=== PATIENT | female | born 1930 | race Caucasian/White ===

== ENCOUNTER 2016-11-18 22:18 | Emergency (ER) | payer OTHER ==
[~2016-11-18] VITALS: Ht 158.8 cm; Wt 48.0 kg
[2016-11-18 22:09] VITALS: TEMP 36.4; Ht 158.8 cm; Wt 48.0 kg
[2016-11-18 22:18] VITALS: O2SAT 93
[~2016-11-18 22:18] MED LIST: AMX250 OR; ASCO100061 PO; BACL10TA PO; CHOL20007 PO; CRAN500C2 PO; CYAN10005 PO; DFL100 PO; Enteral Nutrition Formula PO; HYDR-5688 PO; MRLP17 PO; NRV5 PO; POTA1TAB PO; TIMO0.2528 OP; TPRSR50 PO
[2016-11-18 23:28] LABS: HEMATOCRIT 34.8 % (37-47); MEAN CELL VOLUME 93.3 fL (80-100); MEAN CORPUSCULAR HEMOGLOBIN 31.6 pg (25-34); MEAN CORPUSCULAR HGB CONC 33.9 g/dl (32-36); MEAN PLATELET VOLUME 9.8 fL (7.4-10.4); PLATELET COUNT 487 K/uL (130-400); RED BLOOD COUNT 3.73 M/uL (4.2-5.4); WHITE BLOOD COUNT 10.95 K/uL (4.8-10.8)
[2016-11-18 23:45] LABS: PARTIAL THROMBOPLASTIN RATIO 1.1; PROTHROMBIN TIME (PATIENT) 10.4 SECONDS (9.0-12.0)
[2016-11-18 23:46] LABS: BUN/CREATININE RATIO 27.4 (10-20); CALCIUM 8.8 mg/dl (8.5-10.1); CREATININE 0.76 mg/dl (0.60-1.20); POTASSIUM 3.5 mmol/L (3.5-5.1)
[2016-11-18 23:51] LABS: ALB/GLOB RATIO 0.8 (0.9-2); CKMB/CK RATIO 1.4 (0-3.0)
[2016-11-18] MEDS ORDERED: ACETAMINOPHEN 500 MG TAB PO STA (23:55)
[2016-11-18] MEDS ORDERED: ALBUT/IPRATROP 3MG/0.5MG NEB 3 ML VIAL INH STA (23:55)
[2016-11-19 00:03] LABS: BASO % 0.5 %; BASO ABS # 0.06 K/uL (0-0.2); COMPLETE YES; IG% 0.2 %; LYMPH % 6.8 %; LYMPH ABS # 0.75 K/uL (1.2-3.4); MONO % 8.9 %; NEUT % 80.6 %
[2016-11-19] MEDS ORDERED: AMLO5TAB2 PO (00:56)
--- NOTE | 2016-11-19 00:56 | EMERGENCY ROOM VISIT NOTE ---
History Report prepared by Jessenia: Rusty Sotomayor Under the Supervision of: Dr. Sebas Stanton D.O. First contact with patient: 22:54 Chief Complaint: SHORTNESS OF BREATH Stated Complaint: SOB Nursing Triage Summary: sudden onset SOB this evening. in place R sided Pleural Cath 2 weeks ago from here. has been draining well. per [facility] staff. it is drained daily. pt has dressing in place upon arrival. 76% O2 sat for EMS. arrives on non rebreather. pt has chronic tremors, hx COPD, CHF, HTN, Lung CA had Duoneb en route by EMS History of Present Illness The patient is a 85 year old female who presents to the Emergency Room by EMS with complaints of improving shortness of breath beginning 5.5 hours ago. She states that her symptoms began suddenly while eating dinner. She states that supplemental oxygen has improved her symptoms, though she does not typically wear supplemental oxygen at home. The patient currently has a right sided pleural catheter in her chest wall which she has uses to drain fluid once daily. She has a history of lung cancer without any known metastases. The patient's family notes that the patient drained a significantly larger amount of fluid than usual today. The patient denies any known fevers. She notes that she has been sweating a lot lately. Source of History: patient Onset: 5.5 hours ago Quality: other (shortness of breath) Timing: other (improving) Modifying Factors (Relieving): oxygen (supplemental) Associated Symptoms: No fevers Review of Systems See HPI for pertinent positives & negatives. A total of 10 systems reviewed and were otherwise negative. Past Medical & Surgical Medical Problems: (1) GI bleed (2) Lung cancer (3) Pleural effusion Family History No pertinent family history stated. Social History Smoking Status: Former Smoker Housing Status: shelter Occupation Status: retired Current/Historical Medications Scheduled Amlodipine Besylate (Amlodipine Besylate), 10 MG PO QAM Amlodipine Besylate (Norvasc), 10 MG PO QAM Amoxicillin (Amoxicillin), 250 MG OR DAILY Amoxicillin (Amoxil), 250 MG PO DAILY Ascorbic Acid (Ascorbic Acid), 1,000 MG PO DAILY Cholecalciferol (Vitamin D3), 2,000 UNITS PO DAILY Cranberry (Vaccinium Macrocarp (Cranberry), 500 MG PO DAILY Cyanocobalamin (Vitamin B-12), 2,000 MCG PO DAILY Fluconazole (Fluconazole), 200 MG PO DAILY Hydralazine Hcl (Apresoline), 2 TAB PO TID Irbesartan (Avapro), 1 TAB PO DAILY Metoprolol Succinate (Metoprolol Succinate ER), 50 MG PO QAM Potassium Gluconate (Potassium Gluconate), 595 MG PO DAILY Timolol Maleate 0.25% Oph (Timoptic 0.25% Oph), 1 DROP OP BID [Enteral Nutrition Formula], 1 CAN PO BID17 Scheduled PRN Baclofen (Lioresal), 10 MG PO TID PRN for Muscle Spasms Hydrocodone/Acetaminophen 5MG/325MG ([place] 5MG/325MG), 0.5 TAB PO TID PRN for Pain Polyethylene (Miralax), 17 GM PO DAILY PRN for Constipation Miscellaneous Medications Fish Oil ([place]-3), 1 CAP PO Allergies Coded Allergies: Levofloxacin (Verified Allergy, Unknown, HIVES, 12/07/15) Losartan (Verified Allergy, Unknown, HIVES, 12/07/15) Olmesartan (Verified Allergy, Unknown, HIVES, 12/07/15) Pregabalin (Verified Allergy, Unknown, HIVES, 12/07/15) Sulfa Antibiotics (Verified Allergy, Unknown, HIVES, 12/07/15) Tramadol (Verified Allergy, Unknown, HIVES, 12/07/15) Physical Exam Vital Signs Date Time Temp Pulse Resp B/P Pulse Ox O2 Delivery O2 Flow Rate FiO2 11/19/16 00:30 93 Room Air 11/18/16 23:51 79 20 163/63 91 Nasal Cannula 1.0 11/18/16 22:29 82 11/18/16 22:18 93 Nasal Cannula 5.0 11/18/16 22:18 93 Nasal Cannula 5.0 11/18/16 22:09 36.4 90 26 179/65 88 Nasal Cannula 5.0 11/18/16 22:09 86 Room Air Physical Exam CONSTITUTIONAL/VITAL SIGNS: Reviewed / noted above. GENERAL: Non-toxic in appearance. INTEGUMENTARY: Warm, dry, and [place]. HEAD: Normocephalic. EYES: without scleral icterus or trauma. ENT/OROPHARYNX: clear and moist. LYMPHADENOPATHY/NECK: Is supple without lymphadenopathy or meningismus. RESPIRATORY: No respiratory distress. Diminished in the right lung field about care home up the lung. CARDIOVASCULAR: Regular rate and rhythm. GI/ABDOMEN: Soft and nontender. No organomegaly or pulsatile mass. No rebound or guarding. Normal bowel sounds. EXTREMITIES: Warm and well perfused. BACK: No CVA tenderness. NEUROLOGICAL: Intact without focal deficits. PSYCHIATRIC: normal affect. MUSCULOSKELETAL: Normally developed with good muscle tone. Medical Decision & Procedures ER Provider Diagnostic Interpretation: One View Chest X-ray interpreted by me: bilateral pleural effusions. Haziness in the lower lung ramirez bilaterally similar to x-ray dated 10/30/16. Laboratory Results 11/18/16 22:47 Red Blood Count 3.73, Mean Corpuscular Volume 93.3, Mean Corpuscular Hemoglobin 31.6, Mean Corpuscular Hemoglobin Concent 33.9, Mean Platelet Volume 9.8, Neutrophils (%) (Auto) 80.6, Lymphocytes (%) (Auto) 6.8, Monocytes (%) (Auto) 8.9, Eosinophils (%) (Auto) 3.0, Basophils (%) (Auto) 0.5, Neutrophils # (Auto) 8.82, Lymphocytes # (Auto) 0.75, Monocytes # (Auto) 0.97, Eosinophils # (Auto) 0.33, Basophils # (Auto) 0.06 11/18/16 22:47 Test 11/18/16 22:47 11/18/16 23:05 White Blood Count 10.95 K/uL (4.8-10.8) Red Blood Count 3.73 M/uL (4.2-5.4) Hemoglobin 11.8 g/dL (12.0-16.0) Hematocrit 34.8 % (37-47) Mean Corpuscular Volume 93.3 fL (80-100) Mean Corpuscular Hemoglobin 31.6 pg (25-34) Mean Corpuscular Hemoglobin Concent 33.9 g/dl (32-36) Platelet Count 487 K/uL (130-400) Mean Platelet Volume 9.8 fL (7.4-10.4) Neutrophils (%) (Auto) 80.6 % Lymphocytes (%) (Auto) 6.8 % Monocytes (%) (Auto) 8.9 % Eosinophils (%) (Auto) 3.0 % Basophils (%) (Auto) 0.5 % Neutrophils # (Auto) 8.82 K/uL (1.4-6.5) Lymphocytes # (Auto) 0.75 K/uL (1.2-3.4) Monocytes # (Auto) 0.97 K/uL (0.11-0.59) Eosinophils # (Auto) 0.33 K/uL (0-0.5) Basophils # (Auto) 0.06 K/uL (0-0.2) RDW Standard Deviation 52.1 fL (36.4-46.3) RDW Coefficient of Variation 15.3 % (11.5-14.5) Immature Granulocyte % (Auto) 0.2 % Immature Granulocyte # (Auto) 0.02 K/uL (0.00-0.02) Red Blood Cell Morphology Unremarkable Prothrombin Time 10.4 SECONDS (9.0-12.0) Prothromb Time International Ratio 1.0 (0.9-1.1) Activated Partial Thromboplast Time 28.8 SECONDS (21.0-31.0) Partial Thromboplastin Ratio 1.1 Anion Gap 12.0 mmol/L (3-11) Est Creatinine Clear Calc Drug Dose 41.8 ml/min Estimated GFR () 83.5 Estimated GFR (Non- 72.0 BUN/Creatinine Ratio 27.4 (10-20) Calcium Level 8.8 mg/dl (8.5-10.1) Total Bilirubin 0.2 mg/dl (0.2-1) Aspartate Amino Transf (AST/SGOT) 20 U/L (15-37) Alanine Aminotransferase (ALT/SGPT) 14 U/L (12-78) Alkaline Phosphatase 60 U/L (45-117) Total Creatine Kinase 152 U/L (26-192) Creatine Kinase MB 2.2 ng/ml (0.5-3.6) Creatine Kinase MB Ratio 1.4 (0-3.0) Total Protein 5.9 gm/dl (6.4-8.2) Albumin 2.7 gm/dl (3.4-5.0) Globulin 3.2 gm/dl (2.5-4.0) Albumin/Globulin Ratio 0.8 (0.9-2) Bedside Lactic Acid Venous 1.48 mmol/L (0.90-1.70) Laboratory results as stated above per my review. Medications Administered Medications (Trade) Dose Ordered Sig/Maeve Route Start Time Stop Time Status Last Admin Dose Admin Albuterol/ Ipratropium (Duoneb) 3 ml NOW STAT INH 11/18/16 23:55 11/18/16 23:56 DC 11/19/16 00:09 3 ML Acetaminophen (Tylenol Tab) 500 mg NOW STAT PO 11/18/16 23:55 11/18/16 23:56 DC 11/19/16 00:09 500 MG ECG Indication: SOB/dyspnea Rate (beats per minute): 85 Rhythm: sinus rhythm Findings: PVC, no acute ischemic change ED Course 2304: Previous medical records were reviewed. The patient was evaluated in room B11B. A complete history and physical examination was performed. 2355: Ordered Tylenol Tab 500 mg PO, DuoNeb 3 mL INH. 0100: On reevaluation, the patient is resting comfortably. I discussed the results and findings with the patient. She verbalized agreement of the treatment plan. She was discharged home. Medical Decision the differential was considered includes acute myocardial infarction, acute coronary syndrome, myocarditis, pericarditis, pericardial effusions /tamponad, esophageal perforation, pulmonary embolism, pneumonia, pneumothorax, cardiomyopathy, congestive heart, anemia , COPD/asthma exacerbation. The patient is an 85-year-old female who presents to the ED with a chief complaint of shortness of breath and low pulse ox. The patient has a history of pleural effusion and fluid accumulations. She had a parent catheter placed to drain the fluid. The patient 500 mL of fluid drained from the right lung earlier today at the shelter. Additional fluid was not drained this evening. She was found to be hypoxic. She was sent here for evaluation. The patient's lung sounds reveal diminished breath sounds on the right. She is in no distress. CBC shows a white blood cell count of 10.9 and hemoglobin 11.8. Her chemistry panel was unremarkable. Chest x-ray reveals bilateral pleural effusions and looks similar to previous x-ray. The pleural catheter was accessed and 500 mL of fluid was drained of the lung. The patient's saturations after a DuoNeb treatment and this drainage was 93% on room air. Her symptoms improved. She is felt to be stable for discharge and outpatient follow-up. Impression Primary Impression: Pleural effusion Additional Impression: Dyspnea Scribe Attestation The scribe's documentation has been prepared under my direction and personally reviewed by me in its entirety. I confirm that the note above accurately reflects all work, treatment, procedures, and medical decision making performed by me. Departure Information Dispostion Home / Self-Care Referrals Vivek Mayer M.D. (PCP) Patient Instructions A Signature Page, My [facility] Additional Instructions Follow-up with your doctor for further care and evaluation in 1-2 days. Return to the emergency department for worsening or new symptoms or any concerns. You have been examined and treated today on an emergency basis only. This is not a substitute for, or an effort to provide, complete comprehensive medical care. It is impossible to recognize and treat all injuries or illnesses in a single emergency department visit. It is therefore important that you follow up closely with your doctor. Call as soon as possible for an appointment. Problem Qualifiers
[2016-11-19] MEDS ORDERED: AMOX250C3 PO (00:57)
[2016-11-19] MEDS ORDERED: ACET-1311 PO (01:08)
[2016-11-19] MEDS ORDERED: ACET650S10 PR (01:10)
[2016-11-19] MEDS ORDERED: POLY335019 PO (01:11)
[2016-11-19] MEDS ORDERED: BACL10TA PO (01:12)
[2016-11-19] MEDS ORDERED: HYDR-5688 PO (01:14)
[2016-11-19] MEDS ORDERED: MOML PO (01:15)
[2016-11-19 05:41] VITALS: BP 150/70; PULSE 74; O2SAT 96
--- NOTE | 2016-11-19 07:27 | DIAGNOSTIC IMAGING REPORT ---
SINGLE VIEW CHEST CLINICAL HISTORY: Dyspnea. FINDINGS: An AP, portable, upright chest radiograph is compared to study dated 11/04/2016. Correlation is made with PET/CT dated 09/01/2016. The examination is degraded by portable technique and patient rotation. A pleural catheter is again noted at the right lung base. The heart is enlarged and there is atherosclerotic calcification of the thoracic aorta. There is pulmonary vascular congestion with mild interstitial edema. Emphysema and chronic interstitial thickening are similar to previous. There are layering pleural effusions with bibasilar consolidation. No pneumothorax is seen. The skeletal structures are osteopenic. Degenerative change and S-shaped thoracolumbar scoliosis are noted in the spine. There are compression deformities with evidence of previous vertebroplasty in the lumbar spine. IMPRESSION: 1. Cardiomegaly with evidence of congestive failure and interstitial edema. 2. There are layering pleural effusions with bibasilar consolidation. This likely represents atelectasis. Correlate clinically for evidence of a superimposed infectious or inflammatory pneumonitis. 3. Emphysema. 4. A pleural catheter is again noted at the right lung base. Electronically signed by: Anders Orozco M.D. 11/19/2016 7:25 AM Dictated Date/Time: 11/19/2016 7:23 AM
[2017-02-20] MEDS ORDERED: METO50TA7 PO (01:04)
[2017-02-20] MEDS ORDERED: MULT-506 PO (01:06)
[2017-02-20] MEDS ORDERED: ACET-1256 PO (09:38)
[2017-02-20] MEDS ORDERED: TRN400 PO (10:08)
[2017-02-20] MEDS ORDERED: ATRINS NEB (10:08)
[2017-02-20] MEDS ORDERED: UMEC1AER INH (10:08)
[2017-02-20] MEDS ORDERED: MULT-411 PO (10:08)
[2017-02-20] MEDS ORDERED: FAMO20TA11 PO (10:08)
[2017-02-20] MEDS ORDERED: CYAN10005 PO (10:08)
[2017-02-20] MEDS ORDERED: DOCU100T PO (10:08)
[2017-02-20] MEDS ORDERED: AMLO-114 PO (10:08)
[2017-02-20] MEDS ORDERED: DIPH1TAB PO (19:14)
[2017-03-23] MEDS ORDERED: LSX20 PO (12:15)
[2017-03-23] MEDS ORDERED: METH4PAK PO (12:15)
[2017-03-23] MEDS ORDERED: APR25 PO (12:15)
[2017-03-23] MEDS ORDERED: OXYC1TAB3 PO (12:15)
[2017-04-14] MEDS ORDERED: FRS/40 PO (10:48)
[2017-04-14] MEDS ORDERED: POTA10CA28 PO (10:52)
[2017-04-14] MEDS ORDERED: SENN-61 PO (10:54)
[2017-04-14] MEDS ORDERED: OXYC20TA50 PO (10:57)
[2017-04-14] MEDS ORDERED: ACET325T95 PO (10:58)
== END 2016-11-19 05:42 | disposition home or self-care (01) ==
LOC: EDBD 22:18 → C.EDB 22:19
DX: J90 Pleural effusion, not elsewhere classified (principal); R06.00 Dyspnea, unspecified; Z97.8 Presence of other specified devices; C34.90 Malignant neoplasm of unspecified part of unspecified bronchus or lung; I50.9 Heart failure, unspecified; J44.9 Chronic obstructive pulmonary disease, unspecified; I10 Essential (primary) hypertension; Z87.891 Personal history of nicotine dependence

== ENCOUNTER → 2016-11-30 | Outpatient (CLI) | payer OTHER ==
[~2016-11-30] MED LIST changes: +ACET-1256 PO; +ACET-1311 PO; +ACET325T95 PO; +ACET650S10 PR; +AMLO-114 PO; +AMLO5TAB2 PO; +AMOX250C3 PO; -AMX250 OR; +APR25 PO; +ASCO10003 PO; +ASCO1CAP3 PO; +ASPI325T39 PO; +ASPI81TA28 PO; +ATRINS NEB; +CHOL20009 PO; +CIPR-255 PO; +CITA20TA9 PO; +CRAN PO; -DFL100 PO; +DIAZ-165 PO; +DIPH1TAB PO; +DLCS RE; +DOCU100T PO; +FAMO20TA11 PO; +FRS/40 PO; +FURO-85 PO; +HYDR-4715 PO; +HYDR1LOT6 TOP; +IRBE-39 PO; +LSX20 PO; +MELA1TAB22 PO; +METH4PAK PO; +METO50TA7 PO; +MOML PO; -MRLP17 PO; +MULT-411 PO; +MULT-506 PO; -NRV5 PO; +OMEG10007 PO; +ONDA4TAB46 PO; +OXGN; +OXYC1CAP5 PO; +OXYC1TAB3 PO; +OXYC20TA50 PO; +POLY335019 PO; +POTA10CA28 PO; +SENN-61 PO; +SERT25TA PO; +SODI1ENE; +SPIR25TA PO; +TIMO0.05 OP; +TORS20TA2 PO; -TPRSR50 PO; +TRN400 PO; +UMEC1AER INH; +VALA500T60 PO; +melatonin PO; +vitamin d PO
--- NOTE | 2016-11-30 11:23 | DIAGNOSTIC IMAGING REPORT ---
CHEST 2 VIEWS ROUTINE CLINICAL HISTORY: Pleural effusion COMPARISON STUDY: 11/18/2016 FINDINGS: The heart remains enlarged. There is a right-sided pleural drain present. No pneumothorax is visualized. There is an increasing left pleural effusion. There is a persistent small right pleural effusion. There is improving pulmonary vascular congestion. There is persistent left basilar atelectasis/consolidation.[ IMPRESSION: 1. Cardiomegaly and improving pulmonary vascular congestion 2. Enlarging left pleural effusion with associated left basilar atelectasis/consolidation 3. No change the position right-sided chest tube. Small right pleural effusion. No evidence of pneumothorax. Electronically signed by: Chris Carlos M.D. 11/30/2016 11:21 AM Dictated Date/Time: 11/30/2016 11:20 AM
== END | disposition home or self-care (01) ==
LOC: C.RAD1850 10:26
PROVIDERS: ATTEND Surgery
DX: J90 Pleural effusion, not elsewhere classified (principal)

== ENCOUNTER → 2017-01-07 | Outpatient (CLI) | payer OTHER ==
--- NOTE | 2017-01-07 09:50 | DIAGNOSTIC IMAGING REPORT ---
CHEST 2 VIEWS ROUTINE CLINICAL HISTORY: J90 Pleural [id number] dyspnea COMPARISON STUDY: 11/30/2016 FINDINGS: Right basilar catheter unchanged in position. Mild increase in volume of bilateral pleural effusions. Developing components of congestive failure. IMPRESSION: Progressive components of congestive failure. Mild increase in volume of bilateral pleural effusions. Electronically signed by: Leonidas Chaparro M.D. 01/07/2017 9:49 AM Dictated Date/Time: 01/07/2017 9:47 AM
== END | disposition home or self-care (01) ==
LOC: C.RAD1850 09:25
PROVIDERS: ATTEND Internal Medicine
DX: J90 Pleural effusion, not elsewhere classified (principal)

== ENCOUNTER 2017-01-08 09:13 | Day surgery (SDC) | payer OTHER ==
[~2017-01-08] VITALS: Ht 157.5 cm; Wt 47.0 kg
[~2017-01-08 09:13] MED LIST changes: -ACET-1256 PO; -ACET325T95 PO; -AMLO-114 PO; -APR25 PO; -ASCO10003 PO; -ASCO1CAP3 PO; -ASPI325T39 PO; -ASPI81TA28 PO; -ATRINS NEB; -CHOL20009 PO; -CIPR-255 PO; -CITA20TA9 PO; -CRAN PO; -DIAZ-165 PO; -DIPH1TAB PO; -DLCS RE; -DOCU100T PO; -FAMO20TA11 PO; -FRS/40 PO; -FURO-85 PO; -HYDR-4715 PO; -HYDR1LOT6 TOP; -IRBE-39 PO; -LSX20 PO; -MELA1TAB22 PO; -METH4PAK PO; -METO50TA7 PO; -MULT-411 PO; -MULT-506 PO; -OMEG10007 PO; -ONDA4TAB46 PO; -OXGN; -OXYC1CAP5 PO; -OXYC1TAB3 PO; -OXYC20TA50 PO; -POTA10CA28 PO; -SENN-61 PO; -SERT25TA PO; -SODI1ENE; -SPIR25TA PO; -TIMO0.05 OP; -TORS20TA2 PO; -TRN400 PO; -UMEC1AER INH; -VALA500T60 PO; -melatonin PO; -vitamin d PO
[2017-01-08 09:34] VITALS: BP 162/53; PULSE 70; TEMP 36.7; O2SAT 93; Ht 157.5 cm; Wt 47.0 kg
[2017-01-08] MEDS ORDERED: ACET-1256 PO (09:36)
[2017-01-08] MEDS ORDERED: CRAN PO (10:08)
[2017-01-08] MEDS ORDERED: ASPI325T39 PO (10:08)
[2017-01-08] MEDS ORDERED: VALA500T60 PO (10:08)
[2017-01-08] MEDS ORDERED: melatonin PO (10:08)
[2017-01-08] MEDS ORDERED: vitamin d PO (10:08)
[2017-01-08] MEDS ORDERED: SODI1ENE (10:08)
[2017-01-08] MEDS ORDERED: DLCS RE (10:08)
[2017-01-08] MEDS ORDERED: OXGN (10:08)
[2017-01-08] MEDS ORDERED: SERT25TA PO (10:08)
[2017-01-08] MEDS ORDERED: FURO-85 PO (10:08)
[2017-01-08] MEDS ORDERED: HYDR-4715 PO (10:08)
[2017-01-08] MEDS ORDERED: ACET-1311 PO (10:08)
[2017-01-08] MEDS ORDERED: ASCO1CAP3 PO (10:08)
[2017-01-08] MEDS ORDERED: SPIR25TA PO (10:08)
[2017-01-08] MEDS ORDERED: LIDOCAINE HCL 1% 20 ML VIAL ONE (10:55)
--- NOTE | 2017-01-08 11:32 | SURGERY PROGRESS NOTE ---
DATE: 01/08/2017 SUBJECTIVE: Ms. Cedeño was seen in the career development associate unit. She is quite short of breath. We did discuss placing the PleurX versus a thoracentesis again this morning. She has decreased breath sounds on both sides. We just drained her left PleurX catheter for 350 mL yesterday, which is less than 24 hours ago. I drained it again and I got 225 mL of a clear yellow fluid. I am going to insert a PleurX catheter on the right side for an enlarging pleural effusion. I did do an ultrasound and she has got a large amount of fluid. Her saturation on room air is also 89%.
--- NOTE | 2017-01-08 11:44 | Discharge Instructions ---
Discharge Instructions Visit Reason for Visit: Left Pleural Effusion Discharge Goals Goal(s): Improve function (should help with breathing.) Activity Recommendations Activity Limitations: resume your previous activity Anesthesia . Post Anesthesia Instructions: If you have had General Anesthesia or IV Sedation: * Do not drive today. * Resume driving when surgeon permits. * Do not make important decisions or sign legal documents today. * Call surgeon for: 1. Temperature elevations greater than 101 degrees F. 2. Uncontrollable pain. 3. Excessive bleeding. 4. Persistent nausea and vomiting. 5. Medication intolerance (nausea, vomiting or rash). * For nausea and vomiting use only clear liquids such as: tea, soda, bouillon until nausea subsides, then gradually increase diet as tolerated. * If you have any concerns or questions, call your surgeon's office. If physician is unavailable and it is an emergency, call 911 or go to the nearest emergency room. . Diet Recommendations Recommended Home Diet: no limitations Procedures Procedures Performed: Right pleurx drainage and left pleurx insertion. Right - 225 cc's, Left pleurx - 1,200 cc's Pending Studies Studies pending at discharge: no Medical Emergencies . Who to Call and When: Medical Emergencies: If at any time you feel your situation is an emergency, please call 911 immediately. . Non-Emergent Contact . . "Provider Documentation" section prepared by Dandre Blair.
--- NOTE | 2017-01-08 11:47 | OPERATIVE REPORT ---
DATE OF OPERATION: 01/08/2017 DATE OF PROCEDURE: 01/08/2017. PROCEDURE: Insertion of a left PleurX catheter. SURGEON: Dr. Blair. ANESTHESIA: Local. SPECIFICS OF PROCEDURE: This is a very nice 86-year-old female who has actually multiple problems including inoperable coronary artery disease as well as an early stage lung cancer. Given her age and coronary artery disease the patient declined SBRT therapy for her T1 nonsmall cell lung carcinoma. On 10/28/2016 I placed a right PleurX catheter and we have been draining her since that time. Unfortunately, in the interim, she fell and broke her hip and has been hospitalized at [facility] where they tapped her left side about 3 weeks ago for 1100 mL. Unfortunately, this reaccumulated. I saw her in the office yesterday and she and her daughter are both quite concerned about her shortness of breath. After looking at her x-ray I felt that we had drained her well on the right side, but I was concerned about the left. For this reason, we elected to insert a PleurX catheter. PROCEDURE: On 01/08/2017 after appropriate timeout had been called. The patient's left side was prepped and draped in the usual sterile fashion with the patient in a modified right lateral decubitus position. Under ultrasound guidance, I had marked the spot with ink. I then prepped her out, I then anesthetized the area under the inked spot anterior to the posterior axillary line. Free flowing fluid was obtained and a guidewire was inserted through the needle and needle removed. About 12 cm anterior to this, another skin wheal was raised 25 gauge needle, 1% Xylocaine. I made a 1 cm incision at both. I then used a long needle and anesthetized from the anterior to posterior incisions along the subcutaneous tissues. A tunneler was then attached to the PleurX catheter and dragged from the anterior to posterior incision and the tunneler removed. Introducer sheath was then slid over the guidewire with an inner cannula posterior, inner cannula and guidewire removed and the PleurX catheter was inserted through the peel away sheath which was removed. Two separate 3-0 silk sutures used to close the posterior incision and a 3-0 silk suture was used to anchor the catheter to the patient's skin anteriorly. About 1200 mL of a rust colored fluid was drained. She tolerated it well and chest x-ray is pending at this time. Incidentally, the pH of the fluid which was drawn off was 7.50. Appropriate labs were sent. I attest to the content of the Intraoperative Record and any orders documented therein. Any exceptio ns are noted below.
[2017-01-08 11:50] VITALS: BP 144/59; PULSE 75; TEMP 36.4; O2SAT 91
--- NOTE | 2017-01-08 12:00 | DIAGNOSTIC IMAGING REPORT ---
CHEST ONE VIEW PORTABLE CLINICAL HISTORY: PLEURAL EFFUSION STATUS POST PLEURAL DRAINAGE CATHETER INSERTION COMPARISON STUDY: January 2017 FINDINGS: The heart is mildly enlarged. There are bilateral pleural drainage catheters area there is been marked interval decrease in the size of the left pleural effusion. There is slight decrease in the size of the right pleural effusion. There is an 18 mm left apical pneumothorax. There are bilateral interstitial opacities, consistent with congestive failure and interstitial edema. This is asymmetric on the right.[There is a stable right proximal humeral deformity. IMPRESSION: 1. Marked interval decrease in the size of the left pleural effusion status post insertion of a left pleural drainage catheter 2. 18 mm left apical pneumothorax 3. Interstitial edema pattern Electronically signed by: Chris Carlos M.D. 01/08/2017 11:59 AM Dictated Date/Time: 01/08/2017 11:51 AM
[2017-01-08 12:20] LABS: PLEURAL FLUID TOTAL PROTEIN 2.7 g/dl
[2017-01-08 12:48] LABS: PLEURAL FLUID APPEARANCE HAZY; PLEURAL FLUID COLOR YELLOW; PLEURAL FLUID MONONUC RELAT 83.6 %; PLEURAL FLUID POLYNUC 16.4 %; PLEURAL FLUID SOURCE LEFT LUNG; PLEURAL FLUID WBC (A) 554 /uL
[2017-02-20] MEDS ORDERED: METO50TA7 PO (01:04)
[2017-02-20] MEDS ORDERED: MULT-506 PO (01:06)
[2017-02-20] MEDS ORDERED: ACET-1256 PO (09:38)
[2017-02-20] MEDS ORDERED: TRN400 PO (10:08)
[2017-02-20] MEDS ORDERED: CYAN10005 PO (10:08)
[2017-02-20] MEDS ORDERED: FAMO20TA11 PO (10:08)
[2017-02-20] MEDS ORDERED: MULT-411 PO (10:08)
[2017-02-20] MEDS ORDERED: DOCU100T PO (10:08)
[2017-02-20] MEDS ORDERED: AMLO-114 PO (10:08)
[2017-02-20] MEDS ORDERED: UMEC1AER INH (10:08)
[2017-02-20] MEDS ORDERED: ATRINS NEB (10:08)
[2017-02-20] MEDS ORDERED: DIPH1TAB PO (19:14)
[2017-03-23] MEDS ORDERED: LSX20 PO (12:15)
[2017-03-23] MEDS ORDERED: APR25 PO (12:15)
[2017-03-23] MEDS ORDERED: OXYC1TAB3 PO (12:15)
[2017-03-23] MEDS ORDERED: METH4PAK PO (12:15)
[2017-04-14] MEDS ORDERED: FRS/40 PO (10:48)
[2017-04-14] MEDS ORDERED: POTA10CA28 PO (10:52)
[2017-04-14] MEDS ORDERED: SENN-61 PO (10:54)
[2017-04-14] MEDS ORDERED: OXYC20TA50 PO (10:57)
[2017-04-14] MEDS ORDERED: ACET325T95 PO (10:58)
== END 2017-01-08 11:59 | disposition home or self-care (01) ==
LOC: C.ACU 09:13
PROVIDERS: ATTEND Surgery
DX: J91.8 Pleural effusion in other conditions classified elsewhere (principal); C34.90 Malignant neoplasm of unspecified part of unspecified bronchus or lung; I25.10 Atherosclerotic heart disease of native coronary artery without angina pectoris

== ENCOUNTER → 2017-02-02 | Outpatient (CLI) | payer OTHER ==
[~2017-02-02] MED LIST changes: +ACET-1256 PO; +ACET325T95 PO; -ACET650S10 PR; +AMLO-114 PO; -AMLO5TAB2 PO; -AMOX250C3 PO; +APR25 PO; +ASCO10003 PO; -ASCO100061 PO; +ASCO1CAP3 PO; +ASPI325T39 PO; +ASPI81TA28 PO; +ATRINS NEB; -BACL10TA PO; -CHOL20007 PO; +CHOL20009 PO; +CIPR-255 PO; +CITA20TA9 PO; +CRAN PO; +DIAZ-165 PO; +DIPH1TAB PO; +DLCS RE; +DOCU100T PO; -Enteral Nutrition Formula PO; +FAMO20TA11 PO; +FRS/40 PO; +FURO-85 PO; +HYDR-4715 PO; +HYDR1LOT6 TOP; +IRBE-39 PO; +LSX20 PO; +MELA1TAB22 PO; +METH4PAK PO; +METO50TA7 PO; +MULT-411 PO; +MULT-506 PO; +OMEG10007 PO; +ONDA4TAB46 PO; +OXGN; +OXYC1CAP5 PO; +OXYC1TAB3 PO; +OXYC20TA50 PO; -POLY335019 PO; +POTA10CA28 PO; -POTA1TAB PO; +SENN-61 PO; +SERT25TA PO; +SODI1ENE; +SPIR25TA PO; +TIMO0.05 OP; +TORS20TA2 PO; +TRN400 PO; +UMEC1AER INH; +VALA500T60 PO; +melatonin PO; +vitamin d PO
--- NOTE | 2017-02-02 10:04 | DIAGNOSTIC IMAGING REPORT ---
CHEST 2 VIEWS ROUTINE CLINICAL HISTORY: Pleural effusion COMPARISON STUDY: 01/08/2017 FINDINGS: There are persistent bilateral pleural effusions. Bilateral pleural drainage catheters are again visualized. There is underlying emphysema. There are improving right upper lung zone airspace opacities. There is a new 15 mm nodular opacity within the left upper lung zone. No pneumothorax is visualized.[ On the lateral view there is an elliptical opacity projected of the spine, likely representing intrafissural fluid. IMPRESSION: 1. Persistent bilateral pleural drainage catheters 2. Persistent small bilateral pleural effusions 3. Improving right upper lobe airspace opacities 4. No pneumothorax 5. 15 mm nodular left upper lung zone opacity Electronically signed by: Chris Carlos M.D. 02/02/2017 10:03 AM Dictated Date/Time: 02/02/2017 10:00 AM
== END | disposition home or self-care (01) ==
LOC: C.RAD1850 09:27
PROVIDERS: ATTEND Surgery
DX: J90 Pleural effusion, not elsewhere classified (principal)

== ENCOUNTER 2017-02-20 18:10 | Inpatient (IN) | payer OTHER ==
[~2017-02-20] VITALS: Ht 172.7 cm; Wt 41.0 kg
[~2017-02-20 18:10] MED LIST changes: -ACET325T95 PO; -APR25 PO; -ASCO10003 PO; -ASPI81TA28 PO; -CHOL20009 PO; -CIPR-255 PO; -CITA20TA9 PO; -CRAN500C2 PO; -DIAZ-165 PO; -DIPH1TAB PO; -FRS/40 PO; -HYDR-4715 PO; -HYDR1LOT6 TOP; -IRBE-39 PO; -LSX20 PO; -MELA1TAB22 PO; -METH4PAK PO; -OMEG10007 PO; -ONDA4TAB46 PO; -OXYC1CAP5 PO; -OXYC1TAB3 PO; -OXYC20TA50 PO; -POTA10CA28 PO; -SENN-61 PO; -TIMO0.05 OP; -TORS20TA2 PO
--- NOTE | 2017-02-20 18:22 | EMERGENCY ROOM VISIT NOTE ---
History Report prepared by Jessenia: Marnie Lutz Under the Supervision of: Dr. Sebas Curran M.D. First contact with patient: 18:13 Chief Complaint: RESPIRATORY PROBLEMS Stated Complaint: SOB History of Present Illness The patient is an 86 year old female who presents to the Emergency Room with complaints of worsening respiratory problems. She was brought to the ED via EMS from [facility], where she resides. The patient reports around 1700 this evening, her shortness of breath worsened, so she called an ambulance. The patient has a history of lung cancer and pleural effusions and has bilateral chest tubes in place, that she states the nurses at her facility "drain 250 mL of fluid off every day". EMS reports a total of 900 mL was drained from the tubes today. The patient normally wears 1 Liter of Oxygen and notes it usually provides relief. Her Oxygen saturation was 89% on room air in the field. She also complains of chest pain with inspiration and diffuse abdominal pain. Source of History: patient, EMS Onset: 1700 today Position: chest Quality: other (shortness of breath) Timing: worsening Modifying Factors (Relieving): oxygen Associated Symptoms: + abdominal pain, + chest pain Review of Systems See HPI for pertinent positives & negatives. A total of 10 systems reviewed and were otherwise negative. Past Medical & Surgical Medical Problems: (1) GI bleed (2) Lung cancer (3) Pleural effusion (4) Pleural effusion Social History Smoking Status: Former Smoker Alcohol Use: none Drug Use: none Marital Status: Housing Status: alf Occupation Status: retired Current/Historical Medications Scheduled Acetaminophen (Tylenol), 500 MG PO Q6 Amlodipine (Norvasc), 10 MG PO DAILY Ascorbic Acid (Vitamin C), 1,000 MG PO DAILY Aspirin (Aspirin Ec), 81 MG PO QAM Cholecalciferol (Vitamin D), 2,000 UNITS PO QAM Citalopram Hydrobromide (Celexa), 20 MG PO HS Cranberry (Vaccinium Macrocarp (Cranberry), 1 CAP PO BID Cyanocobalamin (Vitamin B-12), 2,000 MCG PO DAILY Docusate Sodium (Dok), 100 MG PO BID Famotidine (Pepcid), 20 MG PO BID Fish Oil ([place]-3), 1,000 MG PO DAILY Hydralazine Hcl (Apresoline), 20 MG PO TID Ipratropium [place] (Ipratropium [place]), 1 VIAL NEB QID Irbesartan (Avapro), 300 MG PO DAILY Melatonin-Pyridoxine (Melatonin), 3 MG PO HS Metoprolol Succ (Toprol Xl) (Toprol-Xl), 50 MG PO DAILY Multiple Vitamin (Daily Hortencia), 1 TAB PO DAILY Oxycodone Hcl (Oxycodone Hcl), 1 CAP PO QID Pentoxifylline (Pentoxifylline ER), 400 MG PO BID Spironolactone (Aldactone), 25 MG PO QAM Timolol Maleate (Ophth) (Timoptic 0.25% Oph), 1 DROP OP AMPM Torsemide (Demadex), 20 MG PO DAILY Umeclidinium-Vilanterol (Anoro Ellipta 62.5-25 Mcg/INH), 1 PUFF INH DAILY Scheduled PRN Bisacodyl (Bisac-Evac), 10 MG RE DAILY PRN for Constipation Diazepam (Valium), 5 MG PO QID PRN for Anxiety Diphenhydramine Hcl (Benadryl Allergy), 25 MG PO Q6 PRN for Itching Hydrocortisone (Topical) (Hydrocortisone), 1 APPLN TOP BID PRN for Itching Magnesium Hydroxide (Milk Of Magnesia), 30 ML PO DAILY PRN for Constipation Oxycodone Ir (Roxicodone Ir), 1-2 TAB PO Q4H PRN for Severe Pain Allergies Coded Allergies: Levofloxacin (Verified Allergy, Unknown, HIVES, 01/08/17) Losartan (Verified Allergy, Unknown, HIVES, 01/08/17) Olmesartan (Verified Allergy, Unknown, HIVES, 01/08/17) Pregabalin (Verified Allergy, Unknown, HIVES, 01/08/17) Sulfa Antibiotics (Verified Allergy, Unknown, HIVES, 12/07/15) Tramadol (Verified Allergy, Unknown, HIVES, 12/07/15) Physical Exam Vital Signs Date Time Temp Pulse Resp B/P Pulse Ox O2 Delivery O2 Flow Rate FiO2 02/20/17 21:40 83 24 99 02/20/17 21:30 120/98 02/20/17 21:10 90 32 98 02/20/17 21:05 85 20 97 02/20/17 21:00 149/60 02/20/17 20:35 91 25 96 02/20/17 20:31 146/64 02/20/17 20:00 123/52 97 Nasal Cannula 2.0 02/20/17 19:40 88 27 91 02/20/17 19:35 88 22 123/52 94 Nasal Cannula 2.0 02/20/17 19:34 88 Room Air 02/20/17 19:30 175/71 02/20/17 19:10 75 27 100 Nebulizer 02/20/17 19:00 173/65 02/20/17 18:46 68 02/20/17 18:40 68 24 100 Nebulizer 02/20/17 18:30 182/73 02/20/17 18:23 89 Room Air 02/20/17 18:23 98 Nasal Cannula 2.0 02/20/17 18:23 36.8 67 26 173/58 100 Nasal Cannula 2.0 02/20/17 18:23 89 Room Air Physical Exam GENERAL: Patient is cachectic-appearing. HEAD: Normocephalic atraumatic EYES: Ocular movements intact pupils equal and react to light OROPHARYNX mucous membranes are moist no exudates present no erythema or edema present NECK: Supple no nuchal rigidity CHEST: Good equal expansion, [address] LUNGS: Clear and equal to auscultation CARDIAC: Normal S1 and S2 ABDOMEN: Soft nontender no guarding BACK: No CVA tenderness EXTREMITIES: No pain upon palpation normal muscle strength in all groups no clubbing cyanosis or edema NEURO: Patient is following commands is answering questions appropriately. Alert and oriented x3 Cranial Nerves 2-12 grossly intact Medical Decision & Procedures ER Provider Diagnostic Interpretation: This X-Ray was reviewed and interpreted by myself and the radiologist. CHEST ONE VIEW PORTABLE IMPRESSION: 1. Interstitial thickening and patchy bilateral opacities. Mild pulmonary edema is favored although an infectious process could appear similar. 2. Interval decrease in bilateral pleural effusions since prior exam. Bilateral pleural catheters remain in place. No pneumothorax identified. 3. Redemonstration of the 2 cm irregular left upper lobe nodule. Electronically signed by: Jean Mcdonald M.D. 02/20/2017 6:[address] scans were reviewed and interpreted by the radiologist and reviewed by myself. CT OF THE ABDOMEN AND PELVIS WITH CONTRAST IMPRESSION: 1. Exam significantly compromised by paucity of intra-abdominal fat and lack of oral contrast. 2. Moderate right hydronephrosis of uncertain etiology. No ureteral calculus identified. 3. Extensive colonic diverticulosis without evidence for acute diverticulitis. 4. No bowel obstruction. 5. Moderate gallbladder distention without pericholecystic infiltration. This is likely unchanged since prior PET/CT. Electronically signed by: Jean Mcdonald M.D. 02/20/2017 8:[address] ANGIOGRAPHY OF THE CHEST, PULMONARY EMBOLUS PROTOCOL IMPRESSION: 1. No pulmonary emboli identified. 2. Small bilateral pleural effusions with bilateral pleural catheters in place. The effusions have decreased in size since CT of November 20, 2016. 3. Consolidation within the posterior segment of the right upper lobe with scattered additional airspace opacities throughout the lungs which favor a multifocal pneumonia. 4. No change in the 2.1 cm spiculated left upper lobe nodule suggestive of primary bronchogenic carcinoma. 5. Moderate to severe emphysema. 6. Moderate cardiomegaly and extensive coronary artery calcification. Electronically signed by: Jean Mcdonald M.D. 02/20/2017 8:34 PM Laboratory Results 02/20/17 18:50 Red Blood Count 3.51, Mean Corpuscular Volume 92.0, Mean Corpuscular Hemoglobin 30.2, Mean Corpuscular Hemoglobin Concent 32.8, Mean Platelet Volume 9.1, Neutrophils (%) (Auto) 77.1, Lymphocytes (%) (Auto) 9.9, Monocytes (%) (Auto) 10.3, Eosinophils (%) (Auto) 1.7, Basophils (%) (Auto) 0.6, Neutrophils # (Auto ) 7.64, Lymphocytes # (Auto) 0.98, Monocytes # (Auto) 1.02, Eosinophils # (Auto ) 0.17, Basophils # (Auto) 0.06 02/20/17 18:50 Test 02/20/17 18:50 02/20/17 21:56 White Blood Count 9.91 K/uL (4.8-10.8) Red Blood Count 3.51 M/uL (4.2-5.4) Hemoglobin 10.6 g/dL (12.0-16.0) Hematocrit 32.3 % (37-47) Mean Corpuscular Volume 92.0 fL (80-100) Mean Corpuscular Hemoglobin 30.2 pg (25-34) Mean Corpuscular Hemoglobin Concent 32.8 g/dl (32-36) Platelet Count 490 K/uL (130-400) Mean Platelet Volume 9.1 fL (7.4-10.4) Neutrophils (%) (Auto) 77.1 % Lymphocytes (%) (Auto) 9.9 % Monocytes (%) (Auto) 10.3 % Eosinophils (%) (Auto) 1.7 % Basophils (%) (Auto) 0.6 % Neutrophils # (Auto) 7.64 K/uL (1.4-6.5) Lymphocytes # (Auto) 0.98 K/uL (1.2-3.4) Monocytes # (Auto) 1.02 K/uL (0.11-0.59) Eosinophils # (Auto) 0.17 K/uL (0-0.5) Basophils # (Auto) 0.06 K/uL (0-0.2) RDW Standard Deviation 61.4 fL (36.4-46.3) RDW Coefficient of Variation 18.1 % (11.5-14.5) Immature Granulocyte % (Auto) 0.4 % Immature Granulocyte # (Auto) 0.04 K/uL (0.00-0.02) Anion Gap 8.0 mmol/L (3-11) Est Creatinine Clear Calc Drug Dose 43.6 ml/min Estimated GFR () 91.6 Estimated GFR (Non- 79.0 BUN/Creatinine Ratio 30.0 (10-20) Calcium Level 8.2 mg/dl (8.5-10.1) Total Bilirubin 0.2 mg/dl (0.2-1) Aspartate Amino Transf (AST/SGOT) 17 U/L (15-37) Alanine Aminotransferase (ALT/SGPT) 12 U/L (12-78) Alkaline Phosphatase 77 U/L (45-117) Total Creatine Kinase 45 U/L (26-192) Creatine Kinase MB 1.2 ng/ml (0.5-3.6) Creatine Kinase MB Ratio 2.7 (0-3.0) Troponin I < 0.015 ng/ml (0-0.045) Pro-B-Type Natriuretic Peptide 69033 pg/ml (0-1800) Total Protein 6.0 gm/dl (6.4-8.2) Albumin 2.5 gm/dl (3.4-5.0) Globulin 3.5 gm/dl (2.5-4.0) Albumin/Globulin Ratio 0.7 (0.9-2) Urine Color YELLOW Urine Appearance TURBID (CLEAR) Urine pH 6.0 (4.5-7.5) Urine Specific [place] 1.027 (1.000-1.030) Urine Protein NEG (NEG) Urine Glucose (UA) NEG (NEG) Urine Ketones NEG (NEG) Urine Occult Blood 1+ (NEG) Urine Nitrite NEG (NEG) Urine Bilirubin NEG (NEG) Urine Urobilinogen NEG (NEG) Urine Leukocyte Esterase LARGE (NEG) Urine WBC (Auto) >30 /hpf (0-5) Urine RBC (Auto) 5-10 /hpf (0-4) Urine Hyaline Casts (Auto) 1-5 /lpf (0-5) Urine Epithelial Cells (Auto) 20-30 /lpf (0-5) Urine Bacteria (Auto) 4+ (NEG) Labs reviewed by ED physician. Medications Administered Medications (Trade) Dose Ordered Sig/Maeve Route Start Time Stop Time Status Last Admin Dose Admin Albuterol/ Ipratropium (Duoneb) 12 ml ONE ONCE INH 02/20/17 18:30 02/20/17 18:31 DC 02/20/17 18:37 12 ML Torsemide (Demadex Tab) 20 mg NOW STAT PO 02/20/17 19:38 02/20/17 19:40 DC 02/20/17 19:57 20 MG Morphine Sulfate (MoRPHine SULFATE INJ) 4 mg NOW STAT IV 02/20/17 19:46 02/20/17 19:48 DC 02/20/17 19:58 4 MG Ondansetron HCl (Zofran Inj) 4 mg NOW STAT IV 02/20/17 19:46 02/20/17 19:48 DC 02/20/17 19:58 4 MG Piperacillin Sod/ Tazobactam Sod 4.5 gm 4.5 gm NOW STAT IV 02/20/17 20:59 02/20/17 21:03 DC 02/20/17 21:32 4.5 GM Azithromycin/ Dextrose (Zithromax IV/D5 250ml) 255 ml @ 125 mls/hr ONE STAT IV 02/20/17 20:59 02/20/17 23:01 DC 4/15/17 23:07 125 MLS/HR ECG Indication: SOB/dyspnea Rate (beats per minute): 70 Rhythm: normal sinus (normal sinus rhythm) Findings: no acute ischemic change, no ectopy ED Course 1816: Past medical records reviewed. The patient was evaluated in room B6. A complete history and physical examination was performed. 1829: DuoNeb 12 ml INH. 1937: Demadex Tab 20 mg PO. 1939: I reevaluated the patient. She is resting comfortably. I discussed my recommendation that she remain in the hospital for further evaluation and management and she verbalized complete understanding and agreement. 1942: I discussed the patients case with Dr. Mejia [facility] Hospitalist. The patient will be further evaluated. 1945: Zofran 4 mg IV, Morphine Sulfate 4 mg IV. 2046: I spoke with the patients family members. I informed them of my recommendation that the patient remain in the hospital for further evaluation and management and they verbalized complete understanding and agreement. Medical Decision Prior records/ancillary studies reviewed. Triage Nursing notes reviewed. Additional history obtained from the family. The patient's history was concerning for respiratory difficulties. Differential diagnosis: Etiologies such as infections, reactive airway disease, pneumonia, pneumothorax , COPD, CHF, cardiac ischemia, pulmonary embolism, musculoskeletal, gastrointestinal, as well as others were entertained. This is an 86-year-old female who presents emergency department complaining of shortness of breath. The patient has [address] and she had increased drainage today from them. Her chest x-rays concerning for pulmonary edema versus pneumonia. For this reason she was sent for a CAT scan of the chest which is concerning for pneumonia. The patient was pancultured up and given her diuretic. She was started on antibiotics here in the emergency department. I did discuss the case with hospitalist service who agreed to admit the patient. Patient was in agreement with the treatment plan. Consults Time Called: 1939 Consulting Physician: Dr. Mejia [facility] Hospitalist Returned Call: 1942 I discussed the patients case with Dr. Mejia [facility] Hospitalist. The patient will be further evaluated. Impression Primary Impression: Hypoxia Additional Impression: Pulmonary edema Scribe Attestation The scribe's documentation has been prepared under my direction and personally reviewed by me in its entirety. I confirm that the note above accurately reflects all work, treatment, procedures, and medical decision making performed by me. Departure Information Dispostion Being Evaluated By Hospitalist Referrals Vivek Mayer M.D. (PCP) Patient Instructions [facility] Problem Qualifiers Additional Impression: Pulmonary edema Chronicity: acute Qualified Codes: J81.0 - Acute pulmonary edema
[2017-02-20] MEDS ORDERED: ALBUT/IPRATROP 3MG/0.5MG NEB 3 ML VIAL INH ONE (18:30)
--- NOTE | 2017-02-20 18:49 | DIAGNOSTIC IMAGING REPORT ---
CHEST ONE VIEW PORTABLE CLINICAL HISTORY: Shortness of breath. COMPARISON STUDY: Chest radiograph February 02, 2017. FINDINGS: A 2 cm left upper lobe nodular density is again noted. Bilateral basilar pleural catheters remain in place. Pleural effusions have decreased in size since exam of January 25, 2017. There is mild interstitial thickening and patchy bilateral airspace opacities. A skin fold projects of the right hemithorax. No pneumothorax is visualized. Cardiomediastinal silhouette is stable. IMPRESSION: 1. Interstitial thickening and patchy bilateral opacities. Mild pulmonary edema is favored although an infectious process could appear similar. 2. Interval decrease in bilateral pleural effusions since prior exam. Bilateral pleural catheters remain in place. No pneumothorax identified. 3. Redemonstration of the 2 cm irregular left upper lobe nodule. Electronically signed by: Jean Mcdonald M.D. 02/20/2017 6:48 PM Dictated Date/Time: 02/20/2017 6:43 PM
[2017-02-20 19:00] LABS: BASO % 0.6 %; BASO ABS # 0.06 K/uL (0-0.2); COMPLETE YES; EOS % 1.7 %; HEMATOCRIT 32.3 % (37-47); IG% 0.4 %; LYMPH % 9.9 %; LYMPH ABS # 0.98 K/uL (1.2-3.4); MEAN CORPUSCULAR HEMOGLOBIN 30.2 pg (25-34); MEAN CORPUSCULAR HGB CONC 32.8 g/dl (32-36); MEAN PLATELET VOLUME 9.1 fL (7.4-10.4); MONO % 10.3 %; NEUT % 77.1 %; PLATELET COUNT 490 K/uL (130-400); RED BLOOD COUNT 3.51 M/uL (4.2-5.4); WHITE BLOOD COUNT 9.91 K/uL (4.8-10.8)
[2017-02-20] MEDS ORDERED: SPIR25TA PO (19:06)
[2017-02-20] MEDS ORDERED: CHOL20009 PO (19:06)
[2017-02-20] MEDS ORDERED: CRAN500C2 PO (19:06)
[2017-02-20] MEDS ORDERED: ASCO10003 PO (19:06)
[2017-02-20] MEDS ORDERED: DIAZ-165 PO (19:06)
[2017-02-20] MEDS ORDERED: ASPI81TA28 PO (19:06)
[2017-02-20] MEDS ORDERED: TORS20TA2 PO (19:06)
[2017-02-20] MEDS ORDERED: TIMO0.05 OP (19:06)
[2017-02-20] MEDS ORDERED: OXYC1CAP5 PO (19:06)
[2017-02-20] MEDS ORDERED: CITA20TA9 PO (19:06)
[2017-02-20] MEDS ORDERED: DIPH1TAB87 PO (19:14)
[2017-02-20] MEDS ORDERED: OXYC1TAB3 PO (19:14)
[2017-02-20] MEDS ORDERED: MELA1TAB22 PO (19:14)
[2017-02-20] MEDS ORDERED: HYDR1LOT6 TOP (19:14)
[2017-02-20 19:19] LABS: ALT/SGPT 12 U/L (12-78); AST/SGOT 17 U/L (15-37); BLOOD UREA NITROGEN 21 mg/dl (7-18); CALCIUM 8.2 mg/dl (8.5-10.1); CARBON DIOXIDE 27 mmol/L (21-32); CHLORIDE 105 mmol/L (98-107); GLUCOSE 84 mg/dl (70-99); POTASSIUM 3.5 mmol/L (3.5-5.1); SODIUM 140 mmol/L (136-145)
[2017-02-20 19:32] LABS: ALB/GLOB RATIO 0.7 (0.9-2); ALKALINE PHOSPHATASE 77 U/L (45-117); CKMB/CK RATIO 2.7 (0-3.0)
[2017-02-20] MEDS ORDERED: TORSEMIDE 20 MG TAB PO STA (19:38)
[2017-02-20] MEDS ORDERED: MoRPHine SULFATE 4 MG/ML 1 ML CARP\\VIAL IV STA (19:46)
[2017-02-20] MEDS ORDERED: ONDANSETRON INJ 2 MG/ML 2 ML VIAL IV STA (19:46)
[2017-02-20] MEDS ORDERED: IRBE-39 PO (20:07)
[2017-02-20] MEDS ORDERED: HYDR-4715 PO (20:12)
[2017-02-20] MEDS ORDERED: OMEG10007 PO (20:20)
[2017-02-20] MEDS ORDERED: OPTIRAY 320 IV PRN (20:30)
--- NOTE | 2017-02-20 20:36 | DIAGNOSTIC IMAGING REPORT ---
CT ANGIOGRAPHY OF THE CHEST, PULMONARY EMBOLUS PROTOCOL CLINICAL HISTORY: Shortness of breath. Chest pain. Non-small cell lung cancer. COMPARISON STUDY: Chest CT November 20, 2016 and chest radiograph performed earlier today. TECHNIQUE: Following IV administration of 118 mL of Optiray-320, helical axial images of the chest were obtained utilizing the pulmonary embolus protocol. Maximal intensity projections and sagittal and coronal reformats were viewed on an independent 3D workstation. IV contrast was administered without complication. CT DOSE: 422.25 mGy.cm FINDINGS: No pulmonary emboli are identified. There is no evidence of thoracic aortic dissection. The heart is moderately enlarged. This extensive coronary artery calcification. There is no pericardial effusion. Bilateral pleural catheters are in place. Small bilateral pleural effusions have decreased in size since exam of November 20, 2016. There is no pneumothorax. There is severe emphysema. A 2.1 cm spiculated left upper lobe nodule is similar to exam of November 20, 2016. There is consolidation within the posterior segment of the right upper lobe. There are scattered additional airspace opacities throughout the lungs which are new since prior CT. There is an old sternal fracture. There is an old L1 compression fracture with mild retropulsion. There are old bilateral rib fractures. An old T4 compression fracture is present. IMPRESSION: 1. No pulmonary emboli identified. 2. Small bilateral pleural effusions with bilateral pleural catheters in place. The effusions have decreased in size since CT of November 20, 2016. 3. Consolidation within the posterior segment of the right upper lobe with scattered additional airspace opacities throughout the lungs which favor a multifocal pneumonia. 4. No change in the 2.1 cm spiculated left upper lobe nodule suggestive of primary bronchogenic carcinoma. 5. Moderate to severe emphysema. 6. Moderate cardiomegaly and extensive coronary artery calcification. Electronically signed by: Jean Mcdonald M.D. 02/20/2017 8:34 PM Dictated Date/Time: 02/20/2017 8:24 PM
--- NOTE | 2017-02-20 20:46 | DIAGNOSTIC IMAGING REPORT ---
CT OF THE ABDOMEN AND PELVIS WITH CONTRAST CLINICAL HISTORY: Abdominal pain. COMPARISON STUDY: PET/CT September 01, 2016. TECHNIQUE: Following IV administration of 118 mL of Optiray-320, axial images of the abdomen and pelvis were obtained from the lung bases to the proximal femurs. Images were reviewed in the axial, sagittal, and coronal planes. IV contrast was administered without complication. FINDINGS: The chest will be reported separately. This exam is significantly compromised by lack of oral contrast and paucity of intra-abdominal fat. The gallbladder is moderately distended. There is no pericholecystic infiltration. Numerous subcentimeter hepatic lesions likely reflect cysts. There is marked left renal atrophy. There are innumerable bilateral renal cysts. There is moderate right hydronephrosis. No ureteral calculus is identified. Images of the pelvis are degraded by streak artifact from a left femoral internal fixation. There is a healing intertrochanteric fracture of the left femur. There are numerous compression fractures within the lumbar spine which are likely old. A 1 level augmentation is noted. There is extensive atherosclerotic plaque of the abdominal aorta. Common iliac stents are in place. There is no biliary or pancreatic ductal dilatation. The spleen and adrenal glands are unremarkable. There is left colon diverticulosis without evidence for acute diverticulitis. There is no ascites. There is no abscess. No lymphadenopathy is present. IMPRESSION: 1. Exam significantly compromised by paucity of intra-abdominal fat and lack of oral contrast. 2. Moderate right hydronephrosis of uncertain etiology. No ureteral calculus identified. 3. Extensive colonic diverticulosis without evidence for acute diverticulitis. 4. No bowel obstruction. 5. Moderate gallbladder distention without pericholecystic infiltration. This is likely unchanged since prior PET/CT. Electronically signed by: Jean Mcdonald M.D. 02/20/2017 8:44 PM Dictated Date/Time: 02/20/2017 8:34 PM
[2017-02-20] MEDS ORDERED: AZITHROMYCIN IV 500 MG in DEXTROSE 5% 250ML 250 ML IV STA (20:59)
[2017-02-20] MEDS ORDERED: PIPERACILLIN/TAZOBACTAM 4.5 GM/100ML D5W IV STA (20:59)
[2017-02-20] MEDS ORDERED: VANCOMYCIN INJ 1,000 MG in SODIUM CHLORIDE 0.9% 250ML 250 ML IV STA (20:59)
--- NOTE | 2017-02-20 21:52 | History and Physical ---
History & Physical Date & Time of Service: Feb 20, 2017 at 21:51 Chief Complaint: SOB Primary Care Physician: Vivek Mayer M.D. Past Medical/Surgical History Medical Problems: (1) GI bleed Status: Resolved (2) Lung cancer Status: Chronic (3) Pleural effusion Status: Chronic Social History Smoking Status: Former Smoker Drug Use: none Marital Status: Housing status: lives alone Occupational Status: retired Immunizations History of Influenza Vaccine: Unknown Allergies Coded Allergies: Levofloxacin (Verified Allergy, Unknown, HIVES, 01/08/17) Losartan (Verified Allergy, Unknown, HIVES, 01/08/17) Olmesartan (Verified Allergy, Unknown, HIVES, 01/08/17) Pregabalin (Verified Allergy, Unknown, HIVES, 01/08/17) Sulfa Antibiotics (Verified Allergy, Unknown, HIVES, 12/07/15) Tramadol (Verified Allergy, Unknown, HIVES, 12/07/15) Home Medications Scheduled Acetaminophen (Tylenol), 500 MG PO Q6 Amlodipine (Norvasc), 10 MG PO DAILY Ascorbic Acid (Vitamin C), 1,000 MG PO DAILY Aspirin (Aspirin Ec), 81 MG PO QAM Cholecalciferol (Vitamin D), 2,000 UNITS PO QAM Citalopram Hydrobromide (Celexa), 20 MG PO HS Cranberry (Vaccinium Macrocarp (Cranberry), 1 CAP PO BID Cyanocobalamin (Vitamin B-12), 2,000 MCG PO DAILY Docusate Sodium (Dok), 100 MG PO BID Famotidine (Pepcid), 20 MG PO BID Fish Oil ([place]-3), 1,000 MG PO DAILY Hydralazine Hcl (Apresoline), 20 MG PO TID Ipratropium [place] (Ipratropium [place]), 1 VIAL NEB QID Irbesartan (Avapro), 300 MG PO DAILY Melatonin-Pyridoxine (Melatonin), 3 MG PO HS Metoprolol Succ (Toprol Xl) (Toprol-Xl), 50 MG PO DAILY Multiple Vitamin (Daily [place]encia), 1 TAB PO DAILY Oxycodone Hcl (Oxycodone Hcl), 1 CAP PO QID Pentoxifylline (Pentoxifylline ER), 400 MG PO BID Spironolactone (Aldactone), 25 MG PO QAM Timolol Maleate (Ophth) (Timoptic 0.25% Oph), 1 DROP OP AMPM Torsemide (Demadex), 20 MG PO DAILY Umeclidinium-Vilanterol (Anoro Ellipta 62.5-25 Mcg/INH), 1 PUFF INH DAILY Scheduled PRN Bisacodyl (Bisac-Evac), 10 MG RE DAILY PRN for Constipation Diazepam (Valium), 5 MG PO QID PRN for Anxiety Diphenhydramine Hcl (Benadryl Allergy), 25 MG PO Q6 PRN for Itching Hydrocortisone (Topical) (Hydrocortisone), 1 APPLN TOP BID PRN for Itching Magnesium Hydroxide (Milk Of Magnesia), 30 ML PO DAILY PRN for Constipation Oxycodone Ir (Roxicodone Ir), 1-2 TAB PO Q4H PRN for Severe Pain Physical Exam Vital Signs Date Time Temp Pulse Resp B/P Pulse Ox O2 Delivery O2 Flow Rate FiO2 02/20/17 21:05 85 20 97 02/20/17 21:00 149/60 02/20/17 20:35 91 25 96 02/20/17 20:31 146/64 02/20/17 20:00 123/52 97 Nasal Cannula 2.0 02/20/17 19:40 88 27 91 02/20/17 19:35 88 22 123/52 94 Nasal Cannula 2.0 02/20/17 19:34 88 Room Air 02/20/17 19:30 175/71 02/20/17 19:10 75 27 100 Nebulizer 02/20/17 19:00 173/65 02/20/17 18:46 68 02/20/17 18:40 68 24 100 Nebulizer 02/20/17 18:30 182/73 02/20/17 18:23 89 Room Air 02/20/17 18:23 98 Nasal Cannula 2.0 02/20/17 18:23 36.8 67 26 173/58 100 Nasal Cannula 2.0 02/20/17 18:23 89 Room Air Diagnostics Laboratory Results Results Past 24 Hours Test 02/20/17 18:50 Range/Units White Blood Count 9.91 4.8-10.8 K/uL Red Blood Count 3.51 4.2-5.4 M/uL Hemoglobin 10.6 12.0-16.0 g/dL Hematocrit 32.3 37-47 % Mean Corpuscular Volume 92.0 80-100 fL Mean Corpuscular Hemoglobin 30.2 25-34 pg Mean Corpuscular Hemoglobin Concent 32.8 32-36 g/dl Platelet Count 490 130-400 K/uL Mean Platelet Volume 9.1 7.4-10.4 fL Neutrophils (%) (Auto) 77.1 % Lymphocytes (%) (Auto) 9.9 % Monocytes (%) (Auto) 10.3 % Eosinophils (%) (Auto) 1.7 % Basophils (%) (Auto) 0.6 % Neutrophils # (Auto) 7.64 1.4-6.5 K/uL Lymphocytes # (Auto) 0.98 1.2-3.4 K/uL Monocytes # (Auto) 1.02 0.11-0.59 K/uL Eosinophils # (Auto) 0.17 0-0.5 K/uL Basophils # (Auto) 0.06 0-0.2 K/uL RDW Standard Deviation 61.4 36.4-46.3 fL RDW Coefficient of Variation 18.1 11.5-14.5 % Immature Granulocyte % (Auto) 0.4 % Immature Granulocyte # (Auto) 0.04 0.00-0.02 K/uL Sodium Level 140 136-145 mmol/L Potassium Level 3.5 3.5-5.1 mmol/L Chloride Level 105 98-107 mmol/L Carbon Dioxide Level 27 21-32 mmol/L Anion Gap 8.0 3-11 mmol/L Blood Urea Nitrogen 21 7-18 mg/dl Creatinine 0.70 0.60-1.20 mg/dl Est Creatinine Clear Calc Drug Dose 43.6 ml/min Estimated GFR () 91.6 Estimated GFR (Non- 79.0 BUN/Creatinine Ratio 30.0 10-20 Random Glucose 84 70-99 mg/dl Calcium Level 8.2 8.5-10.1 mg/dl Total Bilirubin 0.2 0.2-1 mg/dl Aspartate Amino Transf (AST/SGOT) 17 15-37 U/L Alanine Aminotransferase (ALT/SGPT) 12 12-78 U/L Alkaline Phosphatase 77 45-117 U/L Total Creatine Kinase 45 26-192 U/L Creatine Kinase MB 1.2 0.5-3.6 ng/ml Creatine Kinase MB Ratio 2.7 0-3.0 Troponin I < 0.015 0-0.045 ng/ml Pro-B-Type Natriuretic Peptide 53115 0-1800 pg/ml Total Protein 6.0 6.4-8.2 gm/dl Albumin 2.5 3.4-5.0 gm/dl Globulin 3.5 2.5-4.0 gm/dl Albumin/Globulin Ratio 0.7 0.9-2 Microbiology Results 02/20/17 Blood Culture, Received Pending 02/20/17 Blood Culture, Received Pending Impression Assessment and Plan CT chest 1. No pulmonary emboli identified. 2. Small bilateral pleural effusions with bilateral pleural catheters in place. The effusions have decreased in size since CT of November 20, 2016. 3. Consolidation within the posterior segment of the right upper lobe with scattered additional airspace opacities throughout the lungs which favor a multifocal pneumonia. 4. No change in the 2.1 cm spiculated left upper lobe nodule suggestive of primary bronchogenic carcinoma. 5. Moderate to severe emphysema. 6. Moderate cardiomegaly and extensive coronary artery calcification.
[2017-02-20] MEDS ORDERED: LEVALBUTEROL 1.25MG/0.5ML NEB INH PRN (22:00)
[2017-02-20] MEDS ORDERED: MoRPHine SULFATE 2 MG/ML CARP IV PRN (22:00)
[2017-02-20] MEDS ORDERED: BISACODYL 10 MG SUPP PR PRN (22:00)
[2017-02-20] MEDS ORDERED: MAGNESIUM HYDROXIDE SUSP 30 ML UDC PO PRN (22:00)
[2017-02-20 22:10] LABS: URINE APPEARANCE TURBID (CLEAR); URINE BILIRUBIN NEG (NEG); URINE COLOR YELLOW; URINE EPITHELIAL CELL AUTO 20-30 /lpf (0-5); URINE NITRITE NEG (NEG); URINE SPECIFIC GRAVITY 1.027 (1.000-1.030); UROBILINOGEN NEG (NEG)
[2017-02-20 22:11] LABS: MANUAL MICROSCOPIC REQUIRED? NO; REVIEW REQ? NO
[2017-02-20] MEDS ORDERED: VANCOMYCIN INJ 1,250 MG in SODIUM CHLORIDE 0.9% 250ML 250 ML IV STA (22:27)
[2017-02-20] MEDS ORDERED: VANCOMYCIN CONSULT ACTIVE PRN (22:30)
[2017-02-20] MEDS ORDERED: PIPERACILL/TAZOBAC CONSULT ACTIVE PRN (22:45)
--- NOTE | 2017-02-20 22:45 | History and Physical ---
History & Physical Date & Time of Service: Feb 20, 2017 at 22:34 Chief Complaint: SOB Primary Care Physician: Vivek Mayer M.D. History of Present Illness Source: patient 86 y/o F w/Hx non-small cell lung CA, recurrent pleural effusions w/B/L Pleurex cath placement 10/23, CHF, COPD. C/O of progressive SOB over past 1-2 days in addition to b/l CP exacerbated with inspiration. She did not have a reported fever and does not describe a productive cough. She resides in a NH and it was reported that more fluid than usual was drained from her catheters over the past 2 days - totalling 450cc from each lung. She has a history of recurrent UTIs - recently with pansensitive Klebsiella - and is being treated with Cefuroxime. A CTA was obtained in the ER which revealed B/L opacities consistent with acute PNM. Past Medical/Surgical History Medical Problems: (1) GI bleed Status: Resolved (2) Lung cancer Status: Chronic - L upper lobe mass - identified as NSCLCA - has not sought treatment (3) Pleural effusion Status: Chronic 4) CHF - no echo on record 5) Anxity/depression 6) Chronic UTIs 7) Gout 8) COPD - 02-dependent Family History reviewed - noncontributory Social History Quit smoking 30 years prior Smoking Status: Former Smoker Drug Use: none Marital Status: Housing status: lives alone Occupational Status: retired Immunizations History of Influenza Vaccine: Unknown Allergies Coded Allergies: Levofloxacin (Verified Allergy, Unknown, HIVES, 01/08/17) Losartan (Verified Allergy, Unknown, HIVES, 01/08/17) Olmesartan (Verified Allergy, Unknown, HIVES, 01/08/17) Pregabalin (Verified Allergy, Unknown, HIVES, 01/08/17) Sulfa Antibiotics (Verified Allergy, Unknown, HIVES, 12/07/15) Tramadol (Verified Allergy, Unknown, HIVES, 12/07/15) Home Medications Scheduled Acetaminophen (Tylenol), 500 MG PO Q6 Amlodipine (Norvasc), 10 MG PO DAILY Ascorbic Acid (Vitamin C), 1,000 MG PO DAILY Aspirin (Aspirin Ec), 81 MG PO QAM Cholecalciferol (Vitamin D), 2,000 UNITS PO QAM Citalopram Hydrobromide (Celexa), 20 MG PO HS Cranberry (Vaccinium Macrocarp (Cranberry), 1 CAP PO BID Cyanocobalamin (Vitamin B-12), 2,000 MCG PO DAILY Docusate Sodium (Dok), 100 MG PO BID Famotidine (Pepcid), 20 MG PO BID Fish Oil ([place]-3), 1,000 MG PO DAILY Hydralazine Hcl (Apresoline), 20 MG PO TID Ipratropium [place] (Ipratropium [place]), 1 VIAL NEB QID Irbesartan (Avapro), 300 MG PO DAILY Melatonin-Pyridoxine (Melatonin), 3 MG PO HS Metoprolol Succ (Toprol Xl) (Toprol-Xl), 50 MG PO DAILY Multiple Vitamin (Daily Hortencia), 1 TAB PO DAILY Oxycodone Hcl (Oxycodone Hcl), 1 CAP PO QID Pentoxifylline (Pentoxifylline ER), 400 MG PO BID Spironolactone (Aldactone), 25 MG PO QAM Timolol Maleate (Ophth) (Timoptic 0.25% Oph), 1 DROP OP AMPM Torsemide (Demadex), 20 MG PO DAILY Umeclidinium-Vilanterol (Anoro Ellipta 62.5-25 Mcg/INH), 1 PUFF INH DAILY Scheduled PRN Bisacodyl (Bisac-Evac), 10 MG RE DAILY PRN for Constipation Diazepam (Valium), 5 MG PO QID PRN for Anxiety Diphenhydramine Hcl (Benadryl Allergy), 25 MG PO Q6 PRN for Itching Hydrocortisone (Topical) (Hydrocortisone), 1 APPLN TOP BID PRN for Itching Magnesium Hydroxide (Milk Of Magnesia), 30 ML PO DAILY PRN for Constipation Oxycodone Ir (Roxicodone Ir), 1-2 TAB PO Q4H PRN for Severe Pain Review of Systems Constitutional: No chills, No fever, No sweats Eyes: No eye pain, No worsening of vision ENT: No hearing loss, No nasal symptoms, No unusual epistaxis Respiratory: + dyspnea at rest, + dyspnea on exertion, + shortness of breath, No cough, No sputum Cardiovascular: + chest pain, + edema, No PND, No claudication, No orthopnea Abdomen: No nausea, No pain, No vomiting Musculoskeletal: No joint pain Genitourinary - Female: + urinary frequency, No dysuria, No urinary incontinence, No urinary urgency Neurologic: + weakness, No memory loss, No paralysis Psychiatric: + anhedonism, + anxiety, + depression symptoms Endocrine: + fatigue, No excessive thirst Hematologic / Lymphatic: No abnormal bleeding/bruising Integumentary: No itch, No rash Allergic / Immunologic: No environmental allergies Physical Exam Vital Signs Date Time Temp Pulse Resp B/P Pulse Ox O2 Delivery O2 Flow Rate FiO2 02/20/17 22:25 36.8 83 24 120/98 99 02/20/17 21:40 83 24 99 02/20/17 21:30 120/98 02/20/17 21:10 90 32 98 02/20/17 21:05 85 20 97 02/20/17 21:00 149/60 02/20/17 20:35 91 25 96 02/20/17 20:31 146/64 02/20/17 20:00 123/52 97 Nasal Cannula 2.0 02/20/17 19:40 88 27 91 02/20/17 19:35 88 22 123/52 94 Nasal Cannula 2.0 02/20/17 19:34 88 Room Air 02/20/17 19:30 175/71 02/20/17 19:10 75 27 100 Nebulizer 02/20/17 19:00 173/65 02/20/17 18:46 68 02/20/17 18:40 68 24 100 Nebulizer 02/20/17 18:30 182/73 02/20/17 18:23 89 Room Air 02/20/17 18:23 98 Nasal Cannula 2.0 02/20/17 18:23 36.8 67 26 173/58 100 Nasal Cannula 2.0 02/20/17 18:23 89 Room Air General Appearance: WD/WN, no apparent distress Head: normocephalic, atraumatic Eyes: normal inspection, EOMI ENT: normal ENT inspection, pharynx normal Neck: supple, no JVD Respiratory/Chest: + decreased breath sounds, + pertinent finding (No air entry at bases - no audible wheezing) Cardiovascular: regular rate, rhythm, no gallop, no JVD, no murmur, + pertinent finding (Cath sites do not reveal any induration) Abdomen/GI: normal bowel sounds, non tender, soft Back: normal inspection, no CVA tenderness Extremities/Musculoskelatal: normal inspection, no calf tenderness, normal capillary refill, + pedal edema 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: 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 II-XII nml as tested, no motor/sensory deficits, alert, normal mood/affect, normal reflexes, oriented x 3 Skin: normal color, warm/dry, no rash Diagnostics Laboratory Results Results Past 24 Hours Test 02/20/17 18:50 02/20/17 21:56 Range/Units White Blood Count 9.91 4.8-10.8 K/uL Red Blood Count 3.51 4.2-5.4 M/uL Hemoglobin 10.6 12.0-16.0 g/dL Hematocrit 32.3 37-47 % Mean Corpuscular Volume 92.0 80-100 fL Mean Corpuscular Hemoglobin 30.2 25-34 pg Mean Corpuscular Hemoglobin Concent 32.8 32-36 g/dl Platelet Count 490 130-400 K/uL Mean Platelet Volume 9.1 7.4-10.4 fL Neutrophils (%) (Auto) 77.1 % Lymphocytes (%) (Auto) 9.9 % Monocytes (%) (Auto) 10.3 % Eosinophils (%) (Auto) 1.7 % Basophils (%) (Auto) 0.6 % Neutrophils # (Auto) 7.64 1.4-6.5 K/uL Lymphocytes # (Auto) 0.98 1.2-3.4 K/uL Monocytes # (Auto) 1.02 0.11-0.59 K/uL Eosinophils # (Auto) 0.17 0-0.5 K/uL Basophils # (Auto) 0.06 0-0.2 K/uL RDW Standard Deviation 61.4 36.4-46.3 fL RDW Coefficient of Variation 18.1 11.5-14.5 % Immature Granulocyte % (Auto) 0.4 % Immature Granulocyte # (Auto) 0.04 0.00-0.02 K/uL Sodium Level 140 136-145 mmol/L Potassium Level 3.5 3.5-5.1 mmol/L Chloride Level 105 98-107 mmol/L Carbon Dioxide Level 27 21-32 mmol/L Anion Gap 8.0 3-11 mmol/L Blood Urea Nitrogen 21 7-18 mg/dl Creatinine 0.70 0.60-1.20 mg/dl Est Creatinine Clear Calc Drug Dose 43.6 ml/min Estimated GFR () 91.6 Estimated GFR (Non- 79.0 BUN/Creatinine Ratio 30.0 10-20 Random Glucose 84 70-99 mg/dl Calcium Level 8.2 8.5-10.1 mg/dl Total Bilirubin 0.2 0.2-1 mg/dl Aspartate Amino Transf (AST/SGOT) 17 15-37 U/L Alanine Aminotransferase (ALT/SGPT) 12 12-78 U/L Alkaline Phosphatase 77 45-117 U/L Total Creatine Kinase 45 26-192 U/L Creatine Kinase MB 1.2 0.5-3.6 ng/ml Creatine Kinase MB Ratio 2.7 0-3.0 Troponin I < 0.015 0-0.045 ng/ml Pro-B-Type Natriuretic Peptide 79057 0-1800 pg/ml Total Protein 6.0 6.4-8.2 gm/dl Albumin 2.5 3.4-5.0 gm/dl Globulin 3.5 2.5-4.0 gm/dl Albumin/Globulin Ratio 0.7 0.9-2 Urine Color YELLOW Urine Appearance TURBID CLEAR Urine pH 6.0 4.5-7.5 Urine Specific [place] 1.027 1.000-1.030 Urine Protein NEG NEG Urine Glucose (UA) NEG NEG Urine Ketones NEG NEG Urine Occult Blood 1+ NEG Urine Nitrite NEG NEG Urine Bilirubin NEG NEG Urine Urobilinogen NEG NEG Urine Leukocyte Esterase LARGE NEG Urine WBC (Auto) >30 0-5 /hpf Urine RBC (Auto) 5-10 0-4 /hpf Urine Hyaline Casts (Auto) 1-5 0-5 /lpf Urine Epithelial Cells (Auto) 20-30 0-5 /lpf Urine Bacteria (Auto) 4+ NEG Microbiology Results 02/20/17 Blood Culture, Received Pending 02/20/17 Blood Culture, Received Pending Diagnostic Radiology IMPRESSION: 1. No pulmonary emboli identified. 2. Small bilateral pleural effusions with bilateral pleural catheters in place. The effusions have decreased in size since CT of November 20, 2016. 3. Consolidation within the posterior segment of the right upper lobe with scattered additional airspace opacities throughout the lungs which favor a multifocal pneumonia. 4. No change in the 2.1 cm spiculated left upper lobe nodule suggestive of primary bronchogenic carcinoma. 5. Moderate to severe emphysema. 6. Moderate cardiomegaly and extensive coronary artery calcification. Impression Assessment and Plan 86 y/o F w/Hx non-small cell lung CA, recurrent pleural effusions w/B/L Pleurex cath placement 10/23. C/O of progressive SOB over past 1-2 days in addition to b/l CP exacerbated with inspiration. She did not have a reported fever and does not describe a productive cough. She resides in a NH and it was reported that more fluid than usual was drained from her catheters over the past 2 days - totalling 450cc from each lung. She has a history of recurrent UTIs - recently with pansensitive Klebsiella - and is being treated with Cefuroxime. A CTA was obtained in the ER which revealed B/L opacities consistent with acute PNM. 1) SOB/hypoxia - she has several contributing factors including COPD, chronic effusions, ling CA and reported CHF. It appears however that she may have developed b/l PNM in a longterm with recent Cefuroxime treatment. We will consider this as HCAP pending culture results and will culture the pleural fluid as well. She has been placed on Vanc, Zosyn, Zithro, an 02 protocol and scheduled neb treatments. Narcotics are provided for her pleuritic CP. Alternative diagnosis should be entertained if there is no short-term response to treatment as her presentation is fairly atypical. 2) LUNG CA with recurrent effusions - CHF may be contributing - has not pursued treatment - Pleurex caths will be drained daily in hospital - We will continue her diuretics and consider an increase if she does not respond to treatment for pneumonia - she did not have venous distention or clear signs of overload at the time of admission. 3) COPD - 02 protocol - no evidence of bronchospasm but would have low threshold for steroid therapy as this may palliate her regardless. 4) Chronic UTI - recent micro + for Klebsiella Oxycota - largely pansensitive and would be covered by provided antibiotics. DNR - Heparin prophylaxis Total time for this admit including review of extensive records, labs, imaging - discussion with pt and ER attending - 45 min Level of Care Telemetry Resuscitation Status DO NOT RESUSCITATE VTE Prophylaxis VTE Risk Assessment Done? Y/N: Yes Risk Level: High Given or contraindicated: Unfractionated heparin SQ
[2017-02-20] MEDS ORDERED: MoRPHine SULFATE 4 MG/ML 1 ML CARP\\VIAL IV PRN (23:15)
[2017-02-20] MEDS ORDERED: POTASSIUM CHLORIDE PWD 20 MEQ PACK PO ONE (23:45)
[2017-02-20 23:49] VITALS: BP 180/69; PULSE 74; TEMP 36.9; O2SAT 99; Ht 172.7 cm; Wt 41.0 kg
[2017-02-21] VITALS (8 sets, daily range): BP systolic 113–169; BP diastolic 55–71; PULSE 65–80; TEMP 36.5–36.8; O2SAT 95–100
[2017-02-21] MEDS: DIAZEPAM 5MG TAB PO PRN ×2 (00:16→21:45)
[2017-02-21] MEDS: PIPERACILL/TAZOBAC IV 3.375 GM in DEXTROSE 5% 100ML 100 ML IV SCH ×3 (03:53→18:14)
[2017-02-21] MEDS: OXYCODONE HCL IR 5 MG TAB (IMMEDIATE RELEASE) PO PRN ×4 (04:04→21:45)
--- NOTE | 2017-02-21 05:32 | Pharmacy Progress Note ---
Pharmacy Antibiotic Consult Date of Service: Feb 21, 2017. Pharmacy Dosing Scope Pharmacy is consulted to initiate Vancomycin and Zosyn IV dosing therapy, order appropriate labs and adjust drug dose/frequency. Subjective The patient is a 86 year old female admitted on Feb 20, 2017 at 22:00 with a fever, no productive cough and B/L pleural effusions. She has been diagnosed with L sided lung mass (non small cell lung CA) not being treated. She has B/L Pleurex catheters in place to drain her chronic pleural effusions. It was reported from her SNF that the drainage has increased today. In addition she is being treated for duke sensitive UTI (Klebsiella) with Cefuroxime. Today she presents with most likely PNX (HCAP) that Dr. Mejia is treating with broad spectrum antibiotics. I did order a MRSA nasal swab for the morning. Objective Height (Feet): 5 Height (Inches): 8.00 Weight (Kilograms): 44.000 Lab Results (24hrs): Laboratory Tests Test 02/20/17 18:50 02/21/17 04:44 BUN/Creatinine Ratio 30.0 Blood Urea Nitrogen 21 mg/dl Creatinine 0.70 mg/dl White Blood Count 9.91 K/uL Red Blood Count 3.51 M/uL Hemoglobin 10.6 g/dL Hematocrit 32.3 % Mean Corpuscular Volume 92.0 fL Mean Corpuscular Hemoglobin 30.2 pg Mean Corpuscular Hemoglobin Concent 32.8 g/dl Platelet Count 490 K/uL Mean Platelet Volume 9.1 fL Neutrophils (%) (Auto) 77.1 % Lymphocytes (%) (Auto) 9.9 % Monocytes (%) (Auto) 10.3 % Eosinophils (%) (Auto) 1.7 % Basophils (%) (Auto) 0.6 % Neutrophils # (Auto) 7.64 K/uL Lymphocytes # (Auto) 0.98 K/uL Monocytes # (Auto) 1.02 K/uL Eosinophils # (Auto) 0.17 K/uL Basophils # (Auto) 0.06 K/uL Micro Results: Item Value Date Time Blood Culture Received 02/20/172125 Blood Pending Blood Culture Received 02/20/172121 Blood Pending Recent Pertinent Medications Item Value Date Time Azithromycin 500 255 ml @ 125 mls/hr 02/21/17 2200 mg/Dextrose Q24H/IV Piperacillin Sod/ 115 ml @ 28.75 mls/hr 02/21/17 0200 Tazobactam Sod Q8H/IV 02/21/17 0353 3.375 gm/Dextrose Assessment & Plan Loading dose: Vancomycin 1250 mg (~26mg/kg) IV X 1 dose then: Vancomycin 750mg (~17mg/kg) every 18 hours. I estimated her half life around 17 hours. I will check a trough level prior to 0600 dose on 02/23/17. Goal trough level estimate: between 15-20 mcg/mL. Pharmacy will continue to follow and will adjust dose/frequency as necessary. Thank you
[2017-02-21 06:36] LABS: HEMATOCRIT 30.8 % (37-47); MEAN CELL VOLUME 92.8 fL (80-100); MEAN CORPUSCULAR HEMOGLOBIN 30.1 pg (25-34); MEAN CORPUSCULAR HGB CONC 32.5 g/dl (32-36); MEAN PLATELET VOLUME 8.9 fL (7.4-10.4); PLATELET COUNT 465 K/uL (130-400); RED BLOOD COUNT 3.32 M/uL (4.2-5.4); WHITE BLOOD COUNT 9.96 K/uL (4.8-10.8)
[2017-02-21 06:43] LABS: PROTHROMBIN TIME (PATIENT) 10.7 SECONDS (9.0-12.0)
[2017-02-21] MEDS: IPRATROPIUM BROMIDE NEB SOLN 0.02% 2.5 ML VIAL INH SCH ×4 (06:56→19:24)
[2017-02-21] MEDS: HEPARIN SOD 5000 UNIT/0.5 ML CARP SQ SCH ×3 (07:10→21:35)
[2017-02-21 07:11] LABS: BUN/CREATININE RATIO 25.6 (10-20); CALCIUM 8.8 mg/dl (8.5-10.1); CREATININE 0.86 mg/dl (0.60-1.20); MAGNESIUM 1.9 mg/dl (1.8-2.4); POTASSIUM 4.2 mmol/L (3.5-5.1)
[2017-02-21] MEDS: ANORO ELLIPTA~ORDER AWAITING ACTION SCH ×2 (08:00→16:00)
[2017-02-21] MEDS: FAMOTIDINE 20 MG TAB PO SCH ×2 (08:10→21:36)
[2017-02-21] MEDS: PENTOXIFYLLINE 400MG EXT REL TAB PO SCH ×2 (08:11→21:34)
[2017-02-21] MEDS: SPIRONOLACTONE 25 MG TAB PO SCH (08:11)
[2017-02-21] MEDS: TORSEMIDE 20 MG TAB PO SCH (08:11)
[2017-02-21] MEDS: CHOLECALCIFEROL 1000 INTER.UNIT TAB PO SCH (08:12)
[2017-02-21] MEDS: DOCUSATE SODIUM 100 MG CAP PO SCH ×2 (08:12→21:34)
[2017-02-21] MEDS: IRBESARTAN 150 MG TAB PO SCH (08:12)
[2017-02-21] MEDS: ASPIRIN 81 MG ECTAB PO SCH (08:12)
[2017-02-21] MEDS: AMLODIPINE BESYLATE 5 MG TAB PO SCH (08:13)
[2017-02-21] MEDS: OMEGA-3 (PURIFIED FISH OIL) 1 GM CAP PO SCH (08:13)
[2017-02-21] MEDS: METOPROLOL SUCC 50MG EXT REL TAB PO SCH (08:13)
[2017-02-21] MEDS: CYANOCOBALAMIN 500 MCG TAB (VIT B-12) PO SCH (08:14)
[2017-02-21] MEDS: HydrALAZINE 10 MG TAB PO SCH ×3 (08:14→21:34)
--- NOTE | 2017-02-21 10:52 | Progress Note ---
Subjective Date of Service: Feb 21, 2017. Subjective Pt evaluation today including: conversation w/ patient, physical exam, chart review, review of studies, conversation w/ continuous improvement consultant, review of inpatient medication list Doing good, difficulty breathing is better, no more abdominal pain, eating good has no voiding problem or problem of constipation Problem List Medical Problems: (1) Dyspnea Status: Acute (2) Hypoxia Status: Acute (3) Pulmonary edema Status: Acute Review of Systems Constitutional: + fatigue, No chills, No fever, No problem reported, No sweats , No weakness, No weight loss Eyes: No diplopia, No discharge, No eye pain, No redness, No worsening of vision ENT: No dental problems, No hearing loss, No nasal symptoms, No sore throat, No tinnitus, No trouble swallowing, No unusual epistaxis Respiratory: + shortness of breath, No cough, No dyspnea at rest, No dyspnea on exertion, No hemoptysis, No sputum, No wheezing Cardiac: No PND, No chest pain, No claudication, No edema, No orthopnea, No palpitations Abdomen: No constipation, No diarrhea, No nausea, No pain, No vomiting Musculoskeletal: No calf pain, No joint pain, No muscle pain, No swelling Female : No abnormal vaginal bleeding, No dysuria, No hematuria, No incontinence, No urinary frequency, No vaginal discharge Neurologic: No balance problems, No memory loss, No numbness/tingling, No paralysis, No vertigo, No weakness Psychiatric: No anhedonism, No anxiety, No depression symptoms, No insomnia, No substance abuse Heme: No abnormal bleeding/bruising, No clotting problems, No night sweats, No swollen lymph nodes Endo: No excessive thirst, No excessive urination, No fatigue Skin: No bleeding, No color change, No itch, No new/changing skin lesions, No rash Objective Vital Signs Date Time Temp Pulse Resp B/P Pulse Ox O2 Delivery O2 Flow Rate FiO2 02/21/17 08:00 Nasal Cannula 2.0 02/21/17 07:35 36.8 75 18 152/71 95 02/21/17 06:57 77 16 96 Nasal Cannula 2.0 02/21/17 04:00 Nasal Cannula 2.0 02/21/17 03:45 36.6 70 22 169/67 100 Room Air 02/20/17 23:59 Nasal Cannula 2.0 02/20/17 23:49 36.9 74 24 180/69 99 Nasal Cannula 2.0 02/20/17 22:25 36.8 83 24 120/98 99 02/20/17 21:40 83 24 99 02/20/17 21:30 120/98 02/20/17 21:10 90 32 98 02/20/17 21:05 85 20 97 02/20/17 21:00 149/60 02/20/17 20:35 91 25 96 02/20/17 20:31 146/64 02/20/17 20:00 123/52 97 Nasal Cannula 2.0 02/20/17 19:40 88 27 91 02/20/17 19:35 88 22 123/52 94 Nasal Cannula 2.0 02/20/17 19:34 88 Room Air 02/20/17 19:30 175/71 02/20/17 19:10 75 27 100 Nebulizer 02/20/17 19:00 173/65 02/20/17 18:46 68 02/20/17 18:40 68 24 100 Nebulizer 02/20/17 18:30 182/73 02/20/17 18:23 89 Room Air 02/20/17 18:23 98 Nasal Cannula 2.0 02/20/17 18:23 36.8 67 26 173/58 100 Nasal Cannula 2.0 02/20/17 18:23 89 Room Air Physical Exam General Appearance: WD/WN, no apparent distress, + thin, + pertinent finding ( frail and chronically ill-looking) Eyes: normal inspection, PERRL, EOMI, sclerae normal ENT: normal ENT inspection, hearing grossly normal, pharynx normal Neck: supple, no adenopathy, thyroid normal, no JVD, no carotid bruits, trachea midline Respiratory/Chest: chest non-tender, normal breath sounds, no respiratory distress, no accessory muscle use, + decreased breath sounds Cardiovascular: regular rate, rhythm, no edema, no gallop, no JVD, no murmur Abdomen: normal bowel sounds, non tender, soft, no organomegaly, no pulsatile mass Extremities: normal range of motion, non-tender, normal inspection, no pedal edema, no calf tenderness, normal capillary refill, pelvis stable 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iatric: master [place] II-XII nml as tested, no motor/sensory deficits, alert, normal mood/affect, oriented x 3 Skin: normal color, warm/dry, no rash Lymphatic: no adenopathy Laboratory Results Last 24 Hours Test 02/20/17 18:50 02/20/17 21:56 02/21/17 06:13 White Blood Count 9.91 K/uL 9.96 K/uL Red Blood Count 3.51 M/uL 3.32 M/uL Hemoglobin 10.6 g/dL 10.0 g/dL Hematocrit 32.3 % 30.8 % Mean Corpuscular Volume 92.0 fL 92.8 fL Mean Corpuscular Hemoglobin 30.2 pg 30.1 pg Mean Corpuscular Hemoglobin Concent 32.8 g/dl 32.5 g/dl Platelet Count 490 K/uL 465 K/uL Mean Platelet Volume 9.1 fL 8.9 fL Neutrophils (%) (Auto) 77.1 % Lymphocytes (%) (Auto) 9.9 % Monocytes (%) (Auto) 10.3 % Eosinophils (%) (Auto) 1.7 % Basophils (%) (Auto) 0.6 % Neutrophils # (Auto) 7.64 K/uL Lymphocytes # (Auto) 0.98 K/uL Monocytes # (Auto) 1.02 K/uL Eosinophils # (Auto) 0.17 K/uL Basophils # (Auto) 0.06 K/uL RDW Standard Deviation 61.4 fL 62.0 fL RDW Coefficient of Variation 18.1 % 18.0 % Immature Granulocyte % (Auto) 0.4 % Immature Granulocyte # (Auto) 0.04 K/uL Sodium Level 140 mmol/L 138 mmol/L Potassium Level 3.5 mmol/L 4.2 mmol/L Chloride Level 105 mmol/L 100 mmol/L Carbon Dioxide Level 27 mmol/L 31 mmol/L Anion Gap 8.0 mmol/L 7.0 mmol/L Blood Urea Nitrogen 21 mg/dl 22 mg/dl Creatinine 0.70 mg/dl 0.86 mg/dl Est Creatinine Clear Calc Drug Dose 43.6 ml/min 33.2 ml/min Estimated GFR () 91.6 71.4 Estimated GFR (Non- 79.0 61.6 BUN/Creatinine Ratio 30.0 25.6 Random Glucose 84 mg/dl 100 mg/dl Calcium Level 8.2 mg/dl 8.8 mg/dl Total Bilirubin 0.2 mg/dl Aspartate Amino Transf (AST/SGOT) 17 U/L Alanine Aminotransferase (ALT/SGPT) 12 U/L Alkaline Phosphatase 77 U/L Total Creatine Kinase 45 U/L Creatine Kinase MB 1.2 ng/ml Creatine Kinase MB Ratio 2.7 Troponin I < 0.015 ng/ml Pro-B-Type Natriuretic Peptide 13505 pg/ml Total Protein 6.0 gm/dl Albumin 2.5 gm/dl Globulin 3.5 gm/dl Albumin/Globulin Ratio 0.7 Urine Color YELLOW Urine Appearance TURBID Urine pH 6.0 Urine Specific [place] 1.027 Urine Protein NEG Urine Glucose (UA) NEG Urine Ketones NEG Urine Occult Blood 1+ Urine Nitrite NEG Urine Bilirubin NEG Urine Urobilinogen NEG Urine Leukocyte Esterase LARGE Urine WBC (Auto) >30 /hpf Urine RBC (Auto) 5-10 /hpf Urine Hyaline Casts (Auto) 1-5 /lpf Urine Epithelial Cells (Auto) 20-30 /lpf Urine Bacteria (Auto) 4+ Prothrombin Time 10.7 SECONDS Prothromb Time International Ratio 1.0 Magnesium Level 1.9 mg/dl Assessment and Plan 86 y/o F admitted on 02/20/2017 because of progressive SOB over past 1-2 days in addition to b/l chest pain exacerbated with inspiration. w/Hx non-small cell lung CA, recurrent pleural effusions w/B/L Pleurex cath placement 10/2016 Per report, did not have a reported fever and does not describe a productive cough. resides in a NH and it was reported that more fluid than usual was drained from her catheters over the past 2 days - totalling 450cc from each lung. a history of recurrent UTIs - recently with pansensitive Klebsiella - and is being treated with Cefuroxime. A CTA was obtained in the ER upon admission which revealed B/L opacities consistent with acute PNM. Worsening difficult breathing/hypoxia: several contributing factors including COPD, chronic pleural effusions, lung CA and reported CHF. HCAP pending culture results and will culture the pleural fluid as well. Continue Vanc, Zosyn, Zithro, and O2 protocol and scheduled neb treatments. Narcotics are provided for her pleuritic CP. LUNG CA with recurrent effusions, improve her admission palliative care saw the patient, patient did not want to have chemotherapies but okay to consider radiation therapy Pleurex caths will be drained daily in hospital Chest surgeon consultation Chronic CHF without decompensation , did not have venous distention or clear signs of overload at the time of admission. COPD , stable , 02 protocol - no evidence of bronchospasm but would have low threshold for steroid therapy as this may palliate her regardless. Chronic UTI - recent micro + for Klebsiella Oxycota - largely pansensitive and would be covered by provided antibiotics. DNR - Heparin prophylaxis Discussed with patient and nurse, sure have pleural Dex drainage every day in the hospital Continued [facility] stay due to: multiple IV medications needed Discharge planning: home
[2017-02-21] MEDS ORDERED: VANCOMYCIN INJ 750 MG in SODIUM CHLORIDE 0.9% 250ML 250 ML IV SCH (18:00)
[2017-02-21] MEDS ORDERED: VANCOMYCIN INJ 800 MG in SODIUM CHLORIDE 0.9% 250ML 250 ML IV SCH (20:00)
[2017-02-21] MEDS: CITALOPRAM 20 MG TAB PO SCH (21:34)
[2017-02-21] MEDS: TIMOLOL MALEATE 0.25% OP SOLN 5 ML BTL OP SCH (21:36)
[2017-02-21] MEDS ORDERED: AZITHROMYCIN IV 500 MG in DEXTROSE 5% 250ML 250 ML IV SCH (22:00)
[2017-02-22] VITALS (8 sets, daily range): BP systolic 123–161; BP diastolic 59–66; PULSE 70–84; TEMP 36.3–36.7; O2SAT 95–100
[2017-02-22] MEDS: PIPERACILL/TAZOBAC IV 3.375 GM in DEXTROSE 5% 100ML 100 ML IV SCH ×3 (02:35→19:00)
[2017-02-22] MEDS ORDERED: SODIUM CHLORIDE 0.65% NA SOLN 45 ML (OCEAN) ONE (04:36)
[2017-02-22] MEDS ORDERED: SODIUM CHLORIDE 0.65% NA SOLN 45 ML (OCEAN) PRN (05:00)
[2017-02-22] MEDS: HEPARIN SOD 5000 UNIT/0.5 ML CARP SQ SCH ×3 (06:11→21:22)
[2017-02-22] MEDS: IPRATROPIUM BROMIDE NEB SOLN 0.02% 2.5 ML VIAL INH SCH ×4 (07:06→19:30)
[2017-02-22 07:40] LABS: BUN/CREATININE RATIO 21.1 (10-20); CALCIUM 8.3 mg/dl (8.5-10.1); CREATININE 1.3 mg/dl (0.60-1.20); MAGNESIUM 1.9 mg/dl (1.8-2.4); POTASSIUM 4.1 mmol/L (3.5-5.1)
[2017-02-22] MEDS: ANORO ELLIPTA~ORDER AWAITING ACTION SCH ×3 (08:00→16:00)
--- NOTE | 2017-02-22 08:49 | Clinical Documentation Query ---
CLINICAL DOCUMENTATION QUERY 86 year old female who presents to the Emergency Room with complaints of SOB. H&P and daily progress notes are stating HCAP as possible culprit along with underlying cancer. Unfortunately HCAP per CMS alphabetical indexing is still considered simple pneumonia unless suspected organism is named. Query #1/4 In your clinical opinion is this patient being managed for: ( ) Presumed Staphylococcal or Gram negative pneumonia in setting of HCAP treated with IV Vanco and Zosyn. ( ) Other explanation of clinical findings (Please Explain) ( x ) Unable to determine (Please Define) Question of PNA, not yet determined ( ) Need to Discuss ( ) Not Agree The medical record reflects the following clinical findings, treatment, and risk factors. Clinical Indicators: HCAP, hypoxia 89%, Treatment: IV Vanco, IV Zosyn, Risk Factors: HCAP, chronic O2 therapy, COPD, Cancer Query #2/4 In your clinical opinion is this patient being managed for: ( ) Chronic respiratory failure in setting of Lung CA, CHF, and COPD requiring O2 ATC. ( ) Other explanation of clinical findings (Please Explain) ( ) Unable to determine (Please Define) ( ) Need to Discuss ( x ) Not Agree Acute respiratory failure The medical record reflects the following clinical findings, treatment, and risk factors. Clinical Indicators: Chronic O2 use Treatment: Continued O2 therapy Risk Factors: Age, COPD, Lung CA, & malignant pleural effusions. Please clarify and document your clinical opinion in the progress notes and discharge summary. Terms such as "probable", "suspected", "likely", "questionable", "possible", or "still to be ruled out" are acceptable. Query #3/4 In your clinical opinion is this patient being managed for: ( x ) VANNESSA in setting of acute illness ( ) Other explanation of clinical findings (Please Explain) ( ) Unable to determine (Please Define) ( ) Need to Discuss ( ) Not Agree The medical record reflects the following clinical findings, treatment, and risk factors. Clinical Indicators: Creatinine bumped up from 0.70 to 1.30. Treatment: daily PRP monitoring, IV antibiotics, Risk Factors: Diuretic therapy, acute illness Query #4/4 In your clinical opinion is this patient being managed for: ( ) Chronic diastolic (preserved EF) heart failure ( ) Chronic systolic (reduced EF) heart failure ( ) Other explanation of clinical findings (Please Explain) ( ) Unable to determine (Please Define) ( ) Need to Discuss (x ) Not Agree No ECHO on record, pleural effusions are related to lung ca The medical record reflects the following clinical findings, treatment, and risk factors. Clinical Indicators: H&P and daily Progress notes state chronic CHF. The medical record documentation is now expected to include definitive and explicit description of the patient's heart failure; vague terms such as "heart failure," ventricular dysfunction," and "CHF" may not fully capture the physician's intended level of severity. Treatment: Torsemide, Spironolactone, telemetry, daily weights, I/O's Risk Factors: Age, HTN, Please clarify and document your clinical opinion in the progress notes and discharge summary. Terms such as "probable", "suspected", "likely", "questionable", "possible", or "still to be ruled out" are acceptable. IF IN AGREEMENT, YOU MUST DOCUMENT ABOVE DIAGNOSTIC STATEMENT IN DAILY PROGRESS NOTES AND DISCHARGE SUMMARY. This document is not part of the patient's record. Thank You, Hayden Vasques, RN [phone]
[2017-02-22] MEDS: OXYCODONE HCL IR 5 MG TAB (IMMEDIATE RELEASE) PO PRN ×3 (09:31→21:32)
[2017-02-22] MEDS: ASPIRIN 81 MG ECTAB PO SCH (09:32)
[2017-02-22] MEDS: METOPROLOL SUCC 50MG EXT REL TAB PO SCH (09:32)
[2017-02-22] MEDS: CYANOCOBALAMIN 500 MCG TAB (VIT B-12) PO SCH (09:32)
[2017-02-22] MEDS: CHOLECALCIFEROL 1000 INTER.UNIT TAB PO SCH (09:32)
[2017-02-22] MEDS: OMEGA-3 (PURIFIED FISH OIL) 1 GM CAP PO SCH (09:32)
[2017-02-22] MEDS: PENTOXIFYLLINE 400MG EXT REL TAB PO SCH ×2 (09:32→21:21)
[2017-02-22] MEDS: AMLODIPINE BESYLATE 5 MG TAB PO SCH (09:33)
[2017-02-22] MEDS: FAMOTIDINE 20 MG TAB PO SCH ×2 (09:33→21:21)
[2017-02-22] MEDS: DOCUSATE SODIUM 100 MG CAP PO SCH ×2 (09:33→21:20)
[2017-02-22] MEDS: IRBESARTAN 150 MG TAB PO SCH (09:33)
[2017-02-22] MEDS: TORSEMIDE 20 MG TAB PO SCH (09:34)
[2017-02-22] MEDS: SPIRONOLACTONE 25 MG TAB PO SCH (09:34)
[2017-02-22] MEDS: HydrALAZINE 10 MG TAB PO SCH ×3 (09:34→21:20)
[2017-02-22 10:42] LABS: PLEURAL FLUID APPEARANCE HAZY; PLEURAL FLUID COLOR YELLOW; PLEURAL FLUID MONONUC RELAT 75.7 %; PLEURAL FLUID POLYNUC 24.3 %; PLEURAL FLUID SOURCE LEFT LUNG; PLEURAL FLUID WBC (A) 1460 /uL
[2017-02-22 10:52] LABS: PLEURAL FLUID TOTAL PROTEIN 1.9 g/dl
[2017-02-22 11:29] LABS: BUN/CREATININE RATIO 22.9 (10-20); CALCIUM 8.4 mg/dl (8.5-10.1); CREATININE 1.2 mg/dl (0.60-1.20); POTASSIUM 4.3 mmol/L (3.5-5.1)
--- NOTE | 2017-02-22 12:43 | Progress Note ---
Subjective Date of Service: Feb 22, 2017. Subjective Pt evaluation today including: conversation w/ patient Pt is feeling improved overall. Still SOB, but better than [employer]OULTRY. She is up to a chair right now and states that it was a struggle from a respiratory standpoint moving there. She is situated now and no SOB. No further chest pain. Tolerating PO without issue. Pt denies fever, abd pain, n/v/c/d, LE pain or swelling. ROS as noted above, otherwise neg. Problem List Medical Problems: (1) Dyspnea Status: Acute (2) Hypoxia Status: Acute (3) Pulmonary edema Status: Acute Objective Vital Signs Date Time Temp Pulse Resp B/P Pulse Ox O2 Delivery O2 Flow Rate FiO2 02/22/17 12:05 36.3 75 19 161/66 99 Nasal Cannula 2.0 02/22/17 11:09 79 16 98 Nasal Cannula 2.0 02/22/17 08:00 Nasal Cannula 2.0 02/22/17 07:25 36.5 75 19 160/61 97 Nasal Cannula 2.0 02/22/17 07:06 74 16 96 Nasal Cannula 2.0 02/22/17 04:00 Nasal Cannula 2.0 02/22/17 01:03 Nasal Cannula 2.0 02/21/17 20:00 Nasal Cannula 2.0 02/21/17 18:59 36.6 73 18 113/62 99 2.0 02/21/17 16:00 Nasal Cannula 2.0 02/21/17 15:59 36.5 65 16 114/68 100 Nasal Cannula 2.0 02/21/17 15:15 68 16 98 Nasal Cannula 2.0 Physical Exam General Appearance: no apparent distress, + thin Respiratory/Chest: no respiratory distress, + decreased breath sounds, + pertinent finding (no wheezing) Cardiovascular: regular rate, rhythm, no edema Abdomen: non tender, soft Extremities: non-tender, no pedal edema 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iatric: alert, normal mood/affect Skin: normal color, warm/dry Laboratory Results Last 24 Hours Test 02/22/17 00:00 02/22/17 06:25 02/22/17 08:49 02/22/17 10:45 Pleural Fluid Source LEFT LUNG Pleural Fluid Color YELLOW Pleural Fluid Appearance HAZY Pleural Fluid WBC 1460 /uL Pleural Fluid RBC < 3000 /uL Pleural Fluid Polynuclear WBCs % 24.3 % Pleural Fluid Mononuclear WBCs % 75.7 % Pleural Fluid Total Protein 1.9 g/dl Pleural Fluid LDH 79 IU Pleural Fluid Glucose 111 mg/dl Pleural Fluid Amylase 47 U/L Sodium Level 138 mmol/L 138 mmol/L Potassium Level 4.1 mmol/L 4.3 mmol/L Chloride Level 102 mmol/L 101 mmol/L Carbon Dioxide Level 29 mmol/L 30 mmol/L Anion Gap 7.0 mmol/L 7.0 mmol/L Blood Urea Nitrogen 27 mg/dl 27 mg/dl Creatinine 1.30 mg/dl 1.20 mg/dl Est Creatinine Clear Calc Drug Dose 22.0 ml/min 23.8 ml/min Estimated GFR () 43.3 47.7 Estimated GFR (Non- 37.4 41.2 BUN/Creatinine Ratio 21.1 22.9 Random Glucose 95 mg/dl 100 mg/dl Calcium Level 8.3 mg/dl 8.4 mg/dl Magnesium Level 1.9 mg/dl Pleural Fluid pH 7.52 Assessment and Plan 86 y/o F admitted on 02/20/2017 for progressive SOB in addition to b/l chest pain exacerbated with inspiration. Hx non-small cell lung CA, recurrent pleural effusions, B/L Pleurex cath placement 10/2016 Per report, did not have a reported fever and does not describe a productive cough. resides in a NH and it was reported that more fluid than usual was drained from her catheters over the past 2 days [employer] - totalling 450cc from each lung. a history of recurrent UTIs - recently with pansensitive Klebsiella - and is being treated with Cefuroxime. A CTA was obtained in the ER upon admission which revealed B/L opacities with possible PNA Worsening difficult breathing/hypoxia: several contributing factors including COPD, chronic pleural effusions, lung CA and reported CHF. HCAP pending culture results and will culture the pleural fluid as well. Started on Vanc, Zosyn, Zithro on admission, and O2 protocol and scheduled neb treatments. d/c vanco today given renal function and sx less suspicious for PNA LUNG CA with recurrent effusions, palliative care saw the patient on prior admission. Patient did not want to have chemotherapies but okay to consider radiation therapy if this would be helpful to her. Per report, was not planning for hospice at that time given stable condition Pleurex caths will be drained daily in hospital Chest surgeon consultation ARF: In the setting of acute illness diuretics are at home dosing, possibly related to vanco status vs dehydration d/c vanco and monitor Chronic CHF: Uncertain dx as there is no ECHO on file and effusions are likely related to cancer status COPD , stable , 02 protocol - no evidence of bronchospasm but would have low threshold for steroid therapy as this may palliate her regardless. Chronic UTI - recent micro + for Klebsiella Oxycota - largely pansensitive and would be covered by provided antibiotics. DNR - Heparin prophylaxis Discussed with patient and nurse, daily pleurx Per pt, no home O2 in place, will need set up prior to d/c if warranted. Continued [facility] stay due to: multiple IV medications needed Discharge planning: home
--- NOTE | 2017-02-22 13:56 | SURGICAL CONSULTATION ---
DATE OF CONSULTATION: 02/22/2017 REASON FOR CONSULTATION: Bilateral PleurX catheters. HISTORY OF PRESENT ILLNESS: Melissa Cedeño is a very nice 86-year-old female who I first met with a left upper lobe lesion which was a nonsmall cell lung carcinoma. She also had bilateral pleural effusions. I placed a right PleurX catheter and this is a benign effusion. She did well with that; however, she then developed an effusion on the left and I ended up putting a catheter in for that also. Currently, she has bilateral PleurX catheters. She was going to be treated with stereotactic body radioablative therapy for this left upper lobe lesion which appeared to be relatively confined; however, she was worked up from a cardiac standpoint found to have diffuse disease and was not a candidate for any intervention. For this reason, she elected to proceed with observation alone for this cancer. The patient then fell and broke her left hip. She had that fixed and she has been in a rehab facility since that time. She became much more short of breath and had more pain. I was asked to evaluate her today after she was admitted on February 20 with shortness of breath. She is normally followed by Dr. Vivek Mayer. The patient denied productive cough or fevers. PAST MEDICAL HISTORY: 1. Nonsmall cell lung carcinoma. 2. History of GI bleeding. 3. Bilateral pleural effusions. 4. History of cigarette smoking in the past. 5. Hypertension. SOCIAL HISTORY: The patient smoked in the past. She is currently at an extended care facility. 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 She lived alone before this. Her family is attentive. She does not smoke or drink at this time. She was independent in her activities of daily living. REVIEW OF SYSTEMS: It should be noted that the patient was doing well with therapy and was getting up and moving and walking however, she became suddenly short of breath. She was admitted and CTA was performed of her chest that showed no evidence of pulmonary embolism. I do not really see evidence of pneumonia. She has some compressive atelectasis of the left lung, but this left lower lobe atelectasis is due to her pleural effusion. The symptoms that she describes came on rather quickly. She denies any GI or symptoms. She does have emphysema. She also has cardiomegaly and a decreased LV function with inoperable coronary artery disease. PHYSICAL EXAMINATION: GENERAL: This is a frail, awake, alert, elderly female who wears glasses. HEENT: Her extraocular movements are intact. Pupils are equal, round and reactive. Sclerae are anicteric. NECK: Supple. I detect no neck vein distention. She has no carotid bruits. LUNGS: She has decreased breath sounds, more on the left than the right, but actually moving air well without wheezing. HEART: She has a regular rate and rhythm of her heart. ABDOMEN: Flat, soft, nontender. I feel no evidence of abdominal aortic aneurysm. EXTREMITIES: He has no peripheral edema at all and she has no joint effusions. NEUROLOGIC: She is awake, alert and oriented. ASSESSMENT AND PLAN: Indwelling PleurX catheters. Both these sites are clean. I drained both of these consent and sent the pleural fluid off for a pH and this was 7.5 or more in each which would argue against this being an empyema. We will continue to drain her. I did drain her just for 10-15 mL on the right and about 110 on the left. At this point, I think I would treat indifferently. I may pull out her right PleurX if the drainage does not go up in the next few days.
[2017-02-22] MEDS: TIMOLOL MALEATE 0.25% OP SOLN 5 ML BTL OP SCH (21:19)
[2017-02-22] MEDS: CITALOPRAM 20 MG TAB PO SCH (21:20)
[2017-02-23] VITALS (14 sets, daily range): BP systolic 134–166; BP diastolic 50–68; PULSE 64–76; TEMP 36.5–37.1; O2SAT 94–100
[2017-02-23] MEDS: PIPERACILL/TAZOBAC IV 3.375 GM in DEXTROSE 5% 100ML 100 ML IV SCH ×2 (02:46→09:33)
[2017-02-23] MEDS ORDERED: VANCOMYCIN TROUGH SCH ×2 (05:30→19:30)
[2017-02-23] MEDS: HEPARIN SOD 5000 UNIT/0.5 ML CARP SQ SCH ×3 (05:51→21:11)
[2017-02-23] MEDS: IPRATROPIUM BROMIDE NEB SOLN 0.02% 2.5 ML VIAL INH SCH ×4 (07:05→19:28)
[2017-02-23] MEDS: ANORO ELLIPTA~ORDER AWAITING ACTION SCH ×3 (08:00→15:30)
[2017-02-23] MEDS: SPIRONOLACTONE 25 MG TAB PO SCH (08:20)
[2017-02-23] MEDS: HydrALAZINE 10 MG TAB PO SCH ×3 (08:21→19:44)
[2017-02-23] MEDS: IRBESARTAN 150 MG TAB PO SCH (08:21)
[2017-02-23] MEDS: TORSEMIDE 20 MG TAB PO SCH (08:22)
[2017-02-23] MEDS: DOCUSATE SODIUM 100 MG CAP PO SCH ×2 (08:22→19:43)
[2017-02-23] MEDS: ASPIRIN 81 MG ECTAB PO SCH (08:23)
[2017-02-23] MEDS: AMLODIPINE BESYLATE 5 MG TAB PO SCH (08:23)
[2017-02-23] MEDS: FAMOTIDINE 20 MG TAB PO SCH ×2 (08:24→19:45)
[2017-02-23] MEDS: OMEGA-3 (PURIFIED FISH OIL) 1 GM CAP PO SCH (08:24)
[2017-02-23] MEDS: METOPROLOL SUCC 50MG EXT REL TAB PO SCH (08:24)
[2017-02-23] MEDS: PENTOXIFYLLINE 400MG EXT REL TAB PO SCH ×2 (08:25→19:44)
[2017-02-23] MEDS: CHOLECALCIFEROL 1000 INTER.UNIT TAB PO SCH (08:25)
[2017-02-23] MEDS: CYANOCOBALAMIN 500 MCG TAB (VIT B-12) PO SCH (08:25)
[2017-02-23] MEDS: OXYCODONE HCL IR 5 MG TAB (IMMEDIATE RELEASE) PO PRN ×2 (09:33→19:49)
[2017-02-23] MEDS ORDERED: SENNA 8.6 MG TAB PO ONE (11:21)
--- NOTE | 2017-02-23 11:25 | Progress Note ---
Subjective Date of Service: Feb 23, 2017. Subjective Pt evaluation today including: conversation w/ patient, conversation w/ family Pt still with chest wall pain related to pleur-X sites. SOB is still present, but improved again today. She was OOB to chair earlier and still had some difficulties getting there, but better than yesterday. Tolerated PO without issue. Is concerned that she has not had a bowel movement since Wednesday. She does not have abd pain or feel constipated, but has had "blockages" in the past and would like to avoid this. Has taken MOM and senna prior. Pt denies fever, n/v, LE pain or swelling. ROS as noted above, otherwise neg. Daughter is present and expressed concerns about d/c of pleur-x due to having a difficult time placing it initially. Problem List Medical Problems: (1) Dyspnea Status: Acute (2) Hypoxia Status: Acute (3) Pulmonary edema Status: Acute Objective Vital Signs Date Time Temp Pulse Resp B/P Pulse Ox O2 Delivery O2 Flow Rate FiO2 02/23/17 07:48 36.8 67 18 157/64 97 2.0 02/23/17 07:06 73 16 98 Nasal Cannula 2.0 02/23/17 04:00 Nasal Cannula 2.0 02/23/17 03:42 36.8 67 18 160/67 100 Nasal Cannula 2.0 02/23/17 00:00 36.8 67 18 140/56 100 Nasal Cannula 2.0 02/23/17 00:00 Nasal Cannula 2.0 02/22/17 20:00 Nasal Cannula 2.0 02/22/17 19:51 36.6 70 16 123/59 100 Nasal Cannula 2.0 02/22/17 19:30 74 16 99 Nasal Cannula 2.0 02/22/17 16:41 36.7 73 18 136/64 95 Nasal Cannula 2.0 02/22/17 16:20 84 16 98 Nasal Cannula 2.0 02/22/17 16:00 Nasal Cannula 2.0 02/22/17 12:05 36.3 75 19 161/66 99 Nasal Cannula 2.0 02/22/17 12:00 Nasal Cannula 2.0 Physical Exam Comments: General Appearance: no apparent distress, + thin Respiratory/Chest: no respiratory distress, + decreased breath sounds-- improving, + pertinent finding (no wheezing) Cardiovascular: regular rate, rhythm, no edema Abdomen: non tender, soft Extremities: non-tender, no pedal edema 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iatric: alert, normal mood/affect Skin: normal color, warm/dry Assessment and Plan 86 y/o F admitted on 02/20/2017 for progressive SOB in addition to b/l chest pain exacerbated with inspiration. Hx non-small cell lung CA, recurrent pleural effusions, B/L Pleurex cath placement 10/2016 Per report, did not have a reported fever and does not describe a productive cough. resides in a NH and it was reported that more fluid than usual was drained from her catheters over the past 2 days [employer] - totalling 450cc from each lung. a history of recurrent UTIs - recently with pansensitive Klebsiella - and is being treated with Cefuroxime. A CTA was obtained in the ER upon admission which revealed B/L opacities with possible PNA Worsening difficult breathing/hypoxia: several contributing factors including COPD, chronic pleural effusions, lung CA and reported CHF. HCAP pending culture results and will culture the pleural fluid as well. Started on Vanc, Zosyn, Zithro on admission, and O2 protocol and scheduled neb treatments. No issues s/p d/c vanco 02/22 given renal function and sx less suspicious for PNA D/C zosyn 02/23 and monitor LUNG CA with recurrent effusions, palliative care saw the patient on prior admission. Patient did not want to have chemotherapies but okay to consider radiation therapy if this would be helpful to her. Per report, was not planning for hospice at that time given stable condition Pleurex caths will be drained as per CT surg. Chest surgeon consultation ARF: In the setting of acute illness diuretics are at home dosing, possibly related to vanco status vs dehydration Now WNL off of vanco, monitor Chronic CHF: Uncertain dx as there is no ECHO on file and effusions are likely related to cancer status COPD , stable , 02 protocol - no evidence of bronchospasm but would have low threshold for steroid therapy as this may palliate her regardless. Chronic UTI - recent micro + for Klebsiella Oxycota - largely pansensitive and would be covered by provided antibiotics. DNR - Heparin prophylaxis Daughter present, discussed care. She is concerned about having pleur-x d/c'd due to difficulty having it placed initially. Per pt, no home O2 in place, will need set up prior to d/c if warranted. Continued [facility] stay due to: multiple IV medications needed Discharge planning: home
[2017-02-23] MEDS ORDERED: MAGNESIUM HYDROXIDE SUSP 30 ML UDC PO ONE (11:30)
--- NOTE | 2017-02-23 15:13 | SURGERY PROGRESS NOTE ---
DATE: 02/23/2017 Ms. Cedeño was seen today. She looks better to me. Her fluid does not appear to be malignant. We drained her yesterday and today and got very little fluid out on the right PleurX catheter. She had some fluid on the right, but really not very much and we are draining very little from her tube. I essentially got no fluid today, just after we drained just enough for a pH. We are going to take a chest x-ray and if the fluid has not increased we are going to pull her right PleurX catheter. Her left is still draining. I drained about 120 mL today. She is better with that. She sounds better on point auscultation. It does not appear we are dealing with a malignancy, we will see.
[2017-02-23] MEDS: CITALOPRAM 20 MG TAB PO SCH (19:42)
[2017-02-23] MEDS: TIMOLOL MALEATE 0.25% OP SOLN 5 ML BTL OP SCH (19:45)
[2017-02-24] VITALS (8 sets, daily range): BP systolic 127–165; BP diastolic 55–75; PULSE 60–76; TEMP 36.5–36.9; O2SAT 95–100
[2017-02-24] MEDS: HEPARIN SOD 5000 UNIT/0.5 ML CARP SQ SCH ×3 (05:59→21:59)
[2017-02-24] MEDS: IPRATROPIUM BROMIDE NEB SOLN 0.02% 2.5 ML VIAL INH SCH ×4 (07:10→19:04)
[2017-02-24 07:23] LABS: HEMATOCRIT 28.8 % (37-47); MEAN CELL VOLUME 94.4 fL (80-100); MEAN CORPUSCULAR HEMOGLOBIN 29.8 pg (25-34); MEAN CORPUSCULAR HGB CONC 31.6 g/dl (32-36); MEAN PLATELET VOLUME 8.9 fL (7.4-10.4); PLATELET COUNT 405 K/uL (130-400); RED BLOOD COUNT 3.05 M/uL (4.2-5.4); WHITE BLOOD COUNT 8.71 K/uL (4.8-10.8)
[2017-02-24] MEDS: ANORO ELLIPTA~ORDER AWAITING ACTION SCH ×2 (07:36→08:00)
[2017-02-24 07:56] LABS: BUN/CREATININE RATIO 26.8 (10-20); CALCIUM 8.6 mg/dl (8.5-10.1); POTASSIUM 3.8 mmol/L (3.5-5.1)
[2017-02-24] MEDS: SPIRONOLACTONE 25 MG TAB PO SCH (08:14)
[2017-02-24] MEDS: HydrALAZINE 10 MG TAB PO SCH ×3 (08:15→20:38)
[2017-02-24] MEDS: DOCUSATE SODIUM 100 MG CAP PO SCH ×2 (08:16→20:39)
[2017-02-24] MEDS: IRBESARTAN 150 MG TAB PO SCH (08:16)
[2017-02-24] MEDS: TORSEMIDE 20 MG TAB PO SCH (08:17)
[2017-02-24] MEDS: ASPIRIN 81 MG ECTAB PO SCH (08:17)
[2017-02-24] MEDS: OMEGA-3 (PURIFIED FISH OIL) 1 GM CAP PO SCH (08:18)
[2017-02-24] MEDS: AMLODIPINE BESYLATE 5 MG TAB PO SCH (08:18)
[2017-02-24] MEDS: PENTOXIFYLLINE 400MG EXT REL TAB PO SCH ×2 (08:18→20:39)
[2017-02-24] MEDS: METOPROLOL SUCC 50MG EXT REL TAB PO SCH (08:18)
[2017-02-24] MEDS: SENNA 8.6 MG TAB PO SCH (08:19)
[2017-02-24] MEDS: CYANOCOBALAMIN 500 MCG TAB (VIT B-12) PO SCH (08:19)
[2017-02-24] MEDS: CHOLECALCIFEROL 1000 INTER.UNIT TAB PO SCH (08:19)
[2017-02-24] MEDS: MAGNESIUM HYDROXIDE SUSP 30 ML UDC PO SCH (08:20)
[2017-02-24] MEDS: OXYCODONE HCL IR 5 MG TAB (IMMEDIATE RELEASE) PO PRN ×3 (08:34→20:37)
[2017-02-24] MEDS: FAMOTIDINE 20 MG TAB PO SCH ×2 (09:18→20:39)
--- NOTE | 2017-02-24 10:42 | Progress Note ---
Subjective Date of Service: Feb 24, 2017. Subjective Pt evaluation today including: conversation w/ patient Pt is still SOB, but does continue to feel improved. She was OOB this AM, but still struggled with the transfer with assistance from a breathing standpoint. Ongoing chest pain that is related to her b/l pleur-x tubes. Tolerating PO without an issue. Pt denies fever, abd pain, n/v/c/d, LE pain or swelling. ROS as noted above, otherwise neg. Nursing noted an abnormal rhythm strip this AM and ordered a stat EKG. It was noted that her leads weren't fixed properly and resulting EKG has been reported as WNL. Problem List Medical Problems: (1) Dyspnea Status: Acute (2) Hypoxia Status: Acute (3) Pulmonary edema Status: Acute Objective Vital Signs Date Time Temp Pulse Resp B/P Pulse Ox O2 Delivery O2 Flow Rate FiO2 02/24/17 08:59 36.7 76 16 158/69 95 02/24/17 07:30 69 16 96 Nasal Cannula 2.0 02/24/17 04:00 Nasal Cannula 2.0 Humidified Oxygen 02/24/17 03:36 36.8 73 18 165/64 95 Nasal Cannula 2.0 02/24/17 00:01 Nasal Cannula 2.0 Humidified Oxygen 02/23/17 23:41 37.1 68 17 166/68 100 Nasal Cannula 2.0 02/23/17 20:00 Nasal Cannula 2.0 Humidified Oxygen 02/23/17 19:32 76 16 98 Nasal Cannula 2.0 02/23/17 19:12 36.5 66 18 155/63 99 Nasal Cannula 2.0 02/23/17 16:00 94 Nasal Cannula 02/23/17 15:46 64 16 98 Nasal Cannula 2.0 02/23/17 15:37 36.6 65 18 134/50 99 2.0 02/23/17 12:00 94 Nasal Cannula 02/23/17 11:40 36.5 68 18 155/61 99 2.0 02/23/17 11:16 67 16 98 Nasal Cannula 2.0 Physical Exam Comments: General Appearance: no apparent distress, + thin Respiratory/Chest: no respiratory distress, + decreased breath sounds-- improving, + pertinent finding (no wheezing) Cardiovascular: regular rate, rhythm, no edema Abdomen: non tender, soft Extremities: non-tender, no pedal edema 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iatric: alert, normal mood/affect Skin: normal color, warm/dry Laboratory Results Last 24 Hours Test 02/24/17 07:01 White Blood Count 8.71 K/uL Red Blood Count 3.05 M/uL Hemoglobin 9.1 g/dL Hematocrit 28.8 % Mean Corpuscular Volume 94.4 fL Mean Corpuscular Hemoglobin 29.8 pg Mean Corpuscular Hemoglobin Concent 31.6 g/dl RDW Standard Deviation 61.3 fL RDW Coefficient of Variation 17.8 % Platelet Count 405 K/uL Mean Platelet Volume 8.9 fL Sodium Level 139 mmol/L Potassium Level 3.8 mmol/L Chloride Level 103 mmol/L Carbon Dioxide Level 30 mmol/L Anion Gap 6.0 mmol/L Blood Urea Nitrogen 27 mg/dl Creatinine 1.00 mg/dl Est Creatinine Clear Calc Drug Dose 28.4 ml/min Estimated GFR () 59.5 Estimated GFR (Non- 51.3 BUN/Creatinine Ratio 26.8 Random Glucose 96 mg/dl Calcium Level 8.6 mg/dl Assessment and Plan 86 y/o F admitted on 02/20/2017 for progressive SOB in addition to b/l chest pain exacerbated with inspiration. Hx non-small cell lung CA, recurrent pleural effusions, B/L Pleurex cath placement 10/2016 Per report, did not have a reported fever and does not describe a productive cough. resides in a NH and it was reported that more fluid than usual was drained from her catheters over the past 2 days [employer] - totalling 450cc from each lung. a history of recurrent UTIs - recently with pansensitive Klebsiella - and is being treated with Cefuroxime. A CTA was obtained in the ER upon admission which revealed B/L opacities with possible PNA Worsening difficult breathing/hypoxia: several contributing factors including COPD, chronic pleural effusions, lung CA and reported CHF. HCAP pending culture results Started on Vanc, Zosyn, Zithro on admission, and O2 protocol and scheduled neb treatments. No issues s/p d/c vanco 02/22 given renal function and sx less suspicious for PNA D/C zosyn 02/23 and has done well with >24 hours off abx LUNG CA with recurrent effusions, palliative care saw the patient on prior admission. Patient did not want to have chemotherapies but okay to consider radiation therapy if this would be helpful to her. Per report, was not planning for hospice at that time given stable condition Pleurex caths will be drained as per CT surg. Chest surgeon consultation Pleural fluid neg for both R and L lungs ARF: In the setting of acute illness diuretics are at home dosing, possibly related to vanco status vs dehydration Remains WNL off of vanco, monitor Chronic CHF: Uncertain dx as there is no ECHO on file and effusions are likely related to cancer status COPD , stable , 02 protocol - no evidence of bronchospasm but would have low threshold for steroid therapy as this may palliate her regardless. Chronic UTI - recent micro + for Klebsiella Oxycota - largely pansensitive and would be covered by provided antibiotics. DNR - Heparin prophylaxis Per pt, no home O2 in place, will need set up prior to d/c if warranted. If no plans for pleur-x d/c, will transfer to floor Continued [facility] stay due to: multiple IV medications needed Discharge planning: home
--- NOTE | 2017-02-24 11:10 | DIAGNOSTIC IMAGING REPORT ---
CHEST 2 VIEWS ROUTINE CLINICAL HISTORY: pleural effusion COMPARISON STUDY: 02/20/2017 FINDINGS: Bibasilar chest tubes are again visualized. There are small bilateral pleural effusions. There is evidence for underlying chronic lung disease. There is a persistent 2 cm left upper lung zone nodule. Somewhat nodular airspace opacities persist within the right upper lung zone.. No pneumothorax is visualized. On the lateral view, there is a small amount of fluid within the major fissure posteriorly.[ IMPRESSION: 1. Persistent bilateral pleural effusions and bilateral pleural catheters 2. Persistent bilateral airspace opacities. 3. Persistent 2 cm left upper lung zone nodule Electronically signed by: Chris Carlos M.D. 02/24/2017 11:07 AM Dictated Date/Time: 02/24/2017 11:05 AM
[2017-02-24] MEDS ORDERED: ALTEPLASE, RECOMBINANT 1 MG/ML 2 ML VIAL IPL ONE (13:15)
[2017-02-24] MEDS ORDERED: DORNASE ALFA (2500U) 2.5MG/2.5ML IPL ONE ×2 (13:45)
--- NOTE | 2017-02-24 13:56 | Progress Note ---
Progress Note Date of Service Feb 24, 2017. Progress Note 10 mg of TPA placed in both pleurex catheters.
[2017-02-24] MEDS: DORNASE ALFA 2.5MG 5 ML in SYRINGE 25 ML IPL SCH ×2 (14:30→14:35)
--- NOTE | 2017-02-24 14:46 | SURGERY PROGRESS NOTE ---
DATE: 02/24/2017 SUBJECTIVE: Ms. Cedeño was seen today. She still has some undrained fluid in her pleural cavities. Even though we drained 150 mL from the right today and about 200 from the left. She still has fluid on the CT scan from a few days ago. We are going to put TPA and dornase in for a day or 2 to see if we can get this to drain. I discussed this with her daughter, Graciela, who is quite concerned about removing the chest tube as the tubes have made her feel some much better from a pulmonary standpoint. MTDLion
[2017-02-24] MEDS: TIMOLOL MALEATE 0.25% OP SOLN 5 ML BTL OP SCH (20:37)
[2017-02-24] MEDS: CITALOPRAM 20 MG TAB PO SCH (20:38)
[2017-02-25] VITALS (11 sets, daily range): BP systolic 151–161; BP diastolic 54–79; PULSE 64–80; TEMP 36.5–37; O2SAT 90–100
[2017-02-25] MEDS: HEPARIN SOD 5000 UNIT/0.5 ML CARP SQ SCH ×3 (05:50→21:08)
[2017-02-25] MEDS ORDERED: ALTEPLASE, RECOMBINANT 1 MG/ML 2 ML VIAL IPL ONE ×2 (06:30→09:45)
[2017-02-25] MEDS: IPRATROPIUM BROMIDE NEB SOLN 0.02% 2.5 ML VIAL INH SCH ×4 (07:04→19:44)
[2017-02-25] MEDS: ANORO ELLIPTA~ORDER AWAITING ACTION SCH ×4 (08:00→23:24)
--- NOTE | 2017-02-25 08:05 | DIAGNOSTIC IMAGING REPORT ---
SINGLE VIEW CHEST CLINICAL HISTORY: Pleural effusions. FINDINGS: An AP, portable, upright chest radiograph is compared to study dated 02/24/2017 and correlated with chest CT dated 02/20/2017. The examination is degraded by portable technique and patient rotation. Pleural catheters are again seen at both lung bases. The heart is enlarged and there is atherosclerotic calcification of the thoracic aorta. The pulmonary vasculature is noncongested. Emphysema and chronic interstitial thickening are similar to previous. Small pleural effusions. These are unchanged from yesterday. Bibasilar consolidation is again noted an typical for atelectasis. Bilateral upper lobe airspace opacities persist. No pneumothorax is seen. The skeletal structures are osteopenic. Degenerative change and S-shaped thoracolumbar scoliosis are noted in the spine. There are compression deformities with evidence of previous vertebroplasty in the lumbar spine. IMPRESSION: 1. Cardiomegaly and severe emphysema. 2. Pleural catheters are again seen at both lung bases. Small pleural effusions persist and are unchanged from yesterday. 3. Upper lobe airspace opacities are again noted. These are better characterized on 02/20/2017 examination. The left upper lobe opacity is consistent with neoplasm. Electronically signed by: Anders Orozco M.D. 02/25/2017 8:03 AM Dictated Date/Time: 02/25/2017 8:00 AM
--- NOTE | 2017-02-25 08:37 | OPERATIVE REPORT ---
DATE OF OPERATION: 02/25/2017 DATE OF PROCEDURE: 02/25/2017. PROCEDURE: Subsequent instillation of tissue plasminogen activator bilateral PleurX catheters. SURGEON: Dr. Blair. SPECIFICS OF THE PROCEDURE: The patient was actually seated up eating breakfast. She was in a chair. I reconstituted 10 mg of tissue plasminogen activator in 60 mL of normal saline and under sterile conditions injected into both PleurX catheters. We will drain her in an hour or so. She tolerated it quite well. I attest to the content of the Intraoperative Record and any orders documented therein. Any exceptio ns are noted below.
[2017-02-25] MEDS: AMLODIPINE BESYLATE 5 MG TAB PO SCH (08:38)
[2017-02-25] MEDS: CHOLECALCIFEROL 1000 INTER.UNIT TAB PO SCH (08:38)
[2017-02-25] MEDS: CYANOCOBALAMIN 500 MCG TAB (VIT B-12) PO SCH (08:38)
[2017-02-25] MEDS: ASPIRIN 81 MG ECTAB PO SCH (08:38)
[2017-02-25] MEDS: HydrALAZINE 10 MG TAB PO SCH ×3 (08:38→20:45)
[2017-02-25] MEDS: PENTOXIFYLLINE 400MG EXT REL TAB PO SCH ×2 (08:39→21:07)
[2017-02-25] MEDS: FAMOTIDINE 20 MG TAB PO SCH ×2 (08:39→20:46)
[2017-02-25] MEDS: DOCUSATE SODIUM 100 MG CAP PO SCH ×2 (08:39→20:46)
[2017-02-25] MEDS: SPIRONOLACTONE 25 MG TAB PO SCH (08:39)
[2017-02-25] MEDS: IRBESARTAN 150 MG TAB PO SCH (08:39)
[2017-02-25] MEDS: TORSEMIDE 20 MG TAB PO SCH (08:39)
[2017-02-25] MEDS: OMEGA-3 (PURIFIED FISH OIL) 1 GM CAP PO SCH (08:39)
[2017-02-25] MEDS: METOPROLOL SUCC 50MG EXT REL TAB PO SCH (08:40)
[2017-02-25] MEDS: SENNA 8.6 MG TAB PO SCH (08:40)
--- NOTE | 2017-02-25 08:40 | SURGERY PROGRESS NOTE ---
DATE: 02/25/2017 Ms. Cedeño was seen today on 02/25/2017. We have been instilling tissue plasminogen activator as well as Dornase into her chest tubes. The drainage has increased. It appears to me that this has improved her lungs. She has been draining from both sides, although really not very much. I am quite happy with her x-ray today which really shows no pleural fluid and she was drained for about 50 mL on the right side and 70 mL on the left side this morning. This is not infected. Overall, I think she looks good with this. I am hopeful that we can keep her well drained and be able to get these tubes out in the future. I would keep them in for the time being.
[2017-02-25] MEDS: MAGNESIUM HYDROXIDE SUSP 30 ML UDC PO SCH (09:00)
[2017-02-25] MEDS ORDERED: NURSING VERBAL MED ORDER ONE (09:15)
[2017-02-25] MEDS: DORNASE ALFA 2.5MG 5 ML in SYRINGE 25 ML IPL SCH ×2 (09:30→09:35)
[2017-02-25] MEDS ORDERED: DORNASE ALFA 2.5MG 5 ML in SYRINGE 25 ML IPL ONE (09:45)
--- NOTE | 2017-02-25 10:59 | Progress Note ---
Subjective Date of Service: Feb 25, 2017. Subjective Pt evaluation today including: conversation w/ patient Pt states she feels much better today. Still SOB with moving to chair, etc but no longer SOB at rest. Ongoing chest pain related to pleur-x. Ongoing improvement in PO intake and appetite. Nursing reports that pt is resistant to moving around the room, to the bathroom , etc. She has tolerated weaning O2 to 1L this AM. Pt denies fever, abd pain, n/v/c/d, LE pain or swelling. ROS as noted above, otherwise neg. Problem List Medical Problems: (1) Dyspnea Status: Acute (2) Hypoxia Status: Acute (3) Pulmonary edema Status: Acute Objective Vital Signs Date Time Temp Pulse Resp B/P Pulse Ox O2 Delivery O2 Flow Rate FiO2 02/25/17 08:00 Nasal Cannula 2.0 02/25/17 07:45 36.9 66 18 158/79 95 Nasal Cannula 2.0 02/25/17 07:04 66 16 99 Nasal Cannula 2.0 02/25/17 04:00 Nasal Cannula 2.0 02/25/17 03:42 36.8 64 17 161/64 100 Nasal Cannula 2.0 02/25/17 00:00 Nasal Cannula 2.0 02/24/17 23:45 36.8 63 17 127/60 98 Nasal Cannula 2.0 02/24/17 20:30 Nasal Cannula 2.0 02/24/17 19:09 36.5 60 16 142/59 100 Nasal Cannula 02/24/17 19:04 66 16 99 Nasal Cannula 2.0 02/24/17 16:00 Nasal Cannula 2.0 02/24/17 15:06 36.8 63 20 134/55 100 Nasal Cannula 2.0 02/24/17 12:00 Nasal Cannula 2.0 02/24/17 11:39 36.9 66 18 160/75 97 Physical Exam Comments: General Appearance: no apparent distress, + thin Respiratory/Chest: no respiratory distress, + decreased breath sounds-- improving, + pertinent finding (no wheezing) Cardiovascular: regular rate, rhythm, no edema Abdomen: non tender, soft Extremities: non-tender, no pedal edema 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iatric: alert, normal mood/affect Skin: normal color, warm/dry Assessment and Plan 86 y/o F admitted on 02/20/2017 for progressive SOB in addition to b/l chest pain exacerbated with inspiration. Hx non-small cell lung CA, recurrent pleural effusions, B/L Pleurex cath placement 10/2016 Per report, did not have a reported fever and does not describe a productive cough. resides in a NH and it was reported that more fluid than usual was drained from her catheters over the past 2 days LE[facility] [employer]URNER - totalling 450cc from each lung. a history of recurrent UTIs - recently with pansensitive Klebsiella - and is being treated with Cefuroxime. A CTA was obtained in the ER upon admission which revealed B/L opacities with possible PNA Worsening difficult breathing/hypoxia: several contributing factors including COPD, chronic pleural effusions, lung CA and reported CHF. HCAP pending culture results Started on Vanc, Zosyn, Zithro on admission, and O2 protocol and scheduled neb treatments. No issues s/p d/c vanco 02/22 given renal function and sx less suspicious for PNA D/C zosyn 02/23 and has done well with >24 hours off abx LUNG CA with recurrent effusions, palliative care saw the patient on prior admission. Patient did not want to have chemotherapies but okay to consider radiation therapy if this would be helpful to her. Per report, was not planning for hospice at that time given stable condition Pleurex caths will be drained as per CT surg. Chest surgeon consultation Pleural fluid neg for both R and L lungs Ongoing O2 wean ARF: In the setting of acute illness diuretics are at home dosing, possibly related to vanco status vs dehydration Remains WNL off of vanco, monitor Chronic CHF: Uncertain dx as there is no ECHO on file and effusions are likely related to cancer status COPD , stable , 02 protocol - no evidence of bronchospasm but would have low threshold for steroid therapy as this may palliate her regardless. Chronic UTI - recent micro + for Klebsiella Oxycota - largely pansensitive and would be covered by provided antibiotics. DNR - Heparin prophylaxis Per pt, no home O2 in place, will need set up prior to d/c if warranted. Continued [facility] stay due to: multiple IV medications needed Discharge planning: home
[2017-02-25] MEDS: OXYCODONE HCL IR 5 MG TAB (IMMEDIATE RELEASE) PO PRN ×2 (12:34→18:05)
[2017-02-25] MEDS ORDERED: DORNASE ALFA 2.5MG 5 ML in SYRINGE 25 ML IPL SCH ×2 (14:00→14:01)
[2017-02-25] MEDS ORDERED: ALTEPLASE, RECOMBINANT 1 MG/ML 2 ML VIAL IPL SCH (14:00)
--- NOTE | 2017-02-25 17:08 | Progress Note ---
Progress Note Date of Service Feb 25, 2017. Progress Note Both Pleurex drained for about 20-30 cc fluid. [address] in both catheters adn drained about 1 hour later for about 20 cc fluid. 5 mg dornase placed in both catheters. RN to drain in 2 hours.
--- NOTE | 2017-02-25 19:40 | OPERATIVE REPORT ---
DATE OF OPERATION: 02/25/2017 PROCEDURE: Instillation of Pulmozyme bilateral PleurX catheter. SURGEON: Dandre Blair MD SPECIFICS OF PROCEDURE: A 5 mg of Pulmozyme was reconstituted in 30 mL of normal saline by the pharmacy. Both chest tubes had had instillation of tissue plasminogen activator earlier in the morning and then drained. I then instilled 5 mg of Pulmozyme and 30 mL of normal saline sterilely using an IV and sterilely prepping the end of each PleurX catheter. She tolerated this well. I capped both of these. We will drain her again in the next 1-2 hours. I attest to the content of the Intraoperative Record and any orders documented therein. Any exceptio ns are noted below.
[2017-02-25] MEDS: TIMOLOL MALEATE 0.25% OP SOLN 5 ML BTL OP SCH (20:43)
[2017-02-25] MEDS: CITALOPRAM 20 MG TAB PO SCH (20:45)
[2017-02-26] VITALS (14 sets, daily range): BP systolic 155–188; BP diastolic 57–69; PULSE 62–80; TEMP 36.7–37.2; O2SAT 90–92
[2017-02-26] MEDS: OXYCODONE HCL IR 5 MG TAB (IMMEDIATE RELEASE) PO PRN ×4 (02:09→21:29)
[2017-02-26] MEDS: HEPARIN SOD 5000 UNIT/0.5 ML CARP SQ SCH ×3 (05:52→21:24)
[2017-02-26] MEDS ORDERED: ALTEPLASE IPL ONE ×4 (06:30→06:31)
[2017-02-26] MEDS ORDERED: RECOMBINANT IPL ONE ×4 (06:30→06:31)
[2017-02-26] MEDS ORDERED: ALTEPLASE, RECOMBINANT 1 MG/ML 2 ML VIAL IPL ONE (06:30)
[2017-02-26] MEDS ORDERED: DORNASE ALFA (2500U) 2.5MG/2.5ML IPL ONE ×2 (06:30→15:00)
[2017-02-26] MEDS ORDERED: DORNASE ALFA 2.5MG 5 ML in SYRINGE 25 ML IPL ONE ×2 (06:30→06:31)
[2017-02-26] MEDS ORDERED: SODIUM CHLORIDE 0.9% IPL ONE ×4 (06:30→06:31)
--- NOTE | 2017-02-26 07:02 | DIAGNOSTIC IMAGING REPORT ---
CHEST ONE VIEW PORTABLE CLINICAL HISTORY: Pleural effusions COMPARISON STUDY: 02/25/2017 FINDINGS: The cardiac and mediastinal contours remain stable. There are bilateral pleural drains unchanged in position. Bilateral upper lung zone opacities remain stable. There is mild interstitial thickening. No pneumothorax is visualized. Underlying chronic lung disease is suspected.[ IMPRESSION: 1. Persistent bilateral pleural drains. 2. No evidence of pneumothorax 3. Stable trace pleural fluid 4. Stable upper lung zone opacities Electronically signed by: Chris Carlos M.D. 02/26/2017 7:00 AM Dictated Date/Time: 02/26/2017 6:59 AM
[2017-02-26] MEDS: IPRATROPIUM BROMIDE NEB SOLN 0.02% 2.5 ML VIAL INH SCH (07:10)
[2017-02-26] MEDS: ANORO ELLIPTA~ORDER AWAITING ACTION SCH ×2 (08:00→16:00)
--- NOTE | 2017-02-26 08:17 | Surgery Progress Note ---
Subjective Date of Service: Feb 26, 2017. Pt. notes her breathing is good this am Objective Vitals Date Time Temp Pulse Resp B/P Pulse Ox O2 Delivery O2 Flow Rate FiO2 02/26/17 07:46 37.2 80 20 181/68 91 Room Air 02/26/17 07:10 72 16 91 Room Air 02/26/17 04:00 Room Air 02/26/17 03:20 37.0 72 17 169/65 92 Room Air 02/26/17 00:00 Room Air 02/25/17 23:46 37.0 80 17 151/70 92 Room Air 02/25/17 20:00 93 Room Air 02/25/17 19:45 75 16 90 Room Air 02/25/17 19:11 36.9 65 16 155/54 90 Room Air 02/25/17 16:00 92 Room Air 02/25/17 15:50 36.5 68 18 161/66 100 02/25/17 15:45 69 16 93 Room Air 02/25/17 10:50 67 16 100 Nasal Cannula 1.0 Physical Exam General: No distress CV: + RRR Pulmonary: + pertinent finding (decreased at bases), No accessory muscle use, No respiratory distress Extremities: No calf tenderness Radiology CXR today shows trace pleural fluid at bases Drains / Tubes pleurex (bilateral drained for 50 cc this am ) Assessment & Plan 86 year old female with bilateral pleural effusions -will continue MIST II protocol today--10 mg TPA and 5 mg donase placed in both pleurex this am at approx 7am and 8 am respectively; both pleurex dained for about 50 cc 1 hour after TPA placed -will repeat CT scan in am to reassess effusions -10 mg TPA and 5 mg donase placed in both pleurex this afternoon at approx 3 pm and 4 pm respectively; catheters had about 30 cc each after 1 hour after TP A placed. RN to drain in about 2 hours
[2017-02-26] MEDS: MAGNESIUM HYDROXIDE SUSP 30 ML UDC PO SCH ×2 (09:00→11:40)
[2017-02-26] MEDS: PENTOXIFYLLINE 400MG EXT REL TAB PO SCH ×2 (11:37→21:19)
[2017-02-26] MEDS: HydrALAZINE 10 MG TAB PO SCH ×3 (11:38→21:17)
[2017-02-26] MEDS: CYANOCOBALAMIN 500 MCG TAB (VIT B-12) PO SCH (11:38)
[2017-02-26] MEDS: TORSEMIDE 20 MG TAB PO SCH (11:38)
[2017-02-26] MEDS: OMEGA-3 (PURIFIED FISH OIL) 1 GM CAP PO SCH (11:38)
[2017-02-26] MEDS: ASPIRIN 81 MG ECTAB PO SCH (11:38)
[2017-02-26] MEDS: AMLODIPINE BESYLATE 5 MG TAB PO SCH (11:38)
[2017-02-26] MEDS: SENNA 8.6 MG TAB PO SCH (11:39)
[2017-02-26] MEDS: METOPROLOL SUCC 50MG EXT REL TAB PO SCH (11:39)
[2017-02-26] MEDS: SPIRONOLACTONE 25 MG TAB PO SCH (11:39)
[2017-02-26] MEDS: IRBESARTAN 150 MG TAB PO SCH (11:39)
[2017-02-26] MEDS: FAMOTIDINE 20 MG TAB PO SCH ×2 (11:40→21:18)
[2017-02-26] MEDS: CHOLECALCIFEROL 1000 INTER.UNIT TAB PO SCH (11:40)
[2017-02-26] MEDS: DOCUSATE SODIUM 100 MG CAP PO SCH ×2 (11:40→21:18)
[2017-02-26 13:53] LABS: MANUAL MICROSCOPIC REQUIRED? NO; REVIEW REQ? NO; URINE APPEARANCE CLOUDY (CLEAR); URINE BILIRUBIN NEG (NEG); URINE COLOR YELLOW; URINE EPITHELIAL CELL AUTO 0-5 /lpf (0-5); URINE NITRITE NEG (NEG); URINE SPECIFIC GRAVITY 1.017 (1.000-1.030); UROBILINOGEN NEG (NEG)
[2017-02-26] MEDS ORDERED: ALTEPLASE, RECOMBINANT 1 MG/ML 2 ML VIAL IPL SCH (15:00)
[2017-02-26] MEDS: SODIUM CHLORIDE 0.9% IV SCH ×4 (15:00→15:01)
[2017-02-26] MEDS: RECOMBINANT IV SCH ×4 (15:00→15:01)
[2017-02-26] MEDS: ALTEPLASE IV SCH ×4 (15:00→15:01)
[2017-02-26] MEDS: DORNASE ALFA 2.5MG 5 ML in SYRINGE 25 ML IPL SCH ×2 (15:00→15:01)
[2017-02-26] MEDS: CEFTRIAXONE SOD INJ 1 GM in DEXTROSE 5% ADD-VANTAGE 50ML 50 ML IV SCH (15:26)
--- NOTE | 2017-02-26 18:34 | Progress Note ---
Subjective Date of Service: Feb 26, 2017. Subjective Pt evaluation today including: conversation w/ patient, physical exam, chart review, lab review, review of studies (cxr), review of inpatient medication list Pain: chest where pleurX catheters are located PO Intake: fair Voiding: incontinence sleepy/tired today because she did not sleep well last night was up much of night with urinary frequency, dribbling, and incontinence she has dysuria that started late last night telemetry normal overnight denies any cough or sob at rest Problem List Medical Problems: (1) Dyspnea Status: Acute (2) Hypoxia Status: Acute (3) Pulmonary edema Status: Acute Review of Systems Constitutional: No chills, No fever Respiratory: No cough Cardiac: No orthopnea Abdomen: No pain Objective Vital Signs Date Time Temp Pulse Resp B/P Pulse Ox O2 Delivery O2 Flow Rate FiO2 02/26/17 16:20 187/64 02/26/17 16:00 92 Room Air 02/26/17 15:30 187/64 02/26/17 15:17 36.7 75 18 168/57 92 Room Air 02/26/17 14:14 167/68 02/26/17 12:02 Room Air 02/26/17 11:41 37.0 62 22 188/65 91 Room Air 02/26/17 07:46 37.2 80 20 181/68 91 Room Air 02/26/17 07:10 72 16 91 Room Air 02/26/17 04:00 Room Air 02/26/17 03:20 37.0 72 17 169/65 92 Room Air 02/26/17 00:00 Room Air 02/25/17 23:46 37.0 80 17 151/70 92 Room Air 02/25/17 20:00 93 Room Air 02/25/17 19:45 75 16 90 Room Air 02/25/17 19:11 36.9 65 16 155/54 90 Room Air Physical Exam General Appearance: + cachetic, + thin ENT: pharynx normal Neck: no JVD Respiratory/Chest: no respiratory distress, no accessory muscle use, + decreased breath sounds (bases), + accessory muscle use, + crackles (bases and RUL anteriorly) Cardiovascular: regular rate, rhythm, no gallop Abdomen: normal bowel sounds, non tender, soft, no organomegaly Extremities: no pedal edema 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iatric: alert, oriented x 3 Skin: + pertinent finding (b/l pleurX catheters in place ) Laboratory Results Last 24 Hours Test 02/26/17 00:00 Urine Color YELLOW Urine Appearance CLOUDY Urine pH 6.0 Urine Specific [place] 1.017 Urine Protein 1+ Urine Glucose (UA) NEG Urine Ketones NEG Urine Occult Blood 3+ Urine Nitrite NEG Urine Bilirubin NEG Urine Urobilinogen NEG Urine Leukocyte Esterase MODERATE Urine WBC (Auto) >30 /hpf Urine RBC (Auto) >30 /hpf Urine Hyaline Casts (Auto) 1-5 /lpf Urine Epithelial Cells (Auto) 0-5 /lpf Urine Bacteria (Auto) 4+ Assessment and Plan 86yo female with: 1. b/l transudative pleural effusions - s/p pleurX catheters in the past and currently with same. She has had the catheters drained daily during her stay here and CT surgery ( Dr. Blair) has put her on alteplase/dornase protocol. CT chest in the AM ordered by CT surgery. 2. dysuria - u/a and urine cx. Start rocephin if u/a suspicious for UTI. 3. VALORIE lung cancer - NSCLC - has not had Rx to date. 4. severe COPD - is on schedule nebs. Stable. 5. DVT proph - heparin TID. 6. 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 7. chronic respiratory failure on home O2 - stable. 8. h/o CHF - appears compensated. 9. HTN - is on complex regimen of BP meds. Will check orthostatics as her diastolic pressure is quite low and further titration of her BP meds may result in orthostasis. 10. Anxiety/depression - cont outpatient meds. 11. gout - no flare at this time. 12. protein calorie malnutrition - moderate - boost BID. dispo - Sudheer chowdhury to med/surg Continued [facility] stay due to: multiple IV medications needed Discharge planning: [facility] facility
[2017-02-26] MEDS: TIMOLOL MALEATE 0.25% OP SOLN 5 ML BTL OP SCH (21:16)
[2017-02-26] MEDS: CITALOPRAM 20 MG TAB PO SCH (21:18)
[2017-02-27] VITALS (15 sets, daily range): BP systolic 149–188; BP diastolic 56–78; PULSE 63–92; TEMP 36.9–37.1; O2SAT 91–99
[2017-02-27] MEDS: DIAZEPAM 5MG TAB PO PRN (00:04)
[2017-02-27] MEDS: ANORO ELLIPTA~ORDER AWAITING ACTION SCH ×3 (00:32→16:00)
[2017-02-27] MEDS: OXYCODONE HCL IR 5 MG TAB (IMMEDIATE RELEASE) PO PRN ×2 (03:54→14:38)
[2017-02-27] MEDS: HEPARIN SOD 5000 UNIT/0.5 ML CARP SQ SCH ×3 (06:15→22:08)
[2017-02-27] MEDS: IPRATROPIUM BROMIDE NEB SOLN 0.02% 2.5 ML VIAL INH SCH ×4 (07:47→19:21)
[2017-02-27 08:17] LABS: BUN/CREATININE RATIO 31.9 (10-20); CREATININE 1.1 mg/dl (0.60-1.20); POTASSIUM 3.9 mmol/L (3.5-5.1)
[2017-02-27 08:51] LABS: CALCIUM 9.3 mg/dl (8.5-10.1)
[2017-02-27] MEDS: FAMOTIDINE 20 MG TAB PO SCH ×2 (09:27→20:37)
[2017-02-27] MEDS: DOCUSATE SODIUM 100 MG CAP PO SCH ×2 (09:28→20:36)
[2017-02-27] MEDS: MAGNESIUM HYDROXIDE SUSP 30 ML UDC PO SCH (09:28)
[2017-02-27] MEDS: IRBESARTAN 150 MG TAB PO SCH (09:29)
[2017-02-27] MEDS: CHOLECALCIFEROL 1000 INTER.UNIT TAB PO SCH (09:30)
[2017-02-27] MEDS: SENNA 8.6 MG TAB PO SCH (09:30)
[2017-02-27] MEDS: SPIRONOLACTONE 25 MG TAB PO SCH (09:31)
[2017-02-27] MEDS: OMEGA-3 (PURIFIED FISH OIL) 1 GM CAP PO SCH (09:31)
[2017-02-27] MEDS: AMLODIPINE BESYLATE 5 MG TAB PO SCH (09:32)
[2017-02-27] MEDS: METOPROLOL SUCC 50MG EXT REL TAB PO SCH (09:32)
[2017-02-27] MEDS: TORSEMIDE 20 MG TAB PO SCH (09:32)
[2017-02-27] MEDS: ASPIRIN 81 MG ECTAB PO SCH (09:33)
[2017-02-27] MEDS: CYANOCOBALAMIN 500 MCG TAB (VIT B-12) PO SCH (09:34)
[2017-02-27] MEDS: PENTOXIFYLLINE 400MG EXT REL TAB PO SCH ×2 (09:35→20:37)
--- NOTE | 2017-02-27 10:47 | DIAGNOSTIC IMAGING REPORT ---
CT OF THE CHEST WITHOUT IV CONTRAST CLINICAL HISTORY: pleural effusions HYPOXIA , Non-small cell lung carcinoma COMPARISON STUDY: 02/20/2017 CT DOSE: 177.34 mGy.cm TECHNIQUE: CT of the thorax was performed from the thoracic inlet to the lung bases. Images are reviewed in the axial, sagittal, and coronal planes. IV contrast was not administered for this examination. FINDINGS: Thyroid: Imaged portions of the thyroid gland are normal in appearance. Thoracic aorta: The thoracic aorta is normal in course and caliber, noting standard 3 vessel arch anatomy. Heart: The heart is enlarged with coronary artery calcifications. Lungs and pleural spaces: There are bilateral pleural drains. There is severe pulmonary emphysema. There is a spiculated 21 mm left upper lobe point nodule suspicious for a bronchogenic neoplasm. There is a persistent area of focal pulmonary consolidation within the posterior aspect of the right upper lobe. There is a persistent 13 mm opacity within the base of the right upper lobe anteriorly. There are scattered bilateral areas of tree-in-bud nodularity, likely inflammatory. Mediastinum: There is mild mediastinal lymphadenopathy similar to the prior study. Breanne: There is no pathologic hilar adenopathy given the limitations of a noncontrast study Axilla: There is no evidence of pathologic axillary lymphadenopathy Upper abdomen: Partially visualized upper abdominal viscera is within normal limits. Skeletal structures: There is an old sternal fracture. There is an old T4 and T7 vertebral body fracture. There is an old L1 fracture. There is an old sternal fracture.. IMPRESSION: 1. Bilateral pleural drainage catheters remain in place. Interval decrease in the size of the bilateral pleural effusions 2. Mild mediastinal lymphadenopathy unchanged the prior study 3. Cardiomegaly and coronary calcifications 4. Stable 2.1 cm spiculated left upper lobe nodule suspicious for a carcinoma 5. Stable area of consolidation within the posterior segment the right upper lobe. There are additional bilateral airspace opacities, suspicious for a multifocal infectious/inflammatory process Electronically signed by: Chris Carlos M.D. 02/27/2017 10:45 AM Dictated Date/Time: 02/27/2017 10:38 AM
--- NOTE | 2017-02-27 12:15 | Surgery Progress Note ---
Subjective Date of Service: Feb 27, 2017. Pt. denies SOB, fevers, shakes, or chills. Objective Vitals Date Time Temp Pulse Resp B/P Pulse Ox O2 Delivery O2 Flow Rate FiO2 02/27/17 11:53 188/60 02/27/17 11:50 163/65 02/27/17 11:48 36.9 74 16 176/70 99 Room Air 02/27/17 11:35 63 16 92 Room Air 02/27/17 08:59 Room Air 02/27/17 08:58 91 Room Air 02/27/17 08:40 36.9 76 15 169/63 91 Room Air 02/27/17 08:00 76 152/78 02/27/17 08:00 154/61 02/27/17 07:49 75 16 92 Room Air 02/27/17 00:15 Room Air 02/26/17 23:51 74 159/68 165/65 155/58 02/26/17 23:28 36.8 71 14 155/68 90 Room Air 02/26/17 21:30 70 159/68 02/26/17 21:30 69 161/62 02/26/17 21:30 74 173/67 91 Room Air 02/26/17 19:50 36.9 79 16 171/66 91 Room Air 02/26/17 19:50 91 Room Air 02/26/17 19:30 36.7 75 18 92 2.0 02/26/17 16:20 179/69 02/26/17 16:00 92 Room Air 02/26/17 15:30 187/64 02/26/17 15:17 36.7 75 18 168/57 92 Room Air 02/26/17 14:14 167/68 Physical Exam General: No distress Pulmonary: + lungs clear, No accessory muscle use, No respiratory distress Neurologic: + alert & oriented x 3 Assessment & Plan 86 year old female with bilateral pleural effusions -continue daily drainage of pleurex catheters -CT scan of chest today shows improvement of effusion; lung nodule noted--will address with surgeon at later date
[2017-02-27] MEDS: CEFTRIAXONE SOD INJ 1 GM in DEXTROSE 5% ADD-VANTAGE 50ML 50 ML IV SCH (13:52)
--- NOTE | 2017-02-27 16:19 | DIAGNOSTIC IMAGING REPORT ---
KUB CLINICAL HISTORY: abdominal pain COMPARISON STUDY: CT scan dated 02/20/2017 FINDINGS: Bilateral chest tubes are visualized. There is a lumbar dextroscoliosis. There are postprocedural changes of a prior L3 vertebral plasty. There are postsurgical changes involving the left hip. There are advanced arthritic changes involving the right hip. There is no pathologic bowel dilatation. There are scattered left colonic stool. IMPRESSION: No evidence of pathologic bowel dilatation. Electronically signed by: Chris Carlos M.D. 02/27/2017 4:17 PM Dictated Date/Time: 02/27/2017 4:16 PM
--- NOTE | 2017-02-27 18:09 | Progress Note ---
Subjective Date of Service: Feb 27, 2017. Subjective Pt evaluation today including: conversation w/ patient, physical exam, chart review, lab review, review of studies (CT chest, KUB x-ray), conversation w/ senior environmental consultant (CT surgery), review of inpatient medication list Pain: mild abdominal pain (see below) PO Intake: fair Voiding: no voiding problems, incontinence pt reports intermittent, brief episodes of abdominal discomfort that often occur AFTER eating; she points to the entire abdomen as the location of the discomfort she states "it starts here and just goes across to over there" (from the right side of abdomen to the left side) lasts a few seconds/less than 1 minute then resolves denies nausea or emesis had stool yesterday but small in size and very hard/firm; had to strain denies any pulmonary symptoms today dysuria is better Problem List Medical Problems: (1) Dyspnea Status: Acute (2) Hypoxia Status: Acute (3) Pulmonary edema Status: Acute Review of Systems Constitutional: No chills, No fever Respiratory: No cough, No sputum Cardiac: No chest pain, No orthopnea Abdomen: + pain, + see HPI, No GI bleeding, No nausea, No vomiting Objective Vital Signs Date Time Temp Pulse Resp B/P Pulse Ox O2 Delivery O2 Flow Rate FiO2 02/27/17 15:50 78 16 94 Room Air 02/27/17 15:06 37.1 78 16 158/62 91 Room Air 02/27/17 14:32 67 158/57 02/27/17 11:53 188/60 02/27/17 11:50 163/65 02/27/17 11:48 36.9 74 16 176/70 99 Room Air 02/27/17 11:35 63 16 92 Room Air 02/27/17 09:00 Room Air 02/27/17 08:59 Room Air 02/27/17 08:58 91 Room Air 02/27/17 08:40 36.9 76 15 169/63 91 Room Air 02/27/17 08:00 76 152/78 02/27/17 08:00 154/61 02/27/17 07:49 75 16 92 Room Air 02/27/17 00:15 Room Air 02/26/17 23:51 74 159/68 165/65 155/58 02/26/17 23:28 36.8 71 14 155/68 90 Room Air 02/26/17 21:30 70 159/68 02/26/17 21:30 69 161/62 02/26/17 21:30 74 173/67 91 Room Air 02/26/17 19:50 36.9 79 16 171/66 91 Room Air 02/26/17 19:50 91 Room Air 02/26/17 19:30 36.7 75 18 92 2.0 Physical Exam General Appearance: no apparent distress, + thin ENT: pharynx normal Neck: no JVD Respiratory/Chest: no respiratory distress, no accessory muscle use, + decreased breath sounds (bases (very mild)) Cardiovascular: regular rate, rhythm, no gallop, no murmur Abdomen: normal bowel sounds, non tender, soft, no organomegaly, no pulsatile mass Extremities: no pedal edema 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iatric: alert, oriented x 3 Laboratory Results Last 24 Hours Test 02/27/17 07:19 Sodium Level 139 mmol/L Potassium Level 3.9 mmol/L Chloride Level 103 mmol/L Carbon Dioxide Level 28 mmol/L Anion Gap 8.0 mmol/L Blood Urea Nitrogen 35 mg/dl Creatinine 1.10 mg/dl Est Creatinine Clear Calc Drug Dose 25.9 ml/min Estimated GFR () 53.0 Estimated GFR (Non- 45.7 BUN/Creatinine Ratio 31.9 Random Glucose 108 mg/dl Calcium Level 9.3 mg/dl Assessment and Plan 86yo female with: 1. b/l transudative pleural effusions - s/p pleurX catheters in the past and currently with same. She has had the catheters drained daily during her stay here and CT surgery ( Dr. Blair) had put her on alteplase/dornase protocol - this has been completed. CT chest today shows significant improvement in the effusions. Cont catheters & daily drainage. 2. GNR UTI - awaiting final Cx result. Continue rocephin, day #2 of such. 3. VALORIE lung cancer - NSCLC - has not had Rx to date. To be addressed in future. 4. severe COPD - is on schedule nebs. Stable & not in exacerbation. 5. DVT proph - heparin TID. 6. 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 7. chronic respiratory failure on home O2 - stable. 8. h/o CHF - appears compensated. 9. HTN - is on complex regimen of BP meds. Has mild orthostasis. Will increase hydralazine to 25mg TID only. 10. Anxiety/depression - cont outpatient meds. 11. gout - no flare at this time. 12. protein calorie malnutrition - moderate - boost BID. 13. anemia - recheck CBC in am for stability. 14. abdominal discomfort - KUB checked - copious stool, especially left-sided ( my reading). Sounds like colic from constipation. Double her senna and add miralax. Doubt mesenteric ischemia. Some pain could be UTI-related. dispo - Sudheer Dee Faizan Wednesday? left message for daughter, Graciela, on 02/27/17 Continued [facility] stay due to: multiple IV medications needed Discharge planning: [facility] facility
[2017-02-27] MEDS ORDERED: SENNA 8.6 MG TAB PO ONE (18:15)
[2017-02-27] MEDS ORDERED: POLYETHYLENE (MIRALAX) 17 GM PACK PO ONE (18:15)
[2017-02-27] MEDS: TIMOLOL MALEATE 0.25% OP SOLN 5 ML BTL OP SCH (20:35)
[2017-02-27] MEDS: CITALOPRAM 20 MG TAB PO SCH (20:37)
[2017-02-28] VITALS (10 sets, daily range): BP systolic 133–184; BP diastolic 55–76; PULSE 65–82; TEMP 36.5–37; O2SAT 90–97
[2017-02-28] MEDS: OXYCODONE HCL IR 5 MG TAB (IMMEDIATE RELEASE) PO PRN ×3 (00:03→19:28)
[2017-02-28] MEDS: HEPARIN SOD 5000 UNIT/0.5 ML CARP SQ SCH ×3 (06:15→21:46)
[2017-02-28] MEDS: IPRATROPIUM BROMIDE NEB SOLN 0.02% 2.5 ML VIAL INH SCH ×4 (07:43→20:20)
[2017-02-28] MEDS: ANORO ELLIPTA~ORDER AWAITING ACTION SCH ×3 (08:00→16:00)
--- NOTE | 2017-02-28 08:07 | Surgery Progress Note ---
Subjective Date of Service: Feb 28, 2017. Pt. currently comfortable. No specific complaints noted at the time of my visit Objective Vitals Date Time Temp Pulse Resp B/P Pulse Ox O2 Delivery O2 Flow Rate FiO2 02/28/17 07:43 72 16 93 Room Air 02/28/17 07:22 37.0 74 18 165/70 92 Room Air 02/28/17 07:15 90 Room Air 02/28/17 00:05 Room Air 02/27/17 23:58 87 161/56 92 163/69 71 164/67 02/27/17 22:50 36.9 72 17 168/62 92 Room Air 02/27/17 19:21 73 16 92 Room Air 02/27/17 16:30 78 149/56 83 153/63 88 165/68 02/27/17 16:20 Room Air 02/27/17 15:50 78 16 94 Room Air 02/27/17 15:06 37.1 78 16 158/62 91 Room Air 02/27/17 14:32 67 158/57 02/27/17 11:53 188/60 02/27/17 11:50 163/65 02/27/17 11:48 36.9 74 16 176/70 99 Room Air 02/27/17 11:35 63 16 92 Room Air 02/27/17 09:00 Room Air 02/27/17 08:59 Room Air 02/27/17 08:58 91 Room Air 02/27/17 08:40 36.9 76 15 169/63 91 Room Air Physical Exam General: No distress CV: + RRR Pulmonary: + lungs clear, No accessory muscle use, No respiratory distress Neurologic: + alert & oriented x 3 Drains / Tubes pleurex (bilateral--minimal drainage noted) Assessment & Plan 86 year old female with bilateral pleural effusions -MIST II protocol completed on 02/26/17 -continue daily drainage of pleurex catheters -CT scan of chest (02/26/17) shows improvement of effusion; lung nodule noted-- will address with surgeon at later date
[2017-02-28 08:16] LABS: HEMATOCRIT 31.4 % (37-47); MEAN CELL VOLUME 94.9 fL (80-100); MEAN CORPUSCULAR HEMOGLOBIN 30.5 pg (25-34); MEAN CORPUSCULAR HGB CONC 32.2 g/dl (32-36); MEAN PLATELET VOLUME 9.8 fL (7.4-10.4); PLATELET COUNT 498 K/uL (130-400); RED BLOOD COUNT 3.31 M/uL (4.2-5.4); WHITE BLOOD COUNT 9.64 K/uL (4.8-10.8)
[2017-02-28 08:35] LABS: BUN/CREATININE RATIO 30.5 (10-20); CREATININE 0.95 mg/dl (0.60-1.20); POTASSIUM 3.9 mmol/L (3.5-5.1)
[2017-02-28 08:55] LABS: CALCIUM 9.4 mg/dl (8.5-10.1)
[2017-02-28] MEDS: POLYETHYLENE (MIRALAX) 17 GM PACK PO SCH ×2 (09:00→09:43)
[2017-02-28] MEDS: DOCUSATE SODIUM 100 MG CAP PO SCH ×2 (09:41→20:41)
[2017-02-28] MEDS: FAMOTIDINE 20 MG TAB PO SCH ×2 (09:41→20:42)
[2017-02-28] MEDS: PENTOXIFYLLINE 400MG EXT REL TAB PO SCH ×2 (09:41→20:43)
[2017-02-28] MEDS: AMLODIPINE BESYLATE 5 MG TAB PO SCH (09:42)
[2017-02-28] MEDS: CHOLECALCIFEROL 1000 INTER.UNIT TAB PO SCH (09:43)
[2017-02-28] MEDS: SPIRONOLACTONE 25 MG TAB PO SCH (09:44)
[2017-02-28] MEDS: TORSEMIDE 20 MG TAB PO SCH (09:44)
[2017-02-28] MEDS: CYANOCOBALAMIN 500 MCG TAB (VIT B-12) PO SCH (09:45)
[2017-02-28] MEDS: METOPROLOL SUCC 50MG EXT REL TAB PO SCH (09:45)
[2017-02-28] MEDS: OMEGA-3 (PURIFIED FISH OIL) 1 GM CAP PO SCH (09:48)
[2017-02-28] MEDS: IRBESARTAN 150 MG TAB PO SCH (09:48)
[2017-02-28] MEDS: SENNA 8.6 MG TAB PO SCH (09:49)
[2017-02-28] MEDS: MAGNESIUM HYDROXIDE SUSP 30 ML UDC PO SCH (09:49)
[2017-02-28] MEDS: ASPIRIN 81 MG ECTAB PO SCH (09:49)
[2017-02-28] MEDS: ACETAMINOPHEN 325 MG TAB PO PRN (12:06)
[2017-02-28] MEDS: CEFTRIAXONE SOD INJ 1 GM in DEXTROSE 5% ADD-VANTAGE 50ML 50 ML IV SCH (13:29)
[2017-02-28] MEDS: TIMOLOL MALEATE 0.25% OP SOLN 5 ML BTL OP SCH (20:41)
[2017-02-28] MEDS: CITALOPRAM 20 MG TAB PO SCH (20:42)
--- NOTE | 2017-02-28 23:25 | Progress Note ---
Subjective Date of Service: Feb 28, 2017. Subjective Pt evaluation today including: conversation w/ patient, conversation w/ family (daughter by phone), physical exam, chart review, lab review, conversation w/ eyewear consultant (thoracic surgery ), review of inpatient medication list Pain: denies any new pain; abdominal pain resolved PO Intake: fair Voiding: no voiding problems (dysuria resolved) no issues overnight multiple bowel movements with use of miralax/senna denies abd pain denies orthopnea, sob, cough Problem List Medical Problems: (1) Dyspnea Status: Acute (2) Hypoxia Status: Acute (3) Pulmonary edema Status: Acute Review of Systems Constitutional: No chills, No fever Respiratory: No cough Cardiac: No chest pain, No orthopnea Abdomen: No pain Objective Vital Signs Date Time Temp Pulse Resp B/P Pulse Ox O2 Delivery O2 Flow Rate FiO2 02/28/17 20:20 66 16 94 Room Air 02/28/17 16:15 Room Air 02/28/17 15:50 78 133/62 92 Room Air 02/28/17 15:50 82 143/64 90 Room Air 02/28/17 15:50 36.5 67 16 149/55 92 Room Air 02/28/17 15:37 66 16 94 Room Air 02/28/17 15:15 36.5 65 16 137/63 94 Room Air 02/28/17 11:53 74 178/63 97 Room Air 180/75 184/76 02/28/17 11:38 74 16 92 Room Air 02/28/17 07:43 72 16 93 Room Air 02/28/17 07:22 37.0 74 18 165/70 92 Room Air 02/28/17 07:20 Room Air 02/28/17 07:15 90 Room Air 02/28/17 00:05 Room Air 02/27/17 23:58 87 161/56 92 163/69 71 164/67 Physical Exam General Appearance: no apparent distress, + cachetic, + thin ENT: pharynx normal Neck: no JVD Respiratory/Chest: lungs clear, no respiratory distress, no accessory muscle use Cardiovascular: regular rate, rhythm, no gallop Abdomen: normal bowel sounds, non tender, soft, no organomegaly Extremities: no pedal edema 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iatric: alert, oriented x 3 Laboratory Results Last 24 Hours Test 02/28/17 07:57 White Blood Count 9.64 K/uL Red Blood Count 3.31 M/uL Hemoglobin 10.1 g/dL Hematocrit 31.4 % Mean Corpuscular Volume 94.9 fL Mean Corpuscular Hemoglobin 30.5 pg Mean Corpuscular Hemoglobin Concent 32.2 g/dl RDW Standard Deviation 62.1 fL RDW Coefficient of Variation 17.8 % Platelet Count 498 K/uL Mean Platelet Volume 9.8 fL Sodium Level 138 mmol/L Potassium Level 3.9 mmol/L Chloride Level 100 mmol/L Carbon Dioxide Level 30 mmol/L Anion Gap 8.0 mmol/L Blood Urea Nitrogen 29 mg/dl Creatinine 0.95 mg/dl Est Creatinine Clear Calc Drug Dose 29.9 ml/min Estimated GFR () 63.3 Estimated GFR (Non- 54.6 BUN/Creatinine Ratio 30.5 Random Glucose 103 mg/dl Calcium Level 9.4 mg/dl Assessment and Plan 86yo female with: 1. b/l transudative pleural effusions - s/p pleurX catheters in the past and currently with same. She has had the catheters drained daily during her stay here and CT surgery ( Dr. Blair) performed 3-day alteplase/dornase protocol. CT chest (repeat on 02/27) showed significant improvement in the effusions. Cont catheters & daily drainage. Dr. lBair to re-eval on Wednesday, 03/01. 2. klebsiella UTI - awaiting final Cx result. Continue rocephin, day #3 of such. Transition to PO abx tomorrow. Symptoms resolved. 3. VALORIE lung cancer - NSCLC - has not had Rx to date. To be addressed in future. 4. severe COPD - is on schedule nebs. Stable & not in exacerbation. 5. DVT proph - heparin TID. 6. 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 7. chronic respiratory failure on home O2 - has not needed O2 at rest in 3 days. Will need to address oxygen needs with ambulation at time of discharge or at SNF. 8. h/o CHF - compensated. 9. HTN - is on complex regimen of BP meds. Has mild orthostasis. Controlled with current regimen and recent increase in hydralazine to 25mg TID. 10. Anxiety/depression - cont outpatient meds. 11. gout - no flare at this time. 12. protein calorie malnutrition - moderate - boost BID. 13. anemia - CBC stable today. 14. abdominal discomfort 2nd to constipation - resolved. cont bowel regimen dispo - Sudheer Gloria hopefully Wednesday? spoke with daughter, Graciela, on 02/28 - gave update Continued [facility] stay due to: multiple IV medications needed Discharge planning: assisted facility
[2017-03-01] VITALS (8 sets, daily range): BP systolic 170–183; BP diastolic 54–67; PULSE 70–87; TEMP 36.5–36.7; O2SAT 91–93
[2017-03-01] MEDS: ACETAMINOPHEN 325 MG TAB PO PRN (03:56)
[2017-03-01] MEDS: HEPARIN SOD 5000 UNIT/0.5 ML CARP SQ SCH ×2 (05:52→14:07)
[2017-03-01] MEDS: ANORO ELLIPTA~ORDER AWAITING ACTION SCH ×2 (07:08)
[2017-03-01] MEDS: IPRATROPIUM BROMIDE NEB SOLN 0.02% 2.5 ML VIAL INH SCH ×2 (07:53→11:35)
[2017-03-01] MEDS ORDERED: TALC 6 GM/PKT EXT ONE (08:30)
[2017-03-01] MEDS: DOCUSATE SODIUM 100 MG CAP PO SCH (08:30)
[2017-03-01] MEDS: MAGNESIUM HYDROXIDE SUSP 30 ML UDC PO SCH (08:30)
[2017-03-01] MEDS: POLYETHYLENE (MIRALAX) 17 GM PACK PO SCH (08:30)
[2017-03-01] MEDS: AMLODIPINE BESYLATE 5 MG TAB PO SCH (08:31)
[2017-03-01] MEDS: FAMOTIDINE 20 MG TAB PO SCH (08:31)
[2017-03-01] MEDS: ASPIRIN 81 MG ECTAB PO SCH (08:31)
[2017-03-01] MEDS: CYANOCOBALAMIN 500 MCG TAB (VIT B-12) PO SCH (08:32)
[2017-03-01] MEDS: CHOLECALCIFEROL 1000 INTER.UNIT TAB PO SCH (08:32)
[2017-03-01] MEDS: SPIRONOLACTONE 25 MG TAB PO SCH (08:32)
[2017-03-01] MEDS: IRBESARTAN 150 MG TAB PO SCH (08:32)
[2017-03-01] MEDS: TORSEMIDE 20 MG TAB PO SCH (08:32)
[2017-03-01] MEDS: OMEGA-3 (PURIFIED FISH OIL) 1 GM CAP PO SCH (08:33)
[2017-03-01] MEDS: PENTOXIFYLLINE 400MG EXT REL TAB PO SCH (08:33)
[2017-03-01] MEDS: METOPROLOL SUCC 50MG EXT REL TAB PO SCH (08:33)
[2017-03-01] MEDS: SENNA 8.6 MG TAB PO SCH (08:33)
[2017-03-01] MEDS ORDERED: CIPR-255 PO (09:37)
--- NOTE | 2017-03-01 09:46 | Discharge Instructions ---
Discharge Instructions Date of Service Mar 01, 2017. Admission Reason for Admission: Hypoxia, Pleural Effusion Discharge Discharge Diagnosis / Problem: Hypoxia, pleural effusion bilaterally Discharge Goals Goal(s): Decrease discomfort, Improve function, Increase independence, Improve disease control Activity Recommendations Activity Limitations: resume your previous activity Lifting Limitations: no more than 10 pounds, gradually increase as tolerated Exercise/Sports Limitations: gradually increase as tolerated Shower/Bathe: no limitations (with assistance) Driving or Machine Use: no limitations . Instructions / Follow-Up Instructions / Follow-Up You were admitted to [facility] with hypoxia and diagnosed with bilateral pleural effusions. This was alleviated by placing a pleurex catheter placed on 02/25/17, by pulmonary medicine, they will determine when the pleurex catheter can be removed. The fluid was tested in the lab and is not malignant (ie. not due to cancer!) Please follow up with pulmonary medicine as scheduled. During your stay here you were treated with antibiotics as you also were diagnosed with a urinary tract infection Continue taking ciprofloxacin 500 mg BID x 4 more days to complete a 1 week course. Continue taking all your other medications as prescribed. Follow up with your Primary Care Provider within 1 week. Follow up with Pulmonary medicine within 1 week. Current Hospital Diet Patient's current hospital diet: Regular Diet Discharge Diet Recommended Diet: Regular Diet Procedures Procedures Performed: 02/25/17: Bilateral pleurex catheter placement Pending Studies Studies pending at discharge: no Medical Emergencies . Who to Call and When: Medical Emergencies: If at any time you feel your situation is an emergency, please call 911 immediately. . Non-Emergent Contact Non-Emergency issues call your: Primary Care Provider Call Non-Emergent contact if: you have a fever, temperature is above 100.5, your pain is not controlled, your pain is worsening, your pain is unusual for you, your pain is concerning you, wound has increased drainage, wound has increased redness, you have any medication questions . Past History Medical & Surgical History: (1) Pleural effusion (2) Pulmonary edema (3) Hypoxia (4) Lung cancer . "Provider Documentation" section prepared by Nilsa Smith. . VTE Core Measure Inpt VTE Proph given/why not?: Unfractionated heparin SQ, T.E.D. Stockings, SCD 's
--- NOTE | 2017-03-01 11:34 | Discharge Summary ---
Discharge Summary Date of Service Mar 01, 2017. Discharge Summary Admission Date: Feb 20, 2017 at 22:00 Discharge Date: Mar 01, 2017 Discharge Disposition: snf facility ([facility]) Principal Diagnosis: Hypoxia, bilateral pleural effusion Problems/Secondary Diagnoses: Klebsiella UTI, Left upper lobe NSCLC without treatment, HTN, severe COPD, hx of chronic respiratory failure on home O2, CHF, CKD stage III, gout, protein calorie malnutrition, anemia, anxiety, depression Immunizations: Have You Had Influenza Vaccine: Unknown Procedures: 02/25/17: Bilateral pleurex catheter placement CXR 02/20/17 IMPRESSION: 1. Interstitial thickening and patchy bilateral opacities. Mild pulmonary edema is favored although an infectious process could appear similar. 2. Interval decrease in bilateral pleural effusions since prior exam. Bilateral pleural catheters remain in place. No pneumothorax identified. 3. Redemonstration of the 2 cm irregular left upper lobe nodule. CT ANGIOGRAPHY OF THE CHEST, PULMONARY EMBOLUS PROTOCOL 02/20/17 IMPRESSION: 1. No pulmonary emboli identified. 2. Small bilateral pleural effusions with bilateral pleural catheters in place. The effusions have decreased in size since CT of November 20, 2016. 3. Consolidation within the posterior segment of the right upper lobe with scattered additional airspace opacities throughout the lungs which favor a multifocal pneumonia. 4. No change in the 2.1 cm spiculated left upper lobe nodule suggestive of primary bronchogenic carcinoma. 5. Moderate to severe emphysema. 6. Moderate cardiomegaly and extensive coronary artery calcification. CT abd/pelvis with IV contrast 02/20/17 IMPRESSION: 1. Exam significantly compromised by paucity of intra-abdominal fat and lack of oral contrast. 2. Moderate right hydronephrosis of uncertain etiology. No ureteral calculus identified. 3. Extensive colonic diverticulosis without evidence for acute diverticulitis. 4. No bowel obstruction. 5. Moderate gallbladder distention without pericholecystic infiltration. This is likely unchanged since prior PET/CT. CXR 2 view, 02/24/17 IMPRESSION: 1. Persistent bilateral pleural effusions and bilateral pleural catheters 2. Persistent bilateral airspace opacities. 3. Persistent 2 cm left upper lung zone nodule CXR Single view 02/25/19 IMPRESSION: 1. Cardiomegaly and severe emphysema. 2. Pleural catheters are again seen at both lung bases. Small pleural effusions persist and are unchanged from yesterday. 3. Upper lobe airspace opacities are again noted. These are better characterized on 02/20/2017 examination. The left upper lobe opacity is consistent with neoplasm. CXR 1 view portable, 02/25/17 IMPRESSION: 1. Persistent bilateral pleural drains. 2. No evidence of pneumothorax 3. Stable trace pleural fluid 4. Stable upper lung zone opacities CT OF THE CHEST WITHOUT IV CONTRAST 02/27/17 IMPRESSION: 1. Bilateral pleural drainage catheters remain in place. Interval decrease in the size of the bilateral pleural effusions 2. Mild mediastinal lymphadenopathy unchanged the prior study 3. Cardiomegaly and coronary calcifications 4. Stable 2.1 cm spiculated left upper lobe nodule suspicious for a carcinoma 5. Stable area of consolidation within the posterior segment the right upper lobe. There are additional bilateral airspace opacities, suspicious for a multifocal infectious/inflammatory process KUB 02/27/17 IMPRESSION: No evidence of pathologic bowel dilatation. Consultations: Thoracic surgery Medication Reconciliation New Medications: Ciprofloxacin Hcl (Cipro) 500 Mg Tab 1 TAB PO BID for 4 Days, #8 TAB Continued Medications: Acetaminophen (Tylenol) 500 Mg Tab 500 MG PO Q6, TAB Amlodipine (Norvasc) 10 Mg Tab 10 MG PO DAILY, TAB Ascorbic Acid (Vitamin C) 1,000 Mg Tab 1000 MG PO DAILY Aspirin (Aspirin Ec) 81 Mg Tab 81 MG PO QAM Bisacodyl (Bisac-Evac) 10 Mg Supp 10 MG RE DAILY PRN for Constipation IF MOM NOT EFFECTIVE Cholecalciferol (Vitamin D) 2,000 Unit Tab 2000 UNITS PO QAM Citalopram Hydrobromide (Celexa) 20 Mg Tab 20 MG PO HS, TAB Cranberry (Vaccinium Macrocarp (Cranberry) 500 Mg Cap 1 CAP PO BID Cyanocobalamin (Vitamin B-12) 1,000 Mcg Tab 2000 MCG PO DAILY, TAB Diazepam (Valium) 5 Mg Tab 5 MG PO QID PRN for Anxiety, TAB Diphenhydramine Hcl (Benadryl Allergy) 25 Mg Tab 25 MG PO Q6 PRN for Itching Docusate Sodium (Dok) 100 Mg Tab 100 MG PO BID Famotidine (Pepcid) 20 Mg Tab 20 MG PO BID, TAB Fish Oil ([place]-3) 1 Ea Cap 1000 MG PO DAILY Hydralazine Hcl (Apresoline) 10 Mg Tab 20 MG PO TID 2 TABLET DOSE Hydrocortisone (Topical) (Hydrocortisone) 1 % Lot 1 APPLN TOP BID PRN for Itching Ipratropium Mckinney (Ipratropium Mckinney) 0.5 Mg/2.5 Ml Nebu 1 VIAL NEB QID for 30 Days, #300 ML 5 Refills Irbesartan (Avapro) 300 Mg Tab 300 MG PO DAILY Magnesium Hydroxide (Milk Of Magnesia) 30 Ml Susp 30 ML PO DAILY PRN for Constipation, ML NEEDED FOR NO BOWEL MOVEMENT IN 3 DAYS Melatonin-Pyridoxine (Melatonin) 1 Tab Tab 3 MG PO HS Metoprolol Succ (Toprol Xl) (Toprol-Xl) 50 Mg Tabcr 50 MG PO DAILY Multiple Vitamin (Daily Hortencia) 1 Tab Tab 1 TAB PO DAILY Oxycodone Hcl (Oxycodone Hcl) 5 Mg Cap 1 CAP PO QID for 30 Days, #120 CAP Oxycodone Ir (Roxicodone Ir) 5 Mg Tab 1-2 TAB PO Q4H PRN for Severe Pain, #12 TAB TAKE 1 TAB FOR MODERATE PAIN, 2 TAB FOR SEVERE Pentoxifylline (Pentoxifylline ER) 400 Mg Tabcr 400 MG PO BID Spironolactone (Aldactone) 25 Mg Tab 25 MG PO QAM, TAB Timolol Maleate (Ophth) (Timoptic 0.25% Oph) 0.25 % Anna Marie 1 DROP OP AMPM, BTL Torsemide (Demadex) 20 Mg Tab 20 MG PO DAILY, TAB Umeclidinium-Vilanterol (Anoro Ellipta 62.5-25 Mcg/INH) 1 Aer Aer 1 PUFF INH DAILY Discharge Exam The patient was seen and examined this morning. Pt reports doing well. She states her breathing has significantly improved. She has been off supplemental O2 for 3 days now. Pleurex cather was drained and only 3mL came out of one side and almost none on the other. She is currently on her third day of rocephin for UTI and reports that she has felt like she can't empty her bladder all the way. A bladder u/s was done but showed only mild retention, UCx is sensitive to rocephin. She denies any fever, sweats, or chills. She denies any acute pain and feels ready for discharge. Review of Systems: Constitutional: No chills, No fever Eyes: No diplopia, No redness ENT: No sore throat, No trouble swallowing Respiratory: No cough, No dyspnea on exertion, No shortness of breath Cardiovascular: No chest pain, No orthopnea, No palpitations Abdomen: No constipation, No diarrhea, No nausea, No pain, No vomiting Genitourinary - Female: + urinary frequency Neurologic: + weakness (feels its worse because of being hospitalized but is anticipating PT at [place]), No balance problems, No numbness/tingling Endocrine: + fatigue Integumentary: No itch, No rash Physical Exam: General Appearance: WD/WN, no apparent distress, + thin Eyes: PERRL, EOMI ENT: hearing grossly normal, pharynx normal Neck: supple, no JVD Respiratory/Chest: chest non-tender, lungs clear, no respiratory distress, no accessory muscle use, + pertinent finding (pleurex cath tubes bilaterally in place. Dressing covering insertion point are c/d/i. Surrounding area is nontender to palpation surrounding, no erythema. ) Cardiovascular: regular rate, rhythm, no murmur, normal peripheral pulses Abdomen / GI: normal bowel sounds, non tender, soft Extremities: no calf tenderness, no pedal edema, normal range of motion 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iatric: alert, normal mood/affect, oriented x 3 Skin: normal color, warm/dry Hospital Course 86yo female admitted with Hypoxia on 02/20/17. Pt was found to have bilateral pleural effusions which were a question of malignant effusion as she has had bilateral pleural catheters placed in October 2016 for similar reason. She has known VALORIE NSCLC which has not been treated. Fluid cytology was sent off and was not malignant or infectious. Dr. Blair performed 3 day alteplase/dornase protocol. CT of the chest on 02/27 showed significant improvement of the effusions. The patient was found to have klebsiella UTI and was treated with rocephin x 3 days, and pt was sent out on cipro x 4 more days to complete a week long course. She was stable for discharge to [facility]. Follow up will be scheduled with her PCP and thoracic medicine within 1 week. Follow up as directed. 1. b/l transudative pleural effusions - s/p pleurX catheters in the past and currently with same. She has had the catheters drained daily during her stay here and CT surgery ( Dr. Blair) performed 3-day alteplase/dornase protocol. CT chest (repeat on 02/27) showed significant improvement in the effusions. Cont catheters & daily drainage. Dr. Blair to re-eval on Wednesday, 03/01. 2. klebsiella UTI - awaiting final Cx result. Continue rocephin, day #4 today , Transition to Cipro 500 mg BID x 3 more days. 3. VALORIE lung cancer - NSCLC - has not had Rx to date. To be addressed in future. 4. severe COPD - is on schedule nebs. Stable & not in exacerbation. 5. DVT proph - heparin TID. 6. 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 7. chronic respiratory failure on home O2 - has not needed O2 at rest in 3 days. Pt already has O2 available back at [place], so a formal 2 step was not needed to be conducted. 8. h/o CHF - compensated. 9. HTN - is on complex regimen of BP meds. Has mild orthostasis. Controlled with current regimen and recent increase in hydralazine to 25mg TID. 10. Anxiety/depression - cont outpatient meds. 11. gout - no flare at this time. 12. protein calorie malnutrition - moderate - boost BID. 13. anemia - CBC stable today. 14. abdominal discomfort 2nd to constipation - resolved. cont bowel regimen Total Time Spent: Greater than 30 minutes This includes examination of the patient, discharge planning, medication reconciliation, and communication with other providers. Discharge Instructions Please refer to the electronic Patient Visit Report (Discharge Instructions) for additional information. Follow-Up Follow up with your Primary Care Provider within 1 week. Follow up with thoracic medicine within 1 week. Additional Copies To Abel Mayer M.D.
[2017-03-01] MEDS: OXYCODONE HCL IR 5 MG TAB (IMMEDIATE RELEASE) PO PRN ×2 (13:12→14:17)
[2017-03-01] MEDS: CEFTRIAXONE SOD INJ 1 GM in DEXTROSE 5% ADD-VANTAGE 50ML 50 ML IV SCH (14:05)
--- NOTE | 2017-03-01 17:10 | SURGERY PROGRESS NOTE ---
DATE: 03/01/2017 SUBJECTIVE: Ms. Cedeño was seen today. We are draining very little from either chest tube, and her CT scan looked great. We completely drained her effusions. Normally, I would simply pull these chest tubes; however, there are a few considerations. One is the fact that the patient's daughter and the patient are quite concerned about removing these PleurX catheters. They have really helped her breathing. On the other hand, a question has been raised whether we should sclerose her. Typically, I do not offer a pleurodesis to a patient with a benign effusion; however, given the fact this patient has nonsmall cell lung carcinoma in her left upper lobe, but is not an operative candidate due to her critical coronary artery disease, I think a consideration could be given to performing a pleurodesis. At this point, we are going to allow the patient to be discharged and continued to drain her catheters every other day. I will see her back in the office where I had a long discussion with the patient and her daughter. We may just pull these out in the office. MARISOL
[2017-03-23] MEDS ORDERED: METH4PAK PO (12:15)
[2017-03-23] MEDS ORDERED: OXYC1TAB3 PO (12:15)
[2017-03-23] MEDS ORDERED: APR25 PO (12:15)
[2017-03-23] MEDS ORDERED: LSX20 PO (12:15)
[2017-04-14] MEDS ORDERED: FRS/40 PO (10:48)
[2017-04-14] MEDS ORDERED: POTA10CA28 PO (10:52)
[2017-04-14] MEDS ORDERED: SENN-61 PO (10:54)
[2017-04-14] MEDS ORDERED: OXYC20TA50 PO (10:57)
[2017-04-14] MEDS ORDERED: ACET325T95 PO (10:58)
== END 2017-03-01 16:30 | DRG 187 ==
LOC: ENRESERVTM → ENRESERVDT → EDBD 18:10 → C.EDB 18:12 → C.2T 22:00 → C.MSN 02-26 19:57
PROVIDERS: ADMIT Internal Medicine; ATTEND Hospitalist
PROC: 0W9930Z Drainage of Right Pleural Cavity with Drainage Device, Percutaneous Approach (ICD-10-PCS; principal; 2017-02-22)
PROC: 0W9B30Z Drainage of Left Pleural Cavity with Drainage Device, Percutaneous Approach (ICD-10-PCS; principal; 2017-02-22)
PROC: 0W9B30Z Drainage of Left Pleural Cavity with Drainage Device, Percutaneous Approach (ICD-10-PCS; 2017-02-23)
PROC: 0W9930Z Drainage of Right Pleural Cavity with Drainage Device, Percutaneous Approach (ICD-10-PCS; 2017-02-23)
PROC: 0W9B30Z Drainage of Left Pleural Cavity with Drainage Device, Percutaneous Approach (ICD-10-PCS; 2017-02-24)
PROC: 0W9930Z Drainage of Right Pleural Cavity with Drainage Device, Percutaneous Approach (ICD-10-PCS; 2017-02-24)
PROC: 3C1ZX8Z Irrigation of Indwelling Device using Irrigating Substance, External Approach (ICD-10-PCS; 2017-02-25)
PROC: 0W9930Z Drainage of Right Pleural Cavity with Drainage Device, Percutaneous Approach (ICD-10-PCS; 2017-02-25)
PROC: 0W9B30Z Drainage of Left Pleural Cavity with Drainage Device, Percutaneous Approach (ICD-10-PCS; 2017-02-25)
PROC: 0W9B30Z Drainage of Left Pleural Cavity with Drainage Device, Percutaneous Approach (ICD-10-PCS; 2017-03-01)
PROC: 0W9930Z Drainage of Right Pleural Cavity with Drainage Device, Percutaneous Approach (ICD-10-PCS; 2017-03-01)
DX: J90 Pleural effusion, not elsewhere classified (principal); C34.12 Malignant neoplasm of upper lobe, left bronchus or lung; N39.0 Urinary tract infection, site not specified; J96.10 Chronic respiratory failure, unspecified whether with hypoxia or hypercapnia; E44.0 Moderate protein-calorie malnutrition; I13.0 Hypertensive heart and chronic kidney disease with heart failure and stage 1 through stage 4 chronic kidney disease, or unspecified chronic kidney disease; Z66 Do not resuscitate; N17.9 Acute kidney failure, unspecified; R64 Cachexia; Z68.1 Body mass index [BMI] 19.9 or less, adult; N18.4 Chronic kidney disease, stage 4 (severe); R09.02 Hypoxemia; B96.89 Other specified bacterial agents as the cause of diseases classified elsewhere; J44.9 Chronic obstructive pulmonary disease, unspecified; K59.00 Constipation, unspecified; D64.9 Anemia, unspecified; N18.3 Chronic kidney disease, stage 3 (moderate); I50.9 Heart failure, unspecified; I25.10 Atherosclerotic heart disease of native coronary artery without angina pectoris; F32.9 Major depressive disorder, single episode, unspecified; F41.9 Anxiety disorder, unspecified; Z51.81 Encounter for therapeutic drug level monitoring; Z79.899 Other long term (current) drug therapy; Z79.82 Long term (current) use of aspirin; Z79.891 Long term (current) use of opiate analgesic; Z99.81 Dependence on supplemental oxygen; Z87.440 Personal history of urinary (tract) infections; Z87.891 Personal history of nicotine dependence

== ENCOUNTER 2017-03-15 13:40 | Inpatient (IN) | payer OTHER ==
[2017-03-15] VITALS (9 sets, daily range): BP systolic 150–185; BP diastolic 61–75; PULSE 71–87; TEMP 36.7; O2SAT 86–99; Ht 160 cm; Wt 49.7 kg
[~2017-03-15] VITALS: Ht 160 cm; Wt 49.7 kg
[~2017-03-15 13:40] MED LIST changes: -ACET-1311 PO; +ASCO10003 PO; -ASCO1CAP3 PO; -ASPI325T39 PO; +ASPI81TA28 PO; +CHOL20009 PO; +CIPR-255 PO; +CITA20TA9 PO; -CRAN PO; +CRAN500C2 PO; +DIAZ-165 PO; +DIPH1TAB87 PO; -FURO-85 PO; +HYDR-4715 PO; -HYDR-5688 PO; +HYDR1LOT6 TOP; +IRBE-39 PO; +MELA1TAB22 PO; -MULT-506 PO; +OMEG10007 PO; -OXGN; +OXYC1CAP5 PO; +OXYC1TAB3 PO; -SERT25TA PO; -SODI1ENE; +TIMO0.05 OP; -TIMO0.2528 OP; +TORS20TA2 PO; -VALA500T60 PO; -melatonin PO; -vitamin d PO
[2017-03-15 17:45] LABS: URINE APPEARANCE CLEAR (CLEAR); URINE BILIRUBIN NEG (NEG); URINE COLOR YELLOW; URINE NITRITE NEG (NEG); URINE SPECIFIC GRAVITY 1.013 (1.000-1.030); UROBILINOGEN NEG (NEG); ZZUR CULT IF INDIC CLEAN CATCH NO
[2017-03-15 17:56] LABS: MANUAL MICROSCOPIC REQUIRED? NO; REVIEW REQ? NO
[2017-03-15] MEDS ORDERED: OXYCODONE HCL 15 MG TABCR (OXYCONTIN) PO STA (18:15)
[2017-03-15] MEDS ORDERED: FUROSEMIDE INJ 40 MG in SYRINGE 0 ML IV STA (18:17)
[2017-03-15] MEDS ORDERED: NITROGLYCERIN 0.4 MG SL PER TAB CHARGE SL PRN (18:30)
[2017-03-15] MEDS ORDERED: CEFEPIME IV 1,000 MG in DEXTROSE 5% 100ML 100 ML IV SCH (18:30)
[2017-03-15] MEDS ORDERED: ALPRAZOLAM 0.25 MG TAB PO PRN (19:00)
[2017-03-15] MEDS ORDERED: MAGNESIUM HYDROXIDE SUSP 30 ML UDC PO PRN (19:00)
[2017-03-15] MEDS ORDERED: VANCOMYCIN CONSULT ACTIVE PRN (19:00)
[2017-03-15] MEDS ORDERED: BISACODYL 10 MG SUPP PR PRN (19:00)
[2017-03-15] MEDS ORDERED: HydrALAZINE HCL 20 MG/ML VIAL IV. PRN (19:00)
[2017-03-15] MEDS ORDERED: DIAZEPAM 5MG TAB PO PRN (19:00)
[2017-03-15] MEDS: OXYCODONE HCL IR 5 MG TAB (IMMEDIATE RELEASE) PO PRN (19:13)
[2017-03-15] MEDS: ACETYLCYSTEINE 600 MG CAP PO SCH (19:14)
[2017-03-15] MEDS: SODIUM CHLORIDE 0.45% 1000ML 1,000 ML IV SCH (19:14)
[2017-03-15] MEDS: AZITHROMYCIN IV 500 MG in DEXTROSE 5% 250ML 250 ML IV SCH (19:15)
[2017-03-15] MEDS ORDERED: FUROSEMIDE INJ 100 MG in DEXTROSE 5% 100ML 90 ML IV SCH (19:15)
[2017-03-15] MEDS ORDERED: CEFEPIME CONSULT ACTIVE PRN ×2 (19:15)
--- NOTE | 2017-03-15 19:15 | History and Physical ---
History & Physical Date & Time of Service: March 15, 2017 at 18:52 Chief Complaint: Pleural Effusion, Lung Cancer Primary Care Physician: Vivek Mayer M.D. History of Present Illness Source: patient, family 86yo female with PMHs of lung cancer / NSCLC, recently treated for pneumonia and pleural effusions. Has bilateral pleural catheters placed in October 2016 and in Dec 2016 most recent admission was on 02/20/17 and discharged 03/01 Dr. Blair performed 3 day alteplase/dornase protocol. CT of the chest on showed significant improvement of the effusions. she also was found to have klebsiella UTI and was treated with rocephin x 3 days, and pt was sent out on cipro x 4 more days to complete a week long course. She was stable for discharge to [facility] and was doing well until the night before last. she developed severe SOB that got progressively worse. last night staff at [facility] transferred her to [facility] for evaluation. she was given cefepime and vancomycin there she was transferred here as Dr. Blair can evaluate her tomorrow Past Medical/Surgical History Medical Problems: (1) GI bleed Status: Resolved (2) Lung cancer Status: Chronic (3) Pleural effusion Status: Chronic Social History Smoking Status: Former Smoker Drug Use: none Marital Status: Housing status: lives alone Occupational Status: retired Immunizations History of Influenza Vaccine: Unknown Allergies Coded Allergies: Levofloxacin (Verified Allergy, Unknown, HIVES, 01/08/17) Losartan (Verified Allergy, Unknown, HIVES, 01/08/17) Olmesartan (Verified Allergy, Unknown, HIVES, 01/08/17) Pregabalin (Verified Allergy, Unknown, HIVES, 01/08/17) Sulfa Antibiotics (Verified Allergy, Unknown, HIVES, 12/07/15) Tramadol (Verified Allergy, Unknown, HIVES, 12/07/15) Home Medications Scheduled Acetaminophen (Tylenol), 500 MG PO Q6 Amlodipine (Norvasc), 10 MG PO DAILY Ascorbic Acid (Vitamin C), 500 MG PO DAILY Aspirin (Aspirin Ec), 81 MG PO QAM Cholecalciferol (Vitamin D), 2,000 UNITS PO QAM Citalopram Hydrobromide (Celexa), 20 MG PO HS Cyanocobalamin (Vitamin B-12), 2,000 MCG PO DAILY Docusate Sodium (Dok), 100 MG PO BID Famotidine (Pepcid), 20 MG PO DAILY Fish Oil ([place]-3), 1,000 MG PO DAILY Hydralazine Hcl (Apresoline), 20 MG PO TID Ipratropium [place] (Ipratropium [place]), 1 VIAL NEB QID Metoprolol Succ (Toprol Xl) (Toprol-Xl), 50 MG PO DAILY Multiple Vitamin (Daily Hortencia), 1 TAB PO DAILY Oxycodone Hcl (Oxycodone Hcl), 1 CAP PO QID Pentoxifylline (Pentoxifylline ER), 400 MG PO BID Spironolactone (Aldactone), 25 MG PO QAM Timolol Maleate (Ophth) (Timoptic 0.25% Oph), 1 DROP OP AMPM Torsemide (Demadex), 20 MG PO DAILY Umeclidinium-Vilanterol (Anoro Ellipta 62.5-25 Mcg/INH), 1 PUFF INH DAILY Scheduled PRN Bisacodyl (Bisac-Evac), 10 MG RE DAILY PRN for Constipation Diazepam (Valium), 5 MG PO QID PRN for Anxiety Diphenhydramine Hcl (Benadryl Allergy), 25 MG PO Q6 PRN for Itching Hydrocortisone (Topical) (Hydrocortisone), 1 APPLN TOP BID PRN for Itching Magnesium Hydroxide (Milk Of Magnesia), 30 ML PO DAILY PRN for Constipation Oxycodone Ir (Roxicodone Ir), 1-2 TAB PO Q4H PRN for Severe Pain Review of Systems Constitutional: No chills, No fatigue, No fever, No problem reported, No sweats , No weakness, No weight loss Eyes: No diplopia, No discharge, No eye pain, No problem reported, No redness, No worsening of vision ENT: No dental problems, No hearing loss, No nasal symptoms, No problem reported, No sore throat, No tinnitus, No trouble swallowing, No unusual epistaxis Respiratory: + dyspnea at rest, + dyspnea on exertion, + shortness of breath, No cough, No sputum Cardiovascular: + chest pain Abdomen: + pain, No GI bleeding, No constipation, No diarrhea, No nausea, No problem reported, No vomiting Musculoskeletal: No calf pain, No joint pain, No muscle pain, No problem reported, No swelling Neurologic: No balance problems, No memory loss, No numbness/tingling, No paralysis, No problem reported, No vertigo, No weakness Psychiatric: No anhedonism, No anxiety, No depression symptoms, No insomnia, No problem reported, No substance abuse Endocrine: No excessive thirst, No excessive urination, No fatigue, No problem reported Hematologic / Lymphatic: No abnormal bleeding/bruising, No clotting problems, No night sweats, No problem reported, No swollen lymph nodes Integumentary: No bleeding, No color change, No itch, No new/changing skin lesions, No problem reported, No rash Physical Exam Vital Signs Date Time Temp Pulse Resp B/P Pulse Ox O2 Delivery O2 Flow Rate FiO2 03/15/17 18:25 87 93 15.0 03/15/17 17:15 93 Diffusion Mask 10.0 03/15/17 17:00 36.7 77 32 185/63 86 Nasal Cannula 6.0 General Appearance: + severe distress, + thin Eyes: normal inspection, EOMI ENT: normal ENT inspection, hearing grossly normal Neck: supple Respiratory/Chest: + respiratory distress, + decreased breath sounds, + accessory muscle use, + crackles, + rales Cardiovascular: regular rate, rhythm, no edema, + tachycardia, + systolic murmur Abdomen/GI: normal bowel sounds, non tender, soft, no organomegaly Back: normal inspection Extremities/Musculoskelatal: normal inspection, no calf tenderness 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: 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, no motor/sensory deficits, alert, normal mood/affect, normal reflexes, oriented x 3 Skin: normal color, warm/dry, no rash Diagnostics Laboratory Results Results Past 24 Hours Test 03/15/17 17:17 03/15/17 18:17 03/15/17 18:43 Range/Units Urine Color YELLOW Urine Appearance CLEAR CLEAR Urine pH 5.0 4.5-7.5 Urine Specific [place] 1.013 1.000-1.030 Urine Protein NEG NEG Urine Glucose (UA) NEG NEG Urine Ketones NEG NEG Urine Occult Blood NEG NEG Urine Nitrite NEG NEG Urine Bilirubin NEG NEG Urine Urobilinogen NEG NEG Urine Leukocyte Esterase NEG NEG Microbiology Results 03/15/17 MRSA DNA Surveillance Screen, Received Pending Impression Assessment and Plan 86yo female with PMHs of lung cancer / NSCLC, recently treated for pneumonia and pleural effusions. Has bilateral pleural catheters placed in October 2016 and in Dec 2016 most recent admission was on 02/20/17 and discharged 03/01 Dr. Blair performed 3 day alteplase/dornase protocol. CT of the chest on showed significant improvement of the effusions. she also was found to have klebsiella UTI and was treated with rocephin x 3 days, and pt was sent out on cipro x 4 more days to complete a week long course. She was stable for discharge to [facility] and was doing well until the night before last. she developed severe SOB that got progressively worse. last night staff at [facility] transferred her to [facility] for evaluation. she was given cefepime and vancomycin there she was transferred here as Dr. Blair can evaluate her tomorrow Acute hypoxic respiratory failure, multifactorial as below b/l transudative pleural effusions - s/p pleurX catheters in the past HTN crisis flash pulmonary edema recent klebsiella UTI VALORIE lung cancer - NSCLC -S/P chemotherapy acute COPD exacerbation. 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 Acute on chronic CHF exacerbatin / type is unspecified Anxiety/depression - cont outpatient meds. gout - no flare at this time. protein calorie malnutrition - moderate - boost BID. anemia - likely of chronic diseases abdominal discomfort 2nd to use of abdominal muscle in breathing Plan: NPO except meds and ice chips CTA chest to R/O PE and F/U on effusions, after stabilizing renal function / mucomyst oral / repeat renal function repeat renal function test now, was 1.2 at [facility] , if stable or better , we can pursu with CTA chest and DC heparin drip if no PE Lasix drip [place] I/Os NTG patch and SL, if needed NTG drip Hydralazine IV prn systolic > 180 BIPAP 12/4 O2 supplement Diazepam for anxiety consult pulmnologist empiric vanco/cefepime/Azithro lactinex for c dif prophylaxis sputum Cx/ blood Cx/ urine legionella/strept UA w U cx pepcid IV for GI prophylaxis Dr. Blair consult DVT proph - heparin drip , if no PE switch to SQ TID Goals of care D/W patient she wants everything to be done except intubation and resuscitation she was made DNR/DNI with active medical management Advanced Directives Existing Living Will: Yes Existing Power of Global President: Yes VTE Prophylaxis VTE Risk Assessment Done? Y/N: Yes Risk Level: Not Assessed
[2017-03-15] MEDS ORDERED: HEPARIN 25,000 UNIT/500ML D5W 500 ML IV PRN (19:30)
[2017-03-15] MEDS ORDERED: VANCOMYCIN INJ 1,000 MG in SODIUM CHLORIDE 0.9% 250ML 250 ML IV SCH (19:30)
[2017-03-15] MEDS: AMLODIPINE BESYLATE 5 MG TAB PO SCH (19:43)
[2017-03-15] MEDS: METOPROLOL SUCC 50MG EXT REL TAB PO SCH (19:43)
[2017-03-15] MEDS: BUDESONIDE 0.25 MG/2 ML VIAL (PULMICORT) INH SCH (19:43)
[2017-03-15] MEDS: HydrALAZINE 10 MG TAB PO SCH (19:43)
[2017-03-15] MEDS: LEVALBUTEROL 0.63MG/3 ML NEB INH SCH (19:43)
[2017-03-15] MEDS: IPRATROPIUM BROMIDE NEB SOLN 0.02% 2.5 ML VIAL INH SCH (19:43)
[2017-03-15] MEDS: CITALOPRAM 20 MG TAB PO SCH (19:44)
[2017-03-15 20:01] LABS: BUN/CREATININE RATIO 29.1 (10-20); CALCIUM 9.2 mg/dl (8.5-10.1); POTASSIUM 3.9 mmol/L (3.5-5.1)
[2017-03-15] MEDS ORDERED: NURSING VERBAL MED ORDER ONE ×2 (20:45→21:45)
--- NOTE | 2017-03-15 20:48 | Pharmacy Progress Note ---
Pharmacy Antibiotic Consult Date of Service: March 15, 2017. Pharmacy Dosing Scope Pharmacy is consulted to initiate VANCOMYCIN / CEFEPIME IV dosing therapy, order appropriate labs and adjust drug dose/frequency. Subjective The patient is a 86 year old female admitted on March 15, 2017 at 16:58. Objective Height (Feet): 5 Height (Inches): 3.00 Weight (Kilograms): 46.200 Lab Results (24hrs): Test 03/15/17 17:17 03/15/17 19:14 03/15/17 20:22 Urine Color YELLOW Urine Appearance CLEAR (CLEAR) Urine pH 5.0 (4.5-7.5) Urine Specific [place] 1.013 (1.000-1.030) Urine Protein NEG (NEG) Urine Glucose (UA) NEG (NEG) Urine Ketones NEG (NEG) Urine Occult Blood NEG (NEG) Urine Nitrite NEG (NEG) Urine Bilirubin NEG (NEG) Urine Urobilinogen NEG (NEG) Urine Leukocyte Esterase NEG (NEG) Sodium Level 136 mmol/L (136-145) Potassium Level 3.9 mmol/L (3.5-5.1) Chloride Level 102 mmol/L (98-107) Carbon Dioxide Level 26 mmol/L (21-32) Anion Gap 8.0 mmol/L (3-11) Blood Urea Nitrogen 29 mg/dl (7-18) Creatinine 1.00 mg/dl (0.60-1.20) Est Creatinine Clear Calc Drug Dose 30.0 ml/min Estimated GFR () 59.5 Estimated GFR (Non- 51.3 BUN/Creatinine Ratio 29.1 (10-20) Random Glucose 107 mg/dl (70-99) Calcium Level 9.2 mg/dl (8.5-10.1) Procalcitonin 1.34 ng/ml (0-0.5) Recent Pertinent Medications Item Value Date Time Azithromycin 500 255 ml @ 170 mls/hr 03/15/17 1900 mg/Dextrose DAILY@1900/IV 03/15/17 1915 Assessment & Plan 86yo female transferred from [facility] with pneumonia/UTI. PMH significant for recent lung cancer, recent treatment for pneumonia and pleural effusions, [place] resident. Rengal function is at baseline (SCr 1.0, CrCl ~30 ml/min). VANCOMYCIN: * Spoke with [facility], and confirmed that patient received VANCOMYCIN 500mg IV x 1 dose this morning at 0900. * Would estimate a peak of ~16 mcg/mL from that dose, based on a Vd of 0.7 L/kg. * Will start maintenance dose of VANCOMYCIN 700mg (15mg/kg) IV q30h now. * Patient will have received a total loading dose of 1200mg (~25mg/kg) over 2 doses today. * Goal trough level estimate: between 15 - 20 mcg/mL. * Estimated Pk parameters: Vd 0.7 L/kg Ke ~0.029 t1/2 ~24 hours * Due to advanced age, low body weight, and possibility for MDRO, will check a trough level prior to the second dose on 03/17/17 @ 0300 (before Css) to assess both accumulation and also efficacy. Pharmacy will continue to follow and will adjust dose/frequency as necessary. Thank you
[2017-03-15] MEDS: FAMOTIDINE IV INJ 20 MG in DEXTROSE 5% 100ML 100 ML IV SCH (20:58)
[2017-03-15] MEDS: METHYLPREDNISOLONE IV 60 MG in SYRINGE 0 ML IV SCH (20:59)
[2017-03-15] MEDS ORDERED: IPRATROPIUM BROMIDE NEB SOLN 0.02% 2.5 ML VIAL INH SCH (21:00)
[2017-03-15] MEDS ORDERED: OPTIRAY 320 IV PRN (21:00)
--- NOTE | 2017-03-15 21:24 | DIAGNOSTIC IMAGING REPORT ---
CHEST CTA for PULMONARY ARTERIES CT DOSE: 182.95 mGy.cm HISTORY: Chest pain dyspnea TECHNIQUE: Multiaxial CT images of the chest were performed following the intravenous administration of contrast to evaluate the pulmonary arteries. Maximal intensity projection images were also obtained. COMPARISON STUDY: 02/27/2017 FINDINGS: Pulmonary vasculature enhances appropriately. No evidence for major pulmonary embolus. Findings of progressive congestive failure. Increase in volume of bilateral pleural effusions. Nodularity similar to slightly progressive. Moderate increase in cardiac size compared to the prior study. IMPRESSION: 1. No evidence for pulmonary embolus. 2. Progressive bilateral pleural effusions. 3. Developing components of congestive heart failure. 4. Stable/slightly progressive parenchymal nodularity/mediastinal adenopathy. Electronically signed by: Leonidas Chaparro M.D. 03/15/2017 9:23 PM Dictated Date/Time: 03/15/2017 9:21 PM
[2017-03-15] MEDS: CEFEPIME IV 2000 MG in DEXTROSE 5% 100ML IV SCH (22:07)
[2017-03-15] MEDS: VANCOMYCIN INJ 700 MG in SODIUM CHLORIDE 0.9% 250ML 250 ML IV SCH (22:07)
[2017-03-16] VITALS (13 sets, daily range): BP systolic 106–168; BP diastolic 53–69; PULSE 63–88; TEMP 36.1–37.7; O2SAT 93–100
[2017-03-16] MEDS ORDERED: ACETAMINOPHEN 500 MG TAB PO PRN
[2017-03-16] MEDS: METHYLPREDNISOLONE IV 60 MG in SYRINGE 0 ML IV SCH ×4 (01:42→20:36)
[2017-03-16] MEDS: IPRATROPIUM BROMIDE NEB SOLN 0.02% 2.5 ML VIAL INH SCH ×4 (01:55→19:57)
[2017-03-16] MEDS: LEVALBUTEROL 0.63MG/3 ML NEB INH SCH ×4 (01:55→19:57)
[2017-03-16 05:34] LABS: BASO % 0.3 %; BASO ABS # 0.03 K/uL (0-0.2); COMPLETE YES; HEMATOCRIT 29.4 % (37-47); IG% 0.3 %; LYMPH % 3.8 %; LYMPH ABS # 0.42 K/uL (1.2-3.4); MEAN CELL VOLUME 92.7 fL (80-100); MEAN CORPUSCULAR HGB CONC 31.3 g/dl (32-36); MEAN PLATELET VOLUME 8.9 fL (7.4-10.4); MONO % 1.8 %; NEUT % 93.8 %; PLATELET COUNT 444 K/uL (130-400); RED BLOOD COUNT 3.17 M/uL (4.2-5.4); WHITE BLOOD COUNT 10.99 K/uL (4.8-10.8)
[2017-03-16] MEDS: HEPARIN SOD 5000 UNIT/0.5 ML CARP SQ SCH ×3 (05:49→22:22)
[2017-03-16 06:12] LABS: BUN/CREATININE RATIO 30.3 (10-20); CALCIUM 8.9 mg/dl (8.5-10.1); CREATININE 0.96 mg/dl (0.60-1.20); POTASSIUM 4.1 mmol/L (3.5-5.1)
[2017-03-16 06:15] LABS: ALB/GLOB RATIO 0.6 (0.9-2)
[2017-03-16] MEDS: BUDESONIDE 0.25 MG/2 ML VIAL (PULMICORT) INH SCH ×2 (07:24→19:57)
[2017-03-16] MEDS: ACETYLCYSTEINE 600 MG CAP PO SCH ×2 (08:18→20:36)
[2017-03-16] MEDS: HydrALAZINE 10 MG TAB PO SCH ×3 (08:19→20:37)
[2017-03-16] MEDS: METOPROLOL SUCC 50MG EXT REL TAB PO SCH (08:19)
[2017-03-16] MEDS: OMEGA-3 (PURIFIED FISH OIL) 1 GM CAP PO SCH (08:20)
[2017-03-16] MEDS: AMLODIPINE BESYLATE 5 MG TAB PO SCH (08:21)
[2017-03-16] MEDS: CYANOCOBALAMIN 500 MCG TAB (VIT B-12) PO SCH (08:21)
[2017-03-16] MEDS: ASPIRIN 81 MG ECTAB PO SCH (08:21)
[2017-03-16] MEDS: FAMOTIDINE IV INJ 20 MG in DEXTROSE 5% 100ML 100 ML IV SCH ×2 (08:33→20:37)
[2017-03-16] MEDS: OXYCODONE HCL IR 5 MG TAB (IMMEDIATE RELEASE) PO PRN ×3 (08:37→22:21)
[2017-03-16] MEDS ORDERED: SPIRONOLACTONE 25 MG TAB PO SCH (09:00)
[2017-03-16] MEDS ORDERED: FAMOTIDINE 20 MG TAB PO SCH (09:00)
[2017-03-16] MEDS ORDERED: NITROGLYCERIN 0.4 MG/HR PATCH TD SCH (09:00)
[2017-03-16] MEDS ORDERED: VANCOMYCIN 1GM/270ML NSS IV SCH (09:00)
[2017-03-16] MEDS: CEFEPIME IV 2000 MG in DEXTROSE 5% 100ML IV SCH ×2 (09:32→22:21)
--- NOTE | 2017-03-16 14:22 | Progress Note ---
Subjective Date of Service: March 16, 2017. Subjective Pt evaluation today including: conversation w/ patient, physical exam, chart review, lab review, review of studies, review of inpatient medication list Problem List Medical Problems: (1) Dyspnea Status: Acute (2) Hypoxia Status: Acute (3) Pulmonary edema Status: Acute Review of Systems Constitutional: No chills, No fatigue, No fever, No problem reported, No see HPI, No sweats, No weakness, No weight loss Eyes: No diplopia, No discharge, No eye pain, No problem reported, No redness, No see HPI, No worsening of vision ENT: No dental problems, No hearing loss, No nasal symptoms, No problem reported, No see HPI, No sore throat, No tinnitus, No trouble swallowing, No unusual epistaxis Respiratory: + dyspnea at rest, + dyspnea on exertion, + shortness of breath, No cough, No hemoptysis, No problem reported, No see HPI, No sputum, No wheezing Cardiac: No PND, No chest pain, No claudication, No edema, No orthopnea, No palpitations, No problem reported, No see HPI Abdomen: No GI bleeding, No constipation, No diarrhea, No nausea, No pain, No problem reported, No see HPI, No vomiting Musculoskeletal: No calf pain, No joint pain, No muscle pain, No problem reported, No see HPI, No swelling Female : No abnormal vaginal bleeding, No dysuria, No hematuria, No incontinence, No problem reported, No see HPI, No urinary frequency, No vaginal discharge Neurologic: No balance problems, No memory loss, No numbness/tingling, No paralysis, No problem reported, No see HPI, No vertigo, No weakness Psychiatric: No anhedonism, No anxiety, No depression symptoms, No insomnia, No problem reported, No see HPI, No substance abuse Heme: No abnormal bleeding/bruising, No clotting problems, No night sweats, No problem reported, No see HPI, No swollen lymph nodes Endo: No excessive thirst, No excessive urination, No fatigue, No problem reported, No see HPI Skin: No bleeding, No color change, No itch, No new/changing skin lesions, No problem reported, No rash, No see HPI Medications Current Inpatient Medications Medications (Trade) Dose Ordered Sig/Maeve Route Start Time Stop Time Status Last Admin Dose Admin Acetylcysteine 1200 mg 1,200 mg BID PO 03/15/17 19:00 03/18/17 09:01 03/16/17 08:18 1,200 MG Sodium Chloride (1/2 Nss 1000ml) 1,000 ml @ 15 mls/hr Q24H IV 03/15/17 18:15 04/14/17 18:14 03/15/17 19:14 15 MLS/HR Nitroglycerin (Nitrostat Tab) 0.4 mg PRN PRN SL 03/15/17 18:30 04/14/17 18:29 Nitroglycerin (Nitro-Dur 0.4 Mg/Hr Patch) 1 patch QAM TD 03/16/17 09:00 04/15/17 08:59 03/16/17 08:20 1 PATCH Miscellaneous 1 ea 1 ea DAILY@21 N/A 03/15/17 21:00 04/14/17 20:59 03/15/17 19:44 1 EA Azithromycin/ Dextrose (Zithromax IV/D5 250ml) 255 ml @ 170 mls/hr DAILY@1900 IV 03/15/17 19:00 03/22/17 18:59 03/15/17 19:15 170 MLS/HR Vancomycin HCl (Consult) 1 ea UD PRN N/A 03/15/17 19:00 04/14/17 18:59 Ipratropium [place] (Atrovent 0.02% 0.5MG/2.5ML Neb) 0.5 mg Q6R INH 03/15/17 21:00 04/14/17 20:59 03/16/17 01:55 0.5 MG Budesonide (Pulmicort Respules 0.25MG/ 2ML Neb Soln) 0.25 mg BIDR INH 03/15/17 20:00 04/14/17 19:59 03/15/17 19:43 0.25 MG Levalbuterol (Xopenex 0.63 Mg/ 3 Ml Neb) 0.63 mg Q6R INH 03/15/17 21:00 04/14/17 20:59 03/16/17 01:55 0.63 MG Hydralazine HCl (HydrALAZINE INJ) 20 mg Q8H PRN IV. 03/15/17 19:00 04/14/17 18:59 Acetaminophen (Tylenol Tab) 500 mg Q6H PRN PO 03/16/17 00:00 04/15/17 00:00 03/16/17 08:37 500 MG Amlodipine Besylate (Norvasc Tab) 10 mg DAILY PO 03/15/17 18:46 04/14/17 18:45 03/16/17 08:21 10 MG Aspirin (Ecotrin Tab) 81 mg QAM PO 03/16/17 09:00 04/15/17 08:59 03/16/17 08:21 81 MG Bisacodyl (Dulcolax Supp) 10 mg DAILY PRN MD 03/15/17 19:00 04/14/17 18:59 Citalopram Hydrobromide (celeXA TAB) 20 mg HS PO 03/15/17 21:00 04/14/17 20:59 03/15/17 19:44 20 MG Cyanocobalamin (Vitamin B-12 Tab) 2,000 mcg DAILY PO 03/16/17 09:00 04/15/17 08:59 03/16/17 08:21 2,000 MCG Diazepam (Valium Tab) 5 mg QID PRN PO 03/15/17 19:00 04/14/17 18:59 Fish Oil ([place]-3 (Purified Fish Oil) Cap) 1 gm DAILY PO 03/16/17 09:00 04/15/17 08:59 03/16/17 08:20 1 GM Hydralazine HCl (Apresoline Tab) 20 mg TID PO 03/15/17 21:00 04/14/17 20:59 03/16/17 13:54 20 MG Magnesium Hydroxide (Milk Of Magnesia Susp) 30 ml DAILY PRN PO 03/15/17 19:00 04/14/17 18:59 Metoprolol Succinate (Toprol Xl Tab) 50 mg DAILY PO 03/15/17 18:46 04/14/17 18:45 03/16/17 08:19 50 MG Oxycodone HCl (Roxicodone Immediate Rel Tab) 5 mg Q4H PRN PO 03/15/17 19:00 03/29/17 18:59 03/16/17 08:37 5 MG Spironolactone (Aldactone Tab) 25 mg QAM PO 03/16/17 09:00 04/15/17 08:59 03/16/17 08:22 25 MG Cefepime HCl 1 ea 1 ea UD PRN N/A 03/15/17 19:15 04/14/17 19:14 Famotidine 20 mg/ Dextrose 102 ml @ 200 mls/hr Q12H IV 03/15/17 20:00 04/14/17 19:59 03/16/17 08:33 200 MLS/HR Methylprednisolone Sodium Succinate 60 mg/Syringe 0.96 ml @ 1.5 mls/min Q6H IV 03/15/17 20:00 04/14/17 19:59 03/16/17 13:54 1.5 MLS/MIN Cefepime HCl 2000 mg/Dextrose 112.5 ml @ 225 mls/hr Q12H IV 03/15/17 22:00 03/22/17 21:59 03/16/17 09:32 225 MLS/HR Vancomycin HCl/ Sodium Chloride (Vancomycin Inj/ Nss 250ml) 264 ml @ 125 mls/hr Q30H IV 03/15/17 21:00 03/22/17 20:59 03/15/17 22:07 125 MLS/HR Ioversol (Optiray 320) 100 ml UD PRN IV 03/15/17 21:00 03/19/17 20:59 Heparin Sodium (Porcine) (Heparin Sq 5000 Unit/0.5ml) 5,000 unit Q8 SQ 03/16/17 06:00 04/15/17 05:59 03/16/17 13:55 5,000 UNIT Alteplase, Recombinant 20 mg 20 mg ONE ONCE IPL 03/16/17 15:00 03/16/17 15:01 Dornase Demetrius/ Syringe (Pulmozyme Inhalation Soln 2.5ml Amp/Syringe) 30 ml @ 0 mls/hr TODAY@1500,1510 IPL 03/16/17 15:00 03/16/17 15:11 Objective Vital Signs Date Time Temp Pulse Resp B/P Pulse Ox O2 Delivery O2 Flow Rate FiO2 03/16/17 11:45 BiPAP 15.0 50 03/16/17 11:12 36.8 69 20 142/53 100 BiPAP 03/16/17 08:15 BiPAP 15.0 50 03/16/17 07:43 77 18 97 BiPAP/CPAP 50 03/16/17 07:43 77 97 50 03/16/17 07:16 36.9 74 20 144/61 100 BiPAP 03/16/17 04:00 BiPAP 15.0 03/16/17 03:52 88 99 60 03/16/17 03:25 37.7 74 27 168/63 100 BiPAP 60 03/16/17 01:55 73 28 98 BiPAP/CPAP 03/16/17 01:55 73 98 70 03/16/17 00:26 36.1 73 23 150/69 100 BiPAP 70 03/16/17 00:00 BiPAP 15.0 03/15/17 21:54 75 98 70 03/15/17 21:33 71 18 150/61 99 BiPAP 03/15/17 20:10 36.7 83 22 176/75 95 BiPAP 03/15/17 20:00 96 BiPAP 15.0 03/15/17 19:46 73 30 97 BiPAP/CPAP 15.0 03/15/17 19:43 73 97 15.0 03/15/17 18:25 87 93 15.0 03/15/17 17:15 93 Diffusion Mask 10.0 03/15/17 17:00 36.7 77 32 185/63 86 Nasal Cannula 6.0 Physical Exam General Appearance: WD/WN, no apparent distress Eyes: normal inspection, EOMI ENT: normal ENT inspection, hearing grossly normal Neck: supple Respiratory/Chest: chest non-tender, + respiratory distress, + decreased breath sounds, + accessory muscle use, + crackles, + rales Cardiovascular: regular rate, rhythm, no edema, no gallop, no JVD Abdomen: normal bowel sounds, non tender, soft, no organomegaly Extremities: normal range of motion, non-tender, normal inspection, no pedal edema 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iatric: 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, no motor/sensory deficits, alert, normal mood/affect, oriented x 3 Skin: normal color, warm/dry, no rash Laboratory Results Last 24 Hours Test 03/15/17 17:17 03/15/17 19:14 03/16/17 05:12 Urine Color YELLOW Urine Appearance CLEAR Urine pH 5.0 Urine Specific [place] 1.013 Urine Protein NEG Urine Glucose (UA) NEG Urine Ketones NEG Urine Occult Blood NEG Urine Nitrite NEG Urine Bilirubin NEG Urine Urobilinogen NEG Urine Leukocyte Esterase NEG Sodium Level 136 mmol/L 135 mmol/L Potassium Level 3.9 mmol/L 4.1 mmol/L Chloride Level 102 mmol/L 102 mmol/L Carbon Dioxide Level 26 mmol/L 26 mmol/L Anion Gap 8.0 mmol/L 7.0 mmol/L Blood Urea Nitrogen 29 mg/dl 29 mg/dl Creatinine 1.00 mg/dl 0.96 mg/dl Est Creatinine Clear Calc Drug Dose 30.0 ml/min 31.2 ml/min Estimated GFR () 59.5 62.5 Estimated GFR (Non- 51.3 53.9 BUN/Creatinine Ratio 29.1 30.3 Random Glucose 107 mg/dl 139 mg/dl Calcium Level 9.2 mg/dl 8.9 mg/dl Procalcitonin 1.34 ng/ml White Blood Count 10.99 K/uL Red Blood Count 3.17 M/uL Hemoglobin 9.2 g/dL Hematocrit 29.4 % Mean Corpuscular Volume 92.7 fL Mean Corpuscular Hemoglobin 29.0 pg Mean Corpuscular Hemoglobin Concent 31.3 g/dl Platelet Count 444 K/uL Mean Platelet Volume 8.9 fL Neutrophils (%) (Auto) 93.8 % Lymphocytes (%) (Auto) 3.8 % Monocytes (%) (Auto) 1.8 % Eosinophils (%) (Auto) 0.0 % Basophils (%) (Auto) 0.3 % Neutrophils # (Auto) 10.31 K/uL Lymphocytes # (Auto) 0.42 K/uL Monocytes # (Auto) 0.20 K/uL Eosinophils # (Auto) 0.00 K/uL Basophils # (Auto) 0.03 K/uL RDW Standard Deviation 62.0 fL RDW Coefficient of Variation 18.1 % Immature Granulocyte % (Auto) 0.3 % Immature Granulocyte # (Auto) 0.03 K/uL Phosphorus Level 3.0 mg/dl Magnesium Level 2.0 mg/dl Total Bilirubin 0.4 mg/dl Aspartate Amino Transf (AST/SGOT) 16 U/L Alanine Aminotransferase (ALT/SGPT) 16 U/L Alkaline Phosphatase 73 U/L Total Protein 6.7 gm/dl Albumin 2.5 gm/dl Globulin 4.2 gm/dl Albumin/Globulin Ratio 0.6 Assessment and Plan 86yo female with PMHs of lung cancer / NSCLC, recently treated for pneumonia and pleural effusions. Has bilateral pleural catheters placed in October 2016 and in Dec 2016 most recent admission was on 02/20/17 and discharged 03/01 Dr. Blair performed alteplase/dornase protocol in the past on her. CT of the chest on 02/27 showed significant improvement of the effusions. 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 last night staff at [facility] transferred her to [facility] for evaluation. then she was transferred here for care Assessment Acute hypoxic respiratory failure, multifactorial as below b/l transudative pleural effusions - s/p pleurX catheters in the past HTN crisis flash pulmonary edema recent klebsiella UTI VALORIE lung cancer - NSCLC -S/P chemotherapy acute COPD exacerbation. 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 Acute on chronic CHF exacerbatin / type is unspecified Anxiety/depression - cont outpatient meds. gout - no flare at this time. protein calorie malnutrition - moderate - boost BID. anemia - likely of chronic diseases abdominal discomfort 2nd to use of abdominal muscle in breathing Plan: taper of BIPAP start diet S/P CTA chest , ruled out PE but showed worsening effusions and CHF, repeat renal function is good today mucomyst oral / repeat renal function continue Lasix 40 IV BID [place] I/Os NTG patch and SL, if needed NTG drip Hydralazine IV prn systolic > 180 BIPAP 12/4 O2 supplement Diazepam for anxiety consult pulmnologist continue vanco/cefepime/Azithro lactinex for c dif prophylaxis follow up sputum Cx/ blood Cx/ urine legionella/strept pepcid IV for GI prophylaxis Dr. Blair consult DVT proph - heparin SQ patient is DNR/DNI with active medical management
[2017-03-16] MEDS ORDERED: DORNASE ALFA (2500U) 2.5MG/2.5ML IPL ONE (15:00)
[2017-03-16] MEDS ORDERED: DORNASE ALFA (2500U) 2.5MG/2.5ML INH ONE (15:00)
[2017-03-16] MEDS ORDERED: ALTEPLASE, RECOMBINANT 1 MG/ML 2 ML VIAL IPL ONE (15:00)
[2017-03-16] MEDS ORDERED: ALTEPLASE, RECOMBINANT 1 MG/ML 2 ML VIAL IV ONE (15:00)
[2017-03-16] MEDS: DORNASE ALFA 2.5MG 5 ML in SYRINGE 25 ML IPL SCH ×2 (15:00→15:10)
--- NOTE | 2017-03-16 16:09 | Progress Note ---
Progress Note Date of Service March 16, 2017. Progress Note Attempted to drain both pleurx catheters this am--10 cc obtained from left, 0 cc from right. 10 mg TPA and 5 mg dornase placed in both catheters (1600)--RN to drain in 2 hours.
[2017-03-16] MEDS: AZITHROMYCIN IV 500 MG in DEXTROSE 5% 250ML 250 ML IV SCH (18:07)
[2017-03-16] MEDS: SODIUM CHLORIDE 0.45% 1000ML 1,000 ML IV SCH (18:07)
[2017-03-16] MEDS: CITALOPRAM 20 MG TAB PO SCH (20:37)
[2017-03-17] VITALS (12 sets, daily range): BP systolic 126–147; BP diastolic 59–66; PULSE 69–84; TEMP 36.4–36.9; O2SAT 92–98
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
[2017-03-17] MEDS: LEVALBUTEROL 0.63MG/3 ML NEB INH SCH ×4 (01:54→20:02)
[2017-03-17] MEDS: IPRATROPIUM BROMIDE NEB SOLN 0.02% 2.5 ML VIAL INH SCH ×4 (01:54→20:02)
[2017-03-17] MEDS: METHYLPREDNISOLONE IV 60 MG in SYRINGE 0 ML IV SCH ×2 (01:59→08:18)
--- NOTE | 2017-03-17 02:24 | SURGICAL CONSULTATION ---
DATE OF CONSULTATION: 03/16/2017 REASON FOR CONSULTATION: Increasing right pleural effusion. HISTORY OF PRESENT ILLNESS: This is a very sweet 86-year-old female who I met. I placed a right PleurX catheter and ended up then placing a left PleurX catheter. She has bilateral PleurX catheters in. She also has a left upper lobe nonsmall cell lung carcinoma which appeared to be early stage. This fluid is benign in both pleural cavities. Unfortunately, she has terrible coronary artery disease and is not felt to be stable for anything. She fell and broke her left hip and did undergo pinning. She was at a rehab facility. She presented back with increasing shortness of breath and was found to have loculated effusions. It should be noted on her last hospitalization, we did a MIST-2 protocol to get all the loculations broken out and a CT scan within the last 2 weeks looked quite good with very little fluid on either side. Unfortunately, she now has loculated fluid and her PleurX catheters are not working well. I was asked to comment on this. PAST MEDICAL HISTORY: 1. Nonsmall cell lung carcinoma left upper lobe (early stage). 2. Bilateral benign pleural effusions. 3. History of GI bleeding. 4. History of cigarette smoking in the past. 5. Hypertension. PAST SURGICAL HISTORY: 1. Insertion of bilateral PleurX catheters. 2. Childbirth. MEDICATIONS: Please see chart. ALLERGIES: Multiple, please see chart. SOCIAL HISTORY: The patient did smoke in the past. She is currently in a rehab facility. 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 Lives alone. Family is attentive. She does not smoke or drink. REVIEW OF SYSTEMS: The patient is recovering more from her hip and now she is becoming more short of breath because of pleural fluid. She denies weight loss. She is a tiny woman. She denies any neurologic symptoms. She has no focal deficits. PHYSICAL EXAMINATION: GENERAL: This is a very thin, frail elderly female who is awake, alert and oriented, in excellent spirits. HEENT: She wears glasses. Extraocular movements are intact. Pupils are equal, round and reactive. Tongue is midline. She has no oral mucosal lesions. NECK: Supple with no neck vein distention or carotid bruits. LUNGS: She has decreased breath sounds bilaterally without wheezing. HEART: She has regular rate and rhythm of her heart. ABDOMEN: Soft, nontender. She has no evidence of abdominal aortic aneurysm. EXTREMITIES: She does not really have peripheral edema, she has very little peripheral edema. Her feet are warm and well perfused. She has no joint effusions. NEUROLOGIC: She is awake, alert and oriented. ASSESSMENT AND PLAN: Bilateral loculated pleural effusions. We are going to institute the MIST-2 protocol tonight. Thank you very much.
[2017-03-17] MEDS ORDERED: VANCOMYCIN TROUGH SCH (02:30)
[2017-03-17] MEDS: VANCOMYCIN INJ 700 MG in SODIUM CHLORIDE 0.9% 250ML 250 ML IV SCH (03:31)
[2017-03-17 05:37] LABS: HEMATOCRIT 26.1 % (37-47); MEAN CELL VOLUME 91.3 fL (80-100); MEAN CORPUSCULAR HEMOGLOBIN 29.4 pg (25-34); MEAN CORPUSCULAR HGB CONC 32.2 g/dl (32-36); PLATELET COUNT 414 K/uL (130-400); RED BLOOD COUNT 2.86 M/uL (4.2-5.4); WHITE BLOOD COUNT 14.93 K/uL (4.8-10.8)
[2017-03-17] MEDS: HEPARIN SOD 5000 UNIT/0.5 ML CARP SQ SCH ×3 (05:46→21:57)
[2017-03-17 06:02] LABS: BASO % 0.1 %; BASO ABS # 0.01 K/uL (0-0.2); COMPLETE YES; IG% 0.3 %; LYMPH % 4.6 %; LYMPH ABS # 0.69 K/uL (1.2-3.4); MONO % 5.4 %; NEUT % 89.6 %
[2017-03-17 06:15] LABS: BUN/CREATININE RATIO 30.6 (10-20); CALCIUM 8.9 mg/dl (8.5-10.1); CREATININE 1.6 mg/dl (0.60-1.20); MAGNESIUM 2.2 mg/dl (1.8-2.4); POTASSIUM 4.3 mmol/L (3.5-5.1)
[2017-03-17 06:18] LABS: ALB/GLOB RATIO 0.6 (0.9-2); PHOSPHORUS 3.1 mg/dl (2.5-4.9)
[2017-03-17] MEDS ORDERED: DORNASE ALFA (2500U) 2.5MG/2.5ML INH ONE ×2 (06:30→14:00)
[2017-03-17] MEDS ORDERED: ALTEPLASE, RECOMBINANT 1 MG/ML 2 ML VIAL IPL ONE (06:30)
[2017-03-17] MEDS ORDERED: ALTEPLASE, RECOMBINANT 1 MG/ML 2 ML VIAL IPL SCH ×2 (06:30→14:00)
[2017-03-17] MEDS: DORNASE ALFA 2.5MG 5 ML in SYRINGE 25 ML IPL SCH ×3 (06:30→16:35)
[2017-03-17] MEDS ORDERED: DORNASE ALFA (2500U) 2.5MG/2.5ML IPL ONE ×2 (06:30→14:00)
[2017-03-17] MEDS ORDERED: ALTEPLASE, RECOMBINANT 1 MG/ML 2 ML VIAL IV ONE ×2 (06:30→14:00)
[2017-03-17] MEDS: BUDESONIDE 0.25 MG/2 ML VIAL (PULMICORT) INH SCH ×2 (07:10→20:00)
[2017-03-17] MEDS: ASPIRIN 81 MG ECTAB PO SCH (08:19)
[2017-03-17] MEDS: AMLODIPINE BESYLATE 5 MG TAB PO SCH (08:19)
[2017-03-17] MEDS: FAMOTIDINE 20 MG TAB PO SCH (08:20)
[2017-03-17] MEDS: ACETYLCYSTEINE 600 MG CAP PO SCH ×2 (08:21→21:56)
[2017-03-17] MEDS: CYANOCOBALAMIN 500 MCG TAB (VIT B-12) PO SCH (08:22)
[2017-03-17] MEDS: METOPROLOL SUCC 50MG EXT REL TAB PO SCH (08:23)
[2017-03-17] MEDS: OMEGA-3 (PURIFIED FISH OIL) 1 GM CAP PO SCH (08:24)
[2017-03-17] MEDS ORDERED: NURSING VERBAL MED ORDER ONE (08:45)
[2017-03-17] MEDS ORDERED: CEFEPIME CONSULT ACTIVE PRN ×2 (09:30)
[2017-03-17] MEDS ORDERED: CEFEPIME IV 1,000 MG in DEXTROSE 5% 100ML 100 ML IV SCH (10:00)
[2017-03-17] MEDS: METHYLPREDNISOLONE IV 40 MG in SYRINGE 0 ML IV SCH ×2 (10:19→18:01)
[2017-03-17] MEDS: SODIUM CHLORIDE 0.45% 1000ML 1,000 ML IV SCH (10:19)
[2017-03-17] MEDS: OXYCODONE HCL IR 5 MG TAB (IMMEDIATE RELEASE) PO PRN ×3 (10:24→21:58)
--- NOTE | 2017-03-17 11:53 | PROGRESS NOTE ---
DATE: 03/17/2017 PULMONARY PROGRESS NOTE PROBLEM LIST: Includes: 1. Left upper lobe lung CA, which is nonsmall cell. 2. Shortness of breath. 3. Loculated bilateral pleural effusion. 4. Coronary artery disease. SUBJECTIVE: This is a very pleasant 86-year-old female who was seen in room #230 and bed#1. She was admitted with shortness of breath secondary to lung CA and bilateral pleural effusions. Refer to Dr. Bear's consultation note for full past medical history. The patient reports today that she is doing better. She feels that her breathing is doing better. Dr. Blair and Boris Hu were in to see the patient in consultation yesterday for the pleural effusion. The patient has bilateral PleurX catheters in place, but unfortunately her pleural effusions became loculated again and the PleurX catheters were not draining. The patient had undergone a MIST-2 protocol in the past for loculations and was successful in breaking up the loculations, per Dr. Blair's note. Unfortunately, the loculations have recurred. The patient states that Boris Hu was in this morning to do the initial part of the procedure and did have one side drain recently and patient reports that she thinks that he got about 50 mL of fluid out, but she is not sure. She states that she feels that she is breathing better. She feels that she can take a deeper breath. She still has a little bit of cough. She has not noted any wheezing. She has not noted any chest heaviness or tightness. She denies any significant mucous production. She does have some chest discomfort, but it is improved compared to previous. She denies any other concerns or problems at present. No GI symptoms. No bowel symptoms. No swelling in her extremities. OBJECTIVE: GENERAL: The patient is an 86-year-old female lying in bed in no acute distress. She is alert and oriented x3. Mood is good. Affect is good. VITAL SIGNS: Temp 36.8, pulse 84, respirations 18, blood pressure is 147/63, pulse ox is in the 92-94% range on 4 liters. HEENT: Normocephalic, atraumatic. Pupils equal, round and reactive to light and accommodation. Extraocular movements are intact. Latimer moist gingival and buccal mucosa. NECK: Supple. No mass, no adenopathy, no bruit. CHEST: The patient has diminished breath sounds bilaterally, particularly at the bases. Also fine rales present bilaterally as well. No wheeze or rhonchi heard. CARDIOVASCULAR: Irregularly irregular. No murmurs, gallops or rubs appreciated. ABDOMEN: Bowel sounds present. Abdomen soft, nontender. No guarding, rigidity or organomegaly. EXTREMITIES: No erythema, no edema, no cyanosis or clubbing. NEUROLOGIC: Cranial nerves II through XII are intact. No focal deficits noted. LABORATORY DATA: Shows a white count of 14,000, H\T\H 8.4 and 26.1, platelet count of 414,000. Cultures are negative to this point for preliminaries. IMAGING DATA: No new imaging data. IMPRESSION: This is an 86-year-old female with known left upper lobe nonsmall cell lung cancer who has not had any treatment for this to this point. The patient was admitted due to shortness of breath and was found to have loculated pleural effusions bilaterally despite having PleurX catheters in place. At this time, thoracic service was consulted and Dr. Blair evaluated the patient, they are in the process of doing a MIST-2 protocol. The patient has had a little bit of fluid removed successfully at this time. In regards to her overall breathing, the patient is doing fairly well. She denies there is much shortness of breath and states that her breathing is improved. At this point, I think we can continue her medications as they are. I feel that we can probably decrease her steroids to b.i.d. at this time and see how she does in preparation for transition to oral. Continue rest of medications as they are. Will continue to follow through hospitalization. MARISOL
[2017-03-17 15:00] LABS: BUN/CREATININE RATIO 28.7 (10-20); CALCIUM 8.9 mg/dl (8.5-10.1); CREATININE 1.9 mg/dl (0.60-1.20); POTASSIUM 4.2 mmol/L (3.5-5.1)
[2017-03-17] MEDS ORDERED: SODIUM CHLORIDE 0.9% 250ML 250 ML IV SCH ×2 (17:00→18:00)
--- NOTE | 2017-03-17 17:11 | SURGERY PROGRESS NOTE ---
DATE: 03/17/2017 Mrs. Cedeño feels better today. She states that her breathing is better. We have instituted the MIST-2 protocol. She drained 500 mL total yesterday and a total of 625 so far today. She is responding well to that. On 6 liters, she has 96% saturation. We will see how her x-ray looks like in the morning.
--- NOTE | 2017-03-17 17:42 | Progress Note ---
Subjective Date of Service: March 17, 2017. Subjective Pt evaluation today including: conversation w/ patient, physical exam, chart review, lab review, review of studies, review of inpatient medication list Problem List Medical Problems: (1) Dyspnea Status: Acute (2) Hypoxia Status: Acute (3) Pulmonary edema Status: Acute Review of Systems Constitutional: No chills, No fatigue, No fever, No problem reported, No see HPI, No sweats, No weakness, No weight loss Eyes: No diplopia, No discharge, No eye pain, No problem reported, No redness, No see HPI, No worsening of vision ENT: No dental problems, No hearing loss, No nasal symptoms, No problem reported, No see HPI, No sore throat, No tinnitus, No trouble swallowing, No unusual epistaxis Respiratory: + cough, + dyspnea at rest, + dyspnea on exertion, + shortness of breath Cardiac: No PND, No chest pain, No claudication, No edema, No orthopnea, No palpitations, No problem reported, No see HPI Abdomen: No GI bleeding, No constipation, No diarrhea, No nausea, No pain, No problem reported, No see HPI, No vomiting Musculoskeletal: No calf pain, No joint pain, No muscle pain, No problem reported, No see HPI, No swelling Neurologic: No balance problems, No memory loss, No numbness/tingling, No paralysis, No problem reported, No see HPI, No vertigo, No weakness Psychiatric: No anhedonism, No anxiety, No depression symptoms, No insomnia, No problem reported, No see HPI, No substance abuse Heme: No abnormal bleeding/bruising, No clotting problems, No night sweats, No problem reported, No see HPI, No swollen lymph nodes Endo: No excessive thirst, No excessive urination, No fatigue, No problem reported, No see HPI Skin: No bleeding, No color change, No itch, No new/changing skin lesions, No problem reported, No rash, No see HPI Medications Current Inpatient Medications Medications (Trade) Dose Ordered Sig/Maeve Route Start Time Stop Time Status Last Admin Dose Admin Acetylcysteine (Acetylcysteine Cap) 1,200 mg BID PO 03/15/17 19:00 03/18/17 09:01 03/17/17 08:21 1,200 MG Nitroglycerin 0.4 mg 0.4 mg PRN PRN SL 03/15/17 18:30 04/14/17 18:29 Azithromycin/ Dextrose (Zithromax IV/D5 250ml) 255 ml @ 170 mls/hr DAILY@1900 IV 03/15/17 19:00 03/22/17 18:59 03/16/17 18:07 170 MLS/HR Ipratropium [place] (Atrovent 0.02% 0.5MG/2.5ML Neb) 0.5 mg Q6R INH 03/15/17 21:00 04/14/17 20:59 03/17/17 14:25 0.5 MG Budesonide (Pulmicort Respules 0.25MG/ 2ML Neb Soln) 0.25 mg BIDR INH 03/15/17 20:00 04/14/17 19:59 03/17/17 07:10 0.25 MG Levalbuterol (Xopenex 0.63 Mg/ 3 Ml Neb) 0.63 mg Q6R INH 03/15/17 21:00 04/14/17 20:59 03/17/17 14:25 0.63 MG Hydralazine HCl (HydrALAZINE INJ) 20 mg Q8H PRN IV. 03/15/17 19:00 04/14/17 18:59 Acetaminophen (Tylenol Tab) 500 mg Q6H PRN PO 03/16/17 00:00 04/15/17 00:00 03/16/17 08:37 500 MG Amlodipine Besylate (Norvasc Tab) 10 mg DAILY PO 03/15/17 18:46 04/14/17 18:45 03/17/17 08:19 10 MG Aspirin (Ecotrin Tab) 81 mg QAM PO 03/16/17 09:00 04/15/17 08:59 03/17/17 08:19 81 MG Bisacodyl (Dulcolax Supp) 10 mg DAILY PRN MN 03/15/17 19:00 04/14/17 18:59 Citalopram Hydrobromide (celeXA TAB) 20 mg HS PO 03/15/17 21:00 04/14/17 20:59 03/16/17 20:37 20 MG Cyanocobalamin (Vitamin B-12 Tab) 2,000 mcg DAILY PO 03/16/17 09:00 04/15/17 08:59 03/17/17 08:22 2,000 MCG Diazepam (Valium Tab) 5 mg QID PRN PO 03/15/17 19:00 04/14/17 18:59 Fish Oil ([place]-3 (Purified Fish Oil) Cap) 1 gm DAILY PO 03/16/17 09:00 04/15/17 08:59 03/17/17 08:24 1 GM Magnesium Hydroxide (Milk Of Magnesia Susp) 30 ml DAILY PRN PO 03/15/17 19:00 04/14/17 18:59 Metoprolol Succinate (Toprol Xl Tab) 50 mg DAILY PO 03/15/17 18:46 04/14/17 18:45 03/17/17 08:23 50 MG Oxycodone HCl (Roxicodone Immediate Rel Tab) 5 mg Q4H PRN PO 03/15/17 19:00 03/29/17 18:59 03/17/17 10:24 5 MG Ioversol (Optiray 320) 100 ml UD PRN IV 03/15/17 21:00 03/19/17 20:59 Heparin Sodium (Porcine) 5000 unit 5,000 unit Q8 SQ 03/16/17 06:00 04/15/17 05:59 03/17/17 14:31 5,000 UNIT Methylprednisolone Sodium Succinate/ Syringe (Solu-Medrol IV/ Syringe) 0.64 ml @ 1.5 mls/min Q8H IV 03/17/17 10:00 04/16/17 09:59 03/17/17 10:19 1.5 MLS/MIN Famotidine (Pepcid Tab) 20 mg QAM PO 03/17/17 09:00 04/16/17 08:59 03/17/17 08:20 20 MG Alteplase, Recombinant 20 mg 20 mg TODAY@1400 IPL 03/17/17 14:00 03/17/17 23:59 Dornase Demetrius/ Syringe (Pulmozyme Inhalation Soln 2.5ml Amp/Syringe) 30 ml @ 0 mls/hr TODAY@1400,1401 IPL 03/17/17 14:00 03/17/17 23:59 Cefepime HCl 1 ea 1 ea UD PRN N/A 03/17/17 09:30 04/16/17 09:29 Cefepime HCl 2000 mg/Dextrose 112.5 ml @ 225 mls/hr Q24H IV 03/17/17 22:00 03/22/17 21:59 Sodium Chloride 250 ml @ 0 mls/hr Q0M IV 03/17/17 17:00 03/17/17 17:59 UNV Sodium Chloride 250 ml @ 0 mls/hr Q0M IV 03/17/17 18:00 03/17/17 18:59 UNV Sodium Chloride (Nss 1000ml) 1,000 ml @ 100 mls/hr Q10H IV 03/17/17 17:15 04/16/17 17:14 UNV Objective Vital Signs Date Time Temp Pulse Resp B/P Pulse Ox O2 Delivery O2 Flow Rate FiO2 03/17/17 15:14 36.6 80 21 133/64 96 Nasal Cannula 6.0 03/17/17 14:25 80 22 94 Nasal Cannula 6.0 03/17/17 12:00 95 Nasal Cannula 4.0 03/17/17 10:59 36.7 82 18 143/60 95 Nasal Cannula 6.0 03/17/17 08:00 92 Nasal Cannula 4.0 03/17/17 07:28 36.8 84 18 147/63 92 Nasal Cannula 4.0 03/17/17 07:11 81 22 92 Nasal Cannula 4.0 03/17/17 04:00 Nasal Cannula 4.0 03/17/17 03:24 36.9 78 16 135/59 94 Nasal Cannula 2.0 03/17/17 00:00 Nasal Cannula 4.0 03/16/17 23:10 36.7 78 16 118/57 95 Nasal Cannula 2.0 03/16/17 20:00 Nasal Cannula 4.0 03/16/17 19:57 71 16 97 Nasal Cannula 3.0 03/16/17 19:48 36.9 79 20 106/55 96 Nasal Cannula 3.0 Physical Exam General Appearance: WD/WN, no apparent distress Eyes: normal inspection, EOMI ENT: normal ENT inspection, hearing grossly normal Neck: supple Respiratory/Chest: chest non-tender, + respiratory distress, + decreased breath sounds, + accessory muscle use, + crackles Cardiovascular: regular rate, rhythm, no edema, no gallop, no JVD, no murmur Abdomen: normal bowel sounds, non tender, soft, no organomegaly Extremities: normal range of motion, non-tender, normal inspection, no pedal edema 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iatric: 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, no motor/sensory deficits, alert, normal mood/affect, oriented x 3 Skin: normal color, warm/dry, no rash Laboratory Results Last 24 Hours Test 03/17/17 02:23 03/17/17 05:19 03/17/17 14:21 03/17/17 17:21 Vancomycin Level Trough 8.9 mcg/ml White Blood Count 14.93 K/uL Red Blood Count 2.86 M/uL Hemoglobin 8.4 g/dL Hematocrit 26.1 % Mean Corpuscular Volume 91.3 fL Mean Corpuscular Hemoglobin 29.4 pg Mean Corpuscular Hemoglobin Concent 32.2 g/dl Platelet Count 414 K/uL Mean Platelet Volume 9.0 fL Neutrophils (%) (Auto) 89.6 % Lymphocytes (%) (Auto) 4.6 % Monocytes (%) (Auto) 5.4 % Eosinophils (%) (Auto) 0.0 % Basophils (%) (Auto) 0.1 % Neutrophils # (Auto) 13.38 K/uL Lymphocytes # (Auto) 0.69 K/uL Monocytes # (Auto) 0.81 K/uL Eosinophils # (Auto) 0.00 K/uL Basophils # (Auto) 0.01 K/uL RDW Standard Deviation 60.4 fL RDW Coefficient of Variation 17.9 % Immature Granulocyte % (Auto) 0.3 % Immature Granulocyte # (Auto) 0.04 K/uL Red Blood Cell Morphology Unremarkable Sodium Level 133 mmol/L 132 mmol/L Potassium Level 4.3 mmol/L 4.2 mmol/L Chloride Level 101 mmol/L 100 mmol/L Carbon Dioxide Level 24 mmol/L 22 mmol/L Anion Gap 8.0 mmol/L 10.0 mmol/L Blood Urea Nitrogen 49 mg/dl 55 mg/dl Creatinine 1.60 mg/dl 1.90 mg/dl Est Creatinine Clear Calc Drug Dose 18.2 ml/min 15.3 ml/min Estimated GFR () 33.7 27.4 Estimated GFR (Non- 29.1 23.6 BUN/Creatinine Ratio 30.6 28.7 Random Glucose 148 mg/dl 149 mg/dl Calcium Level 8.9 mg/dl 8.9 mg/dl Phosphorus Level 3.1 mg/dl Magnesium Level 2.2 mg/dl Total Bilirubin 0.2 mg/dl Aspartate Amino Transf (AST/SGOT) 13 U/L Alanine Aminotransferase (ALT/SGPT) 14 U/L Alkaline Phosphatase 63 U/L Total Protein 6.4 gm/dl Albumin 2.5 gm/dl Globulin 3.9 gm/dl Albumin/Globulin Ratio 0.6 Assessment and Plan 86yo female with PMHs of lung cancer / NSCLC, recently treated for pneumonia and pleural effusions. Has bilateral pleural catheters placed in October 2016 and in Dec 2016 most recent admission was on 02/20/17 and discharged 03/01 Dr. Blair performed alteplase/dornase protocol in the past on her. CT of the chest on 02/27 showed significant improvement of the effusions. 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 last night staff at [facility] transferred her to [facility] for evaluation. then she was transferred here for care Assessment Acute hypoxic respiratory failure, multifactorial as below VANNESSA (multi factorial, contrast and lasix ) HTN crisis flash pulmonary edema recent klebsiella UTI VALORIE lung cancer - NSCLC -S/P chemotherapy acute COPD exacerbation. 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 Acute on chronic CHF exacerbatin / type is unspecified Anxiety/depression - cont outpatient meds. gout - no flare at this time. protein calorie malnutrition - moderate - boost BID. anemia - likely of chronic diseases abdominal discomfort 2nd to use of abdominal muscle in breathing Plan: S/P institution of the MIST-2 protocol. drained 500 mL total yesterday and a total of 625 so far today. currently off BIPAP DC lasix start NSS at 100cc/hr renal us consult mechanical technical service specialist start diet S/P CTA chest , ruled out PE but showed worsening effusions and CHF, repeat renal function is good today mucomyst oral austin I/Os NTG patch and SL, if needed NTG drip Hydralazine IV prn systolic > 180 O2 supplement Diazepam for anxiety consult pulmnologist appreciated continue cefepime/Azithro DC vanco lactinex for c dif prophylaxis follow up sputum Cx/ blood Cx/ urine legionella/strept pepcid IV for GI prophylaxis Dr. Blair consult appreciated Dr. Bear consult appreciated DVT proph - heparin SQ patient is DNR/DNI with active medical management
[2017-03-17] MEDS: SODIUM CHLORIDE 0.9% 1000ML 1,000 ML IV SCH (17:59)
[2017-03-17] MEDS: AZITHROMYCIN IV 500 MG in DEXTROSE 5% 250ML 250 ML IV SCH (19:28)
--- NOTE | 2017-03-17 20:31 | DIAGNOSTIC IMAGING REPORT ---
RENAL ULTRASOUND HISTORY: Renal insufficiency renal failure COMPARISON: None. FINDINGS: Right kidney: Maximum dimension 11.1 cm. Several small sub-5 mm cyst. No evidence for hydronephrosis. Normal corticomedullary differentiation and cortical thickness. Left kidney: Maximum dimension 9.2 cm. Several small cysts measuring up to 2 cm. No evidence for hydronephrosis. Normal corticomedullary differentiation and cortical thickness. Bladder: No bladder wall thickening. The bilateral ureteral jets were identified. IMPRESSION: Several small renal cysts bilaterally. No evidence for hydronephrosis. Electronically signed by: Leonidas Chaparro M.D. 03/17/2017 8:29 PM Dictated Date/Time: 03/17/2017 8:29 PM
[2017-03-17] MEDS: CITALOPRAM 20 MG TAB PO SCH (21:56)
[2017-03-17] MEDS: CEFEPIME IV 2000 MG in DEXTROSE 5% 100ML IV SCH (21:56)
[2017-03-17 22:42] LABS: URINE APPEARANCE CLEAR (CLEAR); URINE BILIRUBIN NEG (NEG); URINE COLOR YELLOW; URINE EPITHELIAL CELL AUTO >30 /lpf (0-5); URINE NITRITE NEG (NEG); URINE SPECIFIC GRAVITY 1.023 (1.000-1.030); UROBILINOGEN NEG (NEG)
[2017-03-17 22:46] LABS: MANUAL MICROSCOPIC REQUIRED? NO; REVIEW REQ? YES
[2017-03-18] VITALS (17 sets, daily range): BP systolic 101–157; BP diastolic 51–73; PULSE 61–84; TEMP 36.3–36.7; O2SAT 91–98
[2017-03-18] MEDS: METHYLPREDNISOLONE IV 40 MG in SYRINGE 0 ML IV SCH ×3 (01:43→17:06)
[2017-03-18] MEDS: IPRATROPIUM BROMIDE NEB SOLN 0.02% 2.5 ML VIAL INH SCH ×4 (02:04→20:01)
[2017-03-18] MEDS: LEVALBUTEROL 0.63MG/3 ML NEB INH SCH ×4 (02:04→20:01)
[2017-03-18] MEDS: HEPARIN SOD 5000 UNIT/0.5 ML CARP SQ SCH ×3 (06:05→22:33)
[2017-03-18] MEDS: OXYCODONE HCL IR 5 MG TAB (IMMEDIATE RELEASE) PO PRN ×3 (06:07→19:52)
[2017-03-18] MEDS: SODIUM CHLORIDE 0.9% 1000ML 1,000 ML IV SCH ×2 (06:07→14:44)
[2017-03-18] MEDS ORDERED: ALTEPLASE, RECOMBINANT 1 MG/ML 2 ML VIAL IPL SCH (06:30)
[2017-03-18] MEDS ORDERED: ALTEPLASE, RECOMBINANT 1 MG/ML 2 ML VIAL IV ONE (06:30)
[2017-03-18] MEDS ORDERED: DORNASE ALFA 2.5MG 5 ML in SYRINGE 25 ML IPL SCH (06:30)
[2017-03-18] MEDS ORDERED: DORNASE ALFA (2500U) 2.5MG/2.5ML IPL ONE (06:30)
[2017-03-18] MEDS ORDERED: DORNASE ALFA (2500U) 2.5MG/2.5ML INH ONE (06:30)
[2017-03-18] MEDS: BUDESONIDE 0.25 MG/2 ML VIAL (PULMICORT) INH SCH ×2 (07:10→20:01)
[2017-03-18 08:27] LABS: BUN/CREATININE RATIO 39.9 (10-20); CREATININE 1.6 mg/dl (0.60-1.20); POTASSIUM 4.1 mmol/L (3.5-5.1)
[2017-03-18 08:33] LABS: CALCIUM 8.8 mg/dl (8.5-10.1)
[2017-03-18] MEDS ORDERED: NURSING VERBAL MED ORDER ONE (09:00)
[2017-03-18] MEDS: ACETYLCYSTEINE 600 MG CAP PO SCH (09:10)
[2017-03-18] MEDS: AMLODIPINE BESYLATE 5 MG TAB PO SCH (09:11)
[2017-03-18] MEDS: ASPIRIN 81 MG ECTAB PO SCH (09:11)
[2017-03-18] MEDS: OMEGA-3 (PURIFIED FISH OIL) 1 GM CAP PO SCH (09:12)
[2017-03-18] MEDS: METOPROLOL SUCC 50MG EXT REL TAB PO SCH (09:13)
[2017-03-18] MEDS: FAMOTIDINE 20 MG TAB PO SCH (09:14)
[2017-03-18] MEDS ORDERED: IPRATROPIUM BROMIDE NEB SOLN 0.02% 2.5 ML VIAL INH PRN (09:15)
[2017-03-18] MEDS: CYANOCOBALAMIN 500 MCG TAB (VIT B-12) PO SCH (09:20)
--- NOTE | 2017-03-18 09:53 | Clinical Documentation Query ---
CLINICAL DOCUMENTATION QUERY Dr. JAUREGUI, In your clinical opinion is this patient being managed for: (X ) Acute on chronic (likely) diastolic CHF ( ) Other explanation of clinical findings (Please Explain) ( ) Unable to determine (Please Define) ( ) Need to Discuss ( ) Not Agree The medical record reflects the following clinical findings, treatment, and risk factors. Clinical Indicators: 86 yo female presenting with severe dyspnea. Documentation of acute on chronic CHF with type unknown. No ECHO available for review in [facility] system. Treatment: telemetry, pulmonary consult, IV lasix, aldactone, nitrodur patch, apresoline Risk Factors: age, HTN, lung cancer, CKD, respiratory failure, pulmonary edema Please clarify and document your clinical opinion in the progress notes and discharge summary. Terms such as "probable", "suspected", "likely", "questionable", "possible", or "still to be ruled out" are acceptable. IF IN AGREEMENT, YOU MUST DOCUMENT ABOVE DIAGNOSTIC STATEMENT IN DAILY PROGRESS NOTES AND DISCHARGE SUMMARY. This document is not part of the patient's record. Thank You, Paola White, LATESHA [phone]
--- NOTE | 2017-03-18 10:03 | DIAGNOSTIC IMAGING REPORT ---
CHEST ONE VIEW PORTABLE CLINICAL HISTORY: Pleural Effusion COMPARISON STUDY: 02/26/2017 FINDINGS: The heart remains enlarged. Bilateral pleural drainage catheters are again evident. There are small bilateral pleural effusions. There are persistent bilateral pulmonary airspace opacities which appear progressive in the lower lung zones.[ An element of congestive heart failure must be considered. IMPRESSION: 1. Slight progression in the nonspecific bilateral pulmonary airspace opacities 2. Persistent bilateral pleural effusions and bilateral pleural drainage catheters. Electronically signed by: Chris Carlos M.D. 03/18/2017 10:01 AM Dictated Date/Time: 03/18/2017 10:00 AM
[2017-03-18] MEDS ORDERED: POLYETHYLENE (MIRALAX) 17 GM PACK PO ONE (11:22)
--- NOTE | 2017-03-18 11:56 | PROGRESS NOTE ---
DATE: 03/18/2017 DATE: 03/18/2017. PROBLEM LIST: Includes: 1. Left upper lobe of lung cancer which is nonsmall cell. 2. Shortness of breath. 3. Loculated bilateral pleural effusion. 4. Coronary artery disease. SUBJECTIVE: The patient reports that she is a little bit more short of breath today. She states it is not bad. She just noticed it this morning. She states that she slept well last night and did not have any problems overnight. She states that she woke up and she has a little bit more difficulty breathing. She is not having increased cough. She is not having increased chest congestion or tightness. She does not have any chest heaviness. She just feels like she cannot get a complete breath like she had been doing. She states that Henrry Hu was in and they are continuing to do the MIST-2 protocol. She is not sure how much fluid the got out. She states that she did get fluid out both last night and this morning. She is not having any other concerns. No headache or lightheadedness. No fever or chills. No chest pain. No palpitations. She states her appetite is normal. She does state that she has not moved her bowels in several days. She states that she normally takes Senokot at home and has not been taking anything that she is aware of in here. She states that she is passing air without difficulty. She is not having any difficulty voiding. She is not having any difficulty with swelling in her extremities. OBJECTIVE: GENERAL: The patient is an 86-year-old female in no acute distress. She is alert and oriented x3, lying in bed, does not appear in any acute respiratory distress. She is completing sentences without shortness of breath. She is alert and oriented. Mood and affect are good. VITAL SIGNS: Temp 36.5, pulse 73, respiration 18, blood pressure is 148/68, pulse ox 94% on 4 liters. HEAD, EYES, EARS, NOSE, AND THROAT: Normocephalic, atraumatic. Pupils equal, round and reactive to light and accommodation, nonicteric. NECK: Short, thick. There is no mass. No adenopathy. No bruit. CHEST: Diminished breath sounds but really do not appreciate any significant wheeze or rhonchi. There may be some bibasilar rales. CARDIOVASCULAR: Regular rate and rhythm. There are no murmurs, gallops or rubs noted. ABDOMEN: Bowel sounds are present, slightly hypoactive. She does have some mild fullness and mild discomfort to palpation in the upper quadrants bilaterally. There is no guarding, rigidity or organomegaly. EXTREMITIES: No erythema, no edema noted. LABORATORY DATA: BUN 64, creatinine 1.6. Chest x-ray shows bilateral pulmonary airspace opacities, persistent bilateral pleural effusion, question of some congestive changes at the bases as well. IMPRESSION: 1. Nonsmall cell lung cancer in the left lobe. The patient has not received any treatment for this. No significant change at this point. 2. Bilateral pleural effusions. The patient is currently undergoing MIST-2 protocol by thoracic service with continued administration of dornase and alteplase. The patient has had some return from this. From what I can gather thoracic service is continuing to follow. 3. Some changes on chest x-ray. It appears that it may be more fluid possibly. I think at this point, would like to give the patient a single dose of Lasix. Her weight has gone from 44.8 kilos to 47.9 kilos from March 17 through March 18. At this point will institute Lasix 20 mg IV x1 to see if we can diuresis any of the fluid off. 4. Increased shortness of breath. This may be due to congestive changes. I also feel that her constipation is playing a role in this. . She has not moved her bowels in several days. I would like to get an abdominal x-ray. I would also like to start her on some MiraLax and Senokot and see if this helps to stimulate the bowels. She normally takes Senokot at home. Would also like to get a chest x-ray in the morning for followup on the shortness of breath and congestive changes. We will continue to follow through hospitalization.
[2017-03-18] MEDS ORDERED: FUROSEMIDE INJ 20 MG in SYRINGE 0 ML IV ONE ×2 (12:00→16:15)
--- NOTE | 2017-03-18 12:47 | Progress Note ---
Progress Note Date of Service March 17, 2017. Progress Note 10 mg TPA and 5 mg dornase placed in each pleurex approx 0800. RN drained 2 hours later. 10 mg TPA anfd 5 mg dornase placed in each pleurex at approx 1630. RN to drain in 2 hours.
--- NOTE | 2017-03-18 13:51 | DIAGNOSTIC IMAGING REPORT ---
ABDOMEN 2 VIEWS CLINICAL HISTORY: constipation, upper quadrant tenderness COMPARISON STUDY: 02/25/2017 FINDINGS: Supine and decubitus views of the abdomen are provided for interpretation. There are postprocedural changes of a prior L3 vertebroplasty. There are postsurgical changes within the left hip. There are advanced arthritic changes in the right hip. There is no athletic bowel dilatation. There is scattered stool within the colon. IMPRESSION: Mild to moderate scattered stool within the colon. No evidence of bowel obstruction. No evidence of free air. Electronically signed by: Chris Carlos M.D. 03/18/2017 1:49 PM Dictated Date/Time: 03/18/2017 1:47 PM
[2017-03-18 14:30] LABS: LEGIONELLA ANTIGEN NOT DETECTED (NOT DETECTED)
--- NOTE | 2017-03-18 14:34 | SURGERY PROGRESS NOTE ---
DATE: 03/18/2017 Ms. Cedeño was seen today. She states that she does not feel well. She states that she feels "dense" in her chest. Her x-ray does show some opacities. I think that her pleural effusions are a bit better. I do not think these were causing much in the way of a clinical impairment. She is complaining of some abdominal discomfort also. KUB was unremarkable. ASSESSMENT AND PLAN: Bilateral pleural effusions. We are going to stop the TPA and Pulmozyme at this point. This is now day #3. I want to see how she does over the next few days, but at this point I am a bit happy with her from a radiographic standpoint. We will see how she does clinically. MARISOL
--- NOTE | 2017-03-18 15:56 | Progress Note ---
Subjective Date of Service: March 18, 2017. Subjective Pt evaluation today including: conversation w/ patient, physical exam, chart review, lab review, review of studies, review of inpatient medication list Problem List Medical Problems: (1) Dyspnea Status: Acute (2) Hypoxia Status: Acute (3) Pulmonary edema Status: Acute Review of Systems Constitutional: No chills, No fever Respiratory: + shortness of breath, No cough, No sputum Cardiac: No chest pain, No orthopnea Abdomen: + constipation, No diarrhea, No nausea, No pain Musculoskeletal: No joint pain, No muscle pain Female : No dysuria, No urinary frequency Objective Vital Signs Date Time Temp Pulse Resp B/P Pulse Ox O2 Delivery O2 Flow Rate FiO2 03/18/17 15:53 36.5 76 20 147/65 91 Nasal Cannula 2.0 03/18/17 14:05 76 18 93 Nasal Cannula 2.0 03/18/17 12:00 94 Nasal Cannula 4.0 03/18/17 11:37 36.3 69 18 150/62 96 Nasal Cannula 2.0 03/18/17 10:22 74 18 97 Nasal Cannula 4.0 03/18/17 08:00 94 Nasal Cannula 4.0 03/18/17 07:29 36.5 73 18 148/68 94 Nasal Cannula 4.0 03/18/17 07:11 84 18 97 Nasal Cannula 4.0 03/18/17 04:12 36.7 78 18 157/73 95 Nasal Cannula 4.0 03/18/17 04:00 98 Nasal Cannula 4.0 03/18/17 02:04 69 18 97 Nasal Cannula 6.0 03/18/17 00:00 97 Nasal Cannula 4.0 03/17/17 23:44 36.8 80 18 137/66 98 Nasal Cannula 03/17/17 20:00 98 Nasal Cannula 4.0 03/17/17 19:35 36.4 69 20 126/61 97 Nasal Cannula 6.0 03/17/17 16:00 98 Nasal Cannula 4.0 Physical Exam General Appearance: WD/WN, no apparent distress Neck: supple, no adenopathy Respiratory/Chest: lungs clear, + decreased breath sounds Cardiovascular: no edema, no gallop Abdomen: non tender, soft 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iatric: alert, normal mood/affect Laboratory Results Last 24 Hours Test 03/17/17 22:15 03/18/17 07:30 03/18/17 15:00 Urine Color YELLOW Urine Appearance CLEAR Urine pH 5.0 Urine Specific [place] 1.023 Urine Protein TRACE Urine Glucose (UA) NEG Urine Ketones TRACE Urine Occult Blood TRACE Urine Nitrite NEG Urine Bilirubin NEG Urine Urobilinogen NEG Urine Leukocyte Esterase TRACE Urine WBC (Auto) 10-30 /hpf Urine RBC (Auto) 5-10 /hpf Urine Hyaline Casts (Auto) 1-5 /lpf Urine Epithelial Cells (Auto) >30 /lpf Urine Bacteria (Auto) 2+ Urine Renal Epithelial Cells 10-20 /lpf Urine Yeast (Auto) BUD W/ HYPHAE Sodium Level 132 mmol/L Potassium Level 4.1 mmol/L Chloride Level 101 mmol/L Carbon Dioxide Level 19 mmol/L Anion Gap 12.0 mmol/L Blood Urea Nitrogen 64 mg/dl Creatinine 1.60 mg/dl Est Creatinine Clear Calc Drug Dose 19.4 ml/min Estimated GFR () 33.7 Estimated GFR (Non- 29.1 BUN/Creatinine Ratio 39.9 Random Glucose 140 mg/dl Calcium Level 8.8 mg/dl Urine Osmolality 344 mOms/kg Assessment and Plan 86yo female with PMHs of lung cancer / NSCLC, recently treated for pneumonia and pleural effusions. Has bilateral pleural catheters placed in October 2016 and in Dec 2016 most recent admission was on 02/20/17 and discharged 03/01 Dr. Blair performed alteplase/dornase protocol in the past on her. CT of the chest on 02/27 showed significant improvement of the effusions. 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 last night staff at [facility] transferred her to [facility] for evaluation. then she was transferred here for care Assessment Acute hypoxic respiratory failure, multifactorial as below VANNESSA (multi factorial, contrast and lasix ) HTN crisis flash pulmonary edema recent klebsiella UTI VALORIE lung cancer - NSCLC -S/P chemotherapy acute COPD exacerbation. 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 Acute on chronic CHF exacerbatin / type is unspecified Anxiety/depression - cont outpatient meds. gout - no flare at this time. protein calorie malnutrition - moderate - boost BID. anemia - likely of chronic diseases abdominal discomfort 2nd to use of abdominal muscle in breathing Plan: S/P institution of the MIST-2 protocol. drained 500 mL total yesterday and a total of 625 so far today. 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 Blair consult appreciated Dr. Bear consult appreciated DVT proph - heparin SQ patient is DNR/DNI with active medical management
--- NOTE | 2017-03-18 16:09 | Nephrology Consultation ---
Nephrology Consultation Date & Providers Date of Consultation: March 18, 2017. Primary Care Provider: Vivek Mayer M.D. Referring Provider: Reason for Consultation Evaluation of acute on chronic kidney injury History of Present Illness Ms. Cedeño is an 86 year old white female who is seen at the request of Dr. Nuñez for evaluation of acute on chronic kidney injury. Medical records in the hospital EMR were reviewed today and are summarized as follows: Ms. Cedeño has non small cell lung cancer. She has had bilateral pleural effusions and has Pleur-x catheters in place. She has CKD w/ baseline creatinine 1.0. Her medical history is also significant for ASCVD, h/o CHF, anemia, h/o GI bleeding and depression. Ms. Cedeño was admitted to the hospital 03/15/17 for evaluation of flash pulmonary edema and dyspnea. She required BiPAP therapy. CTA was negative for PE. Patient was diuresed and creatinine subsequently blanca to 1.6. Renal US revealed mild asymmetry and simple cysts bilaterally. There was no obstruction. Urine sediment has been bland. Past Medical/Surgical History Medical: # CKD w/ baseline creatinine 1.0 # ASCVD # h/o CHF # Anemia # Non small cell lung CA # Depression # Bilateral pleural effusions requiring Pleur-x catheters Surgical: # Appendectomy # Kyphoplasty # Cataracts bilaterally # Bilateral Pleur-x catheters Allergies Coded Allergies: Levofloxacin (Verified Allergy, Unknown, HIVES, 01/08/17) Losartan (Verified Allergy, Unknown, HIVES, 01/08/17) Olmesartan (Verified Allergy, Unknown, HIVES, 01/08/17) Pregabalin (Verified Allergy, Unknown, HIVES, 01/08/17) Sulfa Antibiotics (Verified Allergy, Unknown, HIVES, 12/07/15) Tramadol (Verified Allergy, Unknown, HIVES, 12/07/15) Inpatient Medications Current Inpatient Medications Medications (Trade) Dose Ordered Sig/Maeve Route Start Time Stop Time Status Last Admin Dose Admin Nitroglycerin 0.4 mg 0.4 mg PRN PRN SL 03/15/17 18:30 04/14/17 18:29 Azithromycin/ Dextrose (Zithromax IV/D5 250ml) 255 ml @ 170 mls/hr DAILY@1900 IV 03/15/17 19:00 03/22/17 18:59 03/17/17 19:28 170 MLS/HR Ipratropium Faxon (Atrovent 0.02% 0.5MG/2.5ML Neb) 0.5 mg Q6R INH 03/15/17 21:00 04/14/17 20:59 03/18/17 14:05 0.5 MG Budesonide (Pulmicort Respules 0.25MG/ 2ML Neb Soln) 0.25 mg BIDR INH 03/15/17 20:00 04/14/17 19:59 03/18/17 07:10 0.25 MG Levalbuterol (Xopenex 0.63 Mg/ 3 Ml Neb) 0.63 mg Q6R INH 03/15/17 21:00 04/14/17 20:59 03/18/17 14:05 0.63 MG Hydralazine HCl (HydrALAZINE INJ) 20 mg Q8H PRN IV. 03/15/17 19:00 04/14/17 18:59 Acetaminophen (Tylenol Tab) 500 mg Q6H PRN PO 03/16/17 00:00 04/15/17 00:00 03/16/17 08:37 500 MG Amlodipine Besylate (Norvasc Tab) 10 mg DAILY PO 03/15/17 18:46 04/14/17 18:45 03/18/17 09:11 10 MG Aspirin (Ecotrin Tab) 81 mg QAM PO 03/16/17 09:00 04/15/17 08:59 03/18/17 09:11 81 MG Bisacodyl (Dulcolax Supp) 10 mg DAILY PRN TN 03/15/17 19:00 04/14/17 18:59 Citalopram Hydrobromide (celeXA TAB) 20 mg HS PO 03/15/17 21:00 04/14/17 20:59 03/17/17 21:56 20 MG Cyanocobalamin (Vitamin B-12 Tab) 2,000 mcg DAILY PO 03/16/17 09:00 04/15/17 08:59 03/18/17 09:20 2,000 MCG Diazepam (Valium Tab) 5 mg QID PRN PO 03/15/17 19:00 04/14/17 18:59 Fish Oil ([place]-3 (Purified Fish Oil) Cap) 1 gm DAILY PO 03/16/17 09:00 04/15/17 08:59 03/18/17 09:12 1 GM Magnesium Hydroxide (Milk Of Magnesia Susp) 30 ml DAILY PRN PO 03/15/17 19:00 04/14/17 18:59 Metoprolol Succinate (Toprol Xl Tab) 50 mg DAILY PO 03/15/17 18:46 04/14/17 18:45 03/18/17 09:13 50 MG Oxycodone HCl (Roxicodone Immediate Rel Tab) 5 mg Q4H PRN PO 03/15/17 19:00 03/29/17 18:59 03/18/17 12:22 5 MG Ioversol (Optiray 320) 100 ml UD PRN IV 03/15/17 21:00 03/19/17 20:59 Heparin Sodium (Porcine) 5000 unit 5,000 unit Q8 SQ 03/16/17 06:00 04/15/17 05:59 03/18/17 14:44 5,000 UNIT Methylprednisolone Sodium Succinate/ Syringe (Solu-Medrol IV/ Syringe) 0.64 ml @ 1.5 mls/min Q8H IV 03/17/17 10:00 04/16/17 09:59 03/18/17 09:21 1.5 MLS/MIN Famotidine (Pepcid Tab) 20 mg QAM PO 03/17/17 09:00 04/16/17 08:59 03/18/17 09:14 20 MG Cefepime HCl 1 ea 1 ea UD PRN N/A 03/17/17 09:30 04/16/17 09:29 Cefepime HCl/ Dextrose (Maxipime IV/D5 100ml) 112.5 ml @ 225 mls/hr Q24H IV 03/17/17 22:00 03/22/17 21:59 03/17/17 21:56 225 MLS/HR Ipratropium Faxon (Atrovent 0.02% 0.5MG/2.5ML Neb) 0.5 mg Q4H PRN INH 03/18/17 09:15 04/17/17 09:14 03/18/17 10:22 0.5 MG Polyethylene (Miralax Powder Packet) 17 gm DAILY PO 03/19/17 09:00 04/18/17 08:59 Senna (Senokot Tab) 8.6 mg QAM PO 03/19/17 09:00 04/18/17 08:59 Family History Negative for CKD / ESRD Social History Smoking Status: Former Smoker Drug Use: none Marital Status: Housing Status: lives alone Occupation: retired . Retired. Former smoker Review of Systems Constitutional: No fever Respiratory: + shortness of breath Cardiovascular: No chest pain Abdomen: No nausea, No pain, No vomiting A complete review of systems was performed. Pertinent positives are noted above. All other systems are negative. Physical Exam Date Time Temp Pulse Resp B/P Pulse Ox O2 Delivery O2 Flow Rate FiO2 03/18/17 15:53 36.5 76 20 147/65 91 Nasal Cannula 2.0 03/18/17 14:05 76 18 93 Nasal Cannula 2.0 03/18/17 12:00 94 Nasal Cannula 4.0 03/18/17 11:37 36.3 69 18 150/62 96 Nasal Cannula 2.0 03/18/17 10:22 74 18 97 Nasal Cannula 4.0 03/18/17 08:00 94 Nasal Cannula 4.0 03/18/17 07:29 36.5 73 18 148/68 94 Nasal Cannula 4.0 03/18/17 07:11 84 18 97 Nasal Cannula 4.0 03/18/17 04:12 36.7 78 18 157/73 95 Nasal Cannula 4.0 03/18/17 04:00 98 Nasal Cannula 4.0 03/18/17 02:04 69 18 97 Nasal Cannula 6.0 03/18/17 00:00 97 Nasal Cannula 4.0 03/17/17 23:44 36.8 80 18 137/66 98 Nasal Cannula 03/17/17 20:00 98 Nasal Cannula 4.0 03/17/17 19:35 36.4 69 20 126/61 97 Nasal Cannula 6.0 03/17/17 16:00 98 Nasal Cannula 4.0 General Appearance: no apparent distress Head: normocephalic, atraumatic Eyes: PERRL Neck: + JVD Respiratory/Chest: + crackles (at bases bilaterally) Cardiovascular: regular rate, rhythm Abdomen/GI: normal bowel sounds, non tender, soft Extremities/Musculoskelatal: no calf tenderness, no pedal edema 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: alert, oriented x 3 (hard of hearing) Laboratory Results Last 24 Hours Test 03/17/17 22:15 03/18/17 07:30 03/18/17 15:00 Urine Color YELLOW Urine Appearance CLEAR Urine pH 5.0 Urine Specific [place] 1.023 Urine Protein TRACE Urine Glucose (UA) NEG Urine Ketones TRACE Urine Occult Blood TRACE Urine Nitrite NEG Urine Bilirubin NEG Urine Urobilinogen NEG Urine Leukocyte Esterase TRACE Urine WBC (Auto) 10-30 /hpf Urine RBC (Auto) 5-10 /hpf Urine Hyaline Casts (Auto) 1-5 /lpf Urine Epithelial Cells (Auto) >30 /lpf Urine Bacteria (Auto) 2+ Urine Renal Epithelial Cells 10-20 /lpf Urine Yeast (Auto) BUD W/ HYPHAE Sodium Level 132 mmol/L Potassium Level 4.1 mmol/L Chloride Level 101 mmol/L Carbon Dioxide Level 19 mmol/L Anion Gap 12.0 mmol/L Blood Urea Nitrogen 64 mg/dl Creatinine 1.60 mg/dl Est Creatinine Clear Calc Drug Dose 19.4 ml/min Estimated GFR () 33.7 Estimated GFR (Non- 29.1 BUN/Creatinine Ratio 39.9 Random Glucose 140 mg/dl Calcium Level 8.8 mg/dl Urine Osmolality 344 mOms/kg Impression (1) Acute kidney injury (2) Chronic kidney disease (3) Congestive heart failure (4) Acute respiratory failure with hypoxia (5) Contrast dye induced nephropathy (6) Anemia (7) Non-small cell carcinoma of lung (8) Pleural effusion Acute on chronic kidney injury is likely reflective of both contrast induced nephropathy and CHF. Urine sediment is benign. Renal US is negative for obstruction. CXR shows persistent pulmonary edema and bilateral pleural effusions. Patient remains mildly hypertensive. Recommendations ACUTE KIDNEY INJURY: -- Avoid further contrast administration -- Urine sediment reviewed. No casts -- Monitor serial PRP CHRONIC KIDNEY DISEASE: -- Baseline creatinine is 1.0 -- Renal US report reviewed today. Mild asymmetry but no obstruction CHF: -- Heplock IV -- Provide one dose IV furosemide -- Monitor UO -- Check echocardiogram -- Add Hydralazine to current medical regimen to decrease peripheral resistance -- Recommend Cardiology consultation
[2017-03-18] MEDS: AZITHROMYCIN IV 500 MG in DEXTROSE 5% 250ML 250 ML IV SCH (18:31)
[2017-03-18 19:46] LABS: URINE APPEARANCE CLOUDY (CLEAR); URINE BILIRUBIN NEG (NEG); URINE COLOR YELLOW; URINE EPITHELIAL CELL AUTO >30 /lpf (0-5); URINE NITRITE NEG (NEG); URINE SPECIFIC GRAVITY 1.014 (1.000-1.030); UROBILINOGEN NEG (NEG)
[2017-03-18 19:47] LABS: MANUAL MICROSCOPIC REQUIRED? NO; REVIEW REQ? YES
[2017-03-18] MEDS: CITALOPRAM 20 MG TAB PO SCH (19:51)
[2017-03-18] MEDS: CEFEPIME IV 2000 MG in DEXTROSE 5% 100ML IV SCH (22:35)
[2017-03-19] VITALS (11 sets, daily range): BP systolic 145–159; BP diastolic 56–65; PULSE 71–79; TEMP 36.4–36.6; O2SAT 95–97
[2017-03-19] MEDS: METHYLPREDNISOLONE IV 40 MG in SYRINGE 0 ML IV SCH ×2 (02:07→14:00)
[2017-03-19] MEDS: LEVALBUTEROL 0.63MG/3 ML NEB INH SCH ×4 (02:19→20:55)
[2017-03-19] MEDS: IPRATROPIUM BROMIDE NEB SOLN 0.02% 2.5 ML VIAL INH SCH ×4 (02:19→20:55)
[2017-03-19] MEDS: OXYCODONE HCL IR 5 MG TAB (IMMEDIATE RELEASE) PO PRN ×2 (05:13→20:18)
[2017-03-19] MEDS: HEPARIN SOD 5000 UNIT/0.5 ML CARP SQ SCH ×3 (05:14→21:26)
[2017-03-19 05:53] LABS: HEMATOCRIT 27.2 % (37-47); MEAN CELL VOLUME 90.4 fL (80-100); MEAN CORPUSCULAR HEMOGLOBIN 29.9 pg (25-34); MEAN CORPUSCULAR HGB CONC 33.1 g/dl (32-36); MEAN PLATELET VOLUME 9.8 fL (7.4-10.4); PLATELET COUNT 417 K/uL (130-400); RED BLOOD COUNT 3.01 M/uL (4.2-5.4); WHITE BLOOD COUNT 10.38 K/uL (4.8-10.8)
[2017-03-19 06:32] LABS: BUN/CREATININE RATIO 44.5 (10-20); CALCIUM 8.8 mg/dl (8.5-10.1); CREATININE 1.5 mg/dl (0.60-1.20); POTASSIUM 3.9 mmol/L (3.5-5.1)
[2017-03-19] MEDS: BUDESONIDE 0.25 MG/2 ML VIAL (PULMICORT) INH SCH ×2 (07:05→20:00)
--- NOTE | 2017-03-19 07:31 | DIAGNOSTIC IMAGING REPORT ---
CHEST ONE VIEW PORTABLE CLINICAL HISTORY: Bilateral pulm effusion, congestive changes, sob COMPARISON STUDY: December 19, 2016 FINDINGS: Unchanged study radiographically. Unchanged catheter position left base. Persistent diffuse bilateral parenchymal infiltrative change. IMPRESSION: Unchanged study. Unchanged position of a left basilar drainage catheter. Electronically signed by: Leonidas Chaparro M.D. 03/19/2017 7:30 AM Dictated Date/Time: 03/19/2017 7:29 AM
[2017-03-19] MEDS: POLYETHYLENE (MIRALAX) 17 GM PACK PO SCH (08:03)
[2017-03-19] MEDS: FAMOTIDINE 20 MG TAB PO SCH (08:04)
[2017-03-19] MEDS: SENNA 8.6 MG TAB PO SCH (08:04)
[2017-03-19] MEDS: OMEGA-3 (PURIFIED FISH OIL) 1 GM CAP PO SCH (08:04)
[2017-03-19] MEDS: CYANOCOBALAMIN 500 MCG TAB (VIT B-12) PO SCH (08:05)
[2017-03-19] MEDS: ASPIRIN 81 MG ECTAB PO SCH (08:05)
[2017-03-19] MEDS: AMLODIPINE BESYLATE 5 MG TAB PO SCH (08:05)
[2017-03-19] MEDS: METOPROLOL SUCC 50MG EXT REL TAB PO SCH (08:05)
--- NOTE | 2017-03-19 11:21 | PROGRESS NOTE ---
DATE: 03/19/2017 PULMONARY PROGRESS NOTE PROBLEM LIST: Includes: 1. Left upper lobe lung cancer, nonsmall cell. 2. Shortness of breath. 3. Bilateral loculated pleural effusion. 4. Coronary artery disease. SUBJECTIVE: The patient reports that her breathing is better today. She states that she did receive the Lasix yesterday and had some fluid taken off and is feeling better from that. She denies any other concerns. She is not having any cough or congestion. She is not having any wheezing. No chest heaviness or tightness. She has not gotten up out of bed yet today. She is a little bit more tired today. She states that she is feeling better overall. She did receive some MiraLax and Senokot. She has not moved her bowels yet, but feels that things are doing better with her bowels. She states that they were into drain her PleurX catheter this morning and she states they got approximately 200 mL out of the left and less than 50 out of the right. She is not having any abdominal pain. She is not having any difficulty with swelling in her extremities. No fever or chills. OBJECTIVE: GENERAL: The patient is an 86-year-old white female in no acute distress. She is alert and oriented x3. Mood is good. Affect is good. VITAL SIGNS: Temp 36.5, pulse 79, respirations 20, blood pressure is 155/56, pulse ox is 95% on 2 liters. HEENT: Normocephalic, atraumatic. Pupils equal, round and reactive to light and accommodation. Extraocular movements are intact. [place], moist gingival and buccal mucosa. NECK: Thin, no mass, no adenopathy or bruit. CHEST: The patient has diminished breath sounds bilaterally, although they are slightly improved compared to yesterday. CARDIOVASCULAR: Regular rate and rhythm. No murmurs, gallops or rubs. ABDOMEN: Bowel sounds are present. Abdomen soft, nontender. No guarding, rigidity or organomegaly. EXTREMITIES: No erythema or edema. NEUROLOGIC: Cranial nerves II through XII are intact. No focal deficit noted. LABORATORY DATA: Shows white count down to 10,000, H\T\H 9.0 and 27.2, platelet count 417,000. BUN 67, creatinine 1.5. IMAGING DATA: Chest x-ray - it showed a little bit of improvement in the congestive changes at the bases, otherwise no significant changes. IMPRESSION AND PLAN: 1. An 86-year-old female with nonsmall cell lung carcinoma in the left which appears to be stable. 2. Bilateral pleural effusions. The patient had MIST 2 protocol x3. I reviewed the note from thoracic surgery now and they are going to hold off doing any more at this time and see how she does. 3. Congestive type changes from yesterday, possibly a little bit of fluid overload/congestive heart failure. The patient was given a low dose of Lasix in the form of 20 mg IV yesterday and is feeling better today. She states that her breathing has improved today. 4. Constipation, abdominal x-ray did show some mild to moderate stool in the colon, no evidence of marked obstruction. She was started on MiraLax and Senokot. She was encouraged to try and get up and move around as this will help her bowels. She voiced understanding and in agreement. At this point, in regards to her antibiotic and steroid, I think we can try decreasing her steroid to 40 q. 12 and see how she does. Continue antibiotic as it is. Continue pulmonary toilet as it is. Continue to follow through hospitalization. SHAHIDAD
--- NOTE | 2017-03-19 12:13 | Nephrology Progress Note ---
Nephrology Progress Note Date of Service March 19, 2017. Chief Complaint Evaluation of acute on chronic kidney injury Subjective Ms. Cedeño was seen & examined in the PCU this morning. She was sitting up in bed visiting with her two daughters. She was breathing comfortably on O2 at 2 L / min NC. She denied fever, angina, productive cough or pleurisy. Ms. Cedeño reports that her breathing has improved following diuretic administration. Review of Systems Constitutional: No fever Cardiovascular: No chest pain Respiratory: No dyspnea at rest Abdomen: No nausea, No pain, No vomiting Extremities: No leg edema A complete review of systems was performed. Pertinent positives are noted above. All other systems are negative. Vital Signs Last 8 Hrs Date Time Temp Pulse Resp B/P Pulse Ox O2 Delivery O2 Flow Rate FiO2 03/19/17 08:00 Nasal Cannula 2.0 03/19/17 07:39 36.5 79 20 155/56 95 Nasal Cannula 2.0 03/19/17 07:05 76 16 95 Nasal Cannula 2.0 I & O 24-Hour Column 03/19/17 08:00 Intake Total 998 ml Output Total 1550 ml Balance -552 ml Last Recorded Weight Weight (Kilograms): 50.900 Physical Exam General Appearance: no apparent distress Head: atraumatic (temporal muscle wasting) Eyes: PERRL Neck: no adenopathy Respiratory/Chest: lungs clear Cardiovascular: regular rate, rhythm Back: + pertinent finding (Bilateral Pleur-x catheters in place) Abdomen/GI: normal bowel sounds, non tender, soft Extremities/Musculoskelatal: no calf tenderness, no pedal edema 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: alert, oriented x 3 Family History Negative for CKD / ESRD Social History Drug Use: none Marital Status: Housing Status: lives alone Occupation: retired . Retired. Former smoker Laboratory Results Past 24 Hours 03/19/17 05:05 03/19/17 05:05 Test 03/18/17 15:00 03/18/17 19:31 03/19/17 05:05 Urine Osmolality 344 mOms/kg (500-800) Urine Color YELLOW Urine Appearance CLOUDY (CLEAR) Urine pH 5.0 (4.5-7.5) Urine Specific [place] 1.014 (1.000-1.030) Urine Protein NEG (NEG) Urine Glucose (UA) NEG (NEG) Urine Ketones NEG (NEG) Urine Occult Blood 3+ (NEG) Urine Nitrite NEG (NEG) Urine Bilirubin NEG (NEG) Urine Urobilinogen NEG (NEG) Urine Leukocyte Esterase MODERATE (NEG) Urine WBC (Auto) >30 /hpf (0-5) Urine RBC (Auto) 10-30 /hpf (0-4) Urine Hyaline Casts (Auto) 10-30 /lpf (0-5) Urine Epithelial Cells (Auto) >30 /lpf (0-5) Urine Bacteria (Auto) NEG (NEG) Urine Renal Epithelial Cells 0-5 /lpf (0-5) Urine Pathogenic Casts 10-20 GRANULAR CASTS /lpf (0) Urine Yeast (Auto) BUD W/ HYPHAE (NONE PRSENT) Red Blood Count 3.01 M/uL (4.2-5.4) Mean Corpuscular Volume 90.4 fL (80-100) Mean Corpuscular Hemoglobin 29.9 pg (25-34) Mean Corpuscular Hemoglobin Concent 33.1 g/dl (32-36) RDW Standard Deviation 57.4 fL (36.4-46.3) RDW Coefficient of Variation 17.4 % (11.5-14.5) Mean Platelet Volume 9.8 fL (7.4-10.4) Anion Gap 11.0 mmol/L (3-11) Est Creatinine Clear Calc Drug Dose 22.0 ml/min Estimated GFR () 36.4 Estimated GFR (Non- 31.4 BUN/Creatinine Ratio 44.5 (10-20) Calcium Level 8.8 mg/dl (8.5-10.1) Allergies Coded Allergies: Levofloxacin (Verified Allergy, Unknown, HIVES, 01/08/17) Losartan (Verified Allergy, Unknown, HIVES, 01/08/17) Olmesartan (Verified Allergy, Unknown, HIVES, 01/08/17) Pregabalin (Verified Allergy, Unknown, HIVES, 01/08/17) Sulfa Antibiotics (Verified Allergy, Unknown, HIVES, 12/07/15) Tramadol (Verified Allergy, Unknown, HIVES, 12/07/15) Medications Current Inpatient Medications Medications (Trade) Dose Ordered Sig/Maeve Route Start Time Stop Time Status Last Admin Dose Admin Nitroglycerin 0.4 mg 0.4 mg PRN PRN SL 03/15/17 18:30 04/14/17 18:29 Azithromycin/ Dextrose (Zithromax IV/D5 250ml) 255 ml @ 170 mls/hr DAILY@1900 IV 03/15/17 19:00 03/22/17 18:59 03/18/17 18:31 170 MLS/HR Ipratropium [place] (Atrovent 0.02% 0.5MG/2.5ML Neb) 0.5 mg Q6R INH 03/15/17 21:00 04/14/17 20:59 03/19/17 07:05 0.5 MG Budesonide (Pulmicort Respules 0.25MG/ 2ML Neb Soln) 0.25 mg BIDR INH 03/15/17 20:00 04/14/17 19:59 03/19/17 07:05 0.25 MG Levalbuterol (Xopenex 0.63 Mg/ 3 Ml Neb) 0.63 mg Q6R INH 03/15/17 21:00 04/14/17 20:59 03/19/17 07:05 0.63 MG Hydralazine HCl (HydrALAZINE INJ) 20 mg Q8H PRN IV. 03/15/17 19:00 04/14/17 18:59 Acetaminophen (Tylenol Tab) 500 mg Q6H PRN PO 03/16/17 00:00 04/15/17 00:00 03/16/17 08:37 500 MG Amlodipine Besylate (Norvasc Tab) 10 mg DAILY PO 03/15/17 18:46 04/14/17 18:45 03/19/17 08:05 10 MG Aspirin (Ecotrin Tab) 81 mg QAM PO 03/16/17 09:00 04/15/17 08:59 03/19/17 08:05 81 MG Bisacodyl (Dulcolax Supp) 10 mg DAILY PRN ID 03/15/17 19:00 04/14/17 18:59 Citalopram Hydrobromide (celeXA TAB) 20 mg HS PO 03/15/17 21:00 04/14/17 20:59 03/18/17 19:51 20 MG Cyanocobalamin (Vitamin B-12 Tab) 2,000 mcg DAILY PO 03/16/17 09:00 04/15/17 08:59 03/19/17 08:05 2,000 MCG Diazepam (Valium Tab) 5 mg QID PRN PO 03/15/17 19:00 04/14/17 18:59 Fish Oil ([place]-3 (Purified Fish Oil) Cap) 1 gm DAILY PO 03/16/17 09:00 04/15/17 08:59 03/19/17 08:04 1 GM Magnesium Hydroxide (Milk Of Magnesia Susp) 30 ml DAILY PRN PO 03/15/17 19:00 04/14/17 18:59 Metoprolol Succinate (Toprol Xl Tab) 50 mg DAILY PO 03/15/17 18:46 04/14/17 18:45 03/19/17 08:05 50 MG Oxycodone HCl (Roxicodone Immediate Rel Tab) 5 mg Q4H PRN PO 03/15/17 19:00 03/29/17 18:59 03/19/17 05:13 5 MG Ioversol (Optiray 320) 100 ml UD PRN IV 03/15/17 21:00 03/19/17 20:59 Heparin Sodium (Porcine) (Heparin Sq 5000 Unit/0.5ml) 5,000 unit Q8 SQ 03/16/17 06:00 04/15/17 05:59 03/19/17 05:14 5,000 UNIT Famotidine (Pepcid Tab) 20 mg QAM PO 03/17/17 09:00 04/16/17 08:59 03/19/17 08:04 20 MG Cefepime HCl 1 ea 1 ea UD PRN N/A 03/17/17 09:30 04/16/17 09:29 Cefepime HCl/ Dextrose (Maxipime IV/D5 100ml) 112.5 ml @ 225 mls/hr Q24H IV 03/17/17 22:00 03/22/17 21:59 03/18/17 22:35 225 MLS/HR Ipratropium [place] (Atrovent 0.02% 0.5MG/2.5ML Neb) 0.5 mg Q4H PRN INH 03/18/17 09:15 04/17/17 09:14 03/18/17 10:22 0.5 MG Polyethylene (Miralax Powder Packet) 17 gm DAILY PO 03/19/17 09:00 04/18/17 08:59 03/19/17 08:03 17 GM Senna (Senokot Tab) 8.6 mg QAM PO 03/19/17 09:00 04/18/17 08:59 03/19/17 08:04 8.6 MG Hydralazine HCl 25 mg 25 mg Q8 PO 03/18/17 22:00 04/17/17 21:59 03/19/17 05:13 25 MG Methylprednisolone Sodium Succinate/ Syringe (Solu-Medrol IV/ Syringe) 0.64 ml @ 1.5 mls/min Q12H IV 03/19/17 14:00 04/18/17 13:59 Impression (1) Acute kidney injury (2) Chronic kidney disease (3) Congestive heart failure (4) Acute respiratory failure with hypoxia (5) Contrast dye induced nephropathy (6) Anemia (7) Non-small cell carcinoma of lung (8) Pleural effusion Acute on chronic kidney injury is likely reflective of both contrast induced nephropathy and CHF. Urine sediment shows granular casts c/w ATN. Renal US is negative for obstruction. CXR shows persistent pulmonary edema and bilateral pleural effusions. Patient remains mildly hypertensive. Recommendations ACUTE KIDNEY INJURY: -- Avoid further contrast administration -- Urine sediment is now positive for granular casts. Patient has suffered ATN -- Monitor serial PRP CHRONIC KIDNEY DISEASE: -- Baseline creatinine is 1.0 -- Renal US report revealed mild asymmetry but no obstruction CHF: -- CXR this am is unchanged. Patient has persistent CHF -- Continue gentle diuresis. Will reorder Furosemide 20 mg IV x 1 this afternoon -- Monitor UO -- Await echocardiogram results -- Hydralazine added to medical regimen yesterday to decrease peripheral resistance -- Recommend Cardiology consultation
--- NOTE | 2017-03-19 13:29 | Progress Note ---
Subjective Date of Service: March 19, 2017. Subjective Pt evaluation today including: conversation w/ patient, physical exam, chart review, lab review, review of studies, review of inpatient medication list Resting comfortably in bed States breathing improved States still constipated No acute events overnight Problem List Medical Problems: (1) Dyspnea Status: Acute (2) Hypoxia Status: Acute (3) Pulmonary edema Status: Acute Review of Systems Constitutional: No chills, No fever Respiratory: No cough, No dyspnea on exertion, No shortness of breath, No sputum, No wheezing Cardiac: No chest pain, No orthopnea Abdomen: No constipation, No diarrhea, No nausea, No pain, No vomiting Musculoskeletal: No joint pain, No muscle pain Female : No dysuria, No urinary frequency Objective Vital Signs Date Time Temp Pulse Resp B/P Pulse Ox O2 Delivery O2 Flow Rate FiO2 03/19/17 12:06 36.5 71 18 159/56 97 Nasal Cannula 2.0 03/19/17 12:00 Nasal Cannula 2.0 03/19/17 08:00 Nasal Cannula 2.0 03/19/17 07:39 36.5 79 20 155/56 95 Nasal Cannula 2.0 03/19/17 07:05 76 16 95 Nasal Cannula 2.0 03/19/17 04:00 Nasal Cannula 2.0 03/19/17 03:48 36.6 72 20 148/60 95 Nasal Cannula 2.0 03/19/17 02:19 75 16 95 Nasal Cannula 2.0 03/19/17 00:01 Nasal Cannula 2.0 03/18/17 23:38 36.7 77 20 135/58 97 Nasal Cannula 3.0 03/18/17 20:02 81 16 95 Nasal Cannula 2.0 03/18/17 20:00 Nasal Cannula 2.0 03/18/17 19:25 36.5 71 20 116/51 92 Nasal Cannula 2.0 03/18/17 16:00 Nasal Cannula 2.0 03/18/17 15:53 36.5 76 20 147/65 91 Nasal Cannula 2.0 03/18/17 14:05 76 18 93 Nasal Cannula 2.0 Physical Exam General Appearance: WD/WN, no apparent distress Neck: supple, no adenopathy Respiratory/Chest: chest non-tender, + wheezing Cardiovascular: no edema, no gallop Abdomen: non tender, soft 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iatric: alert, oriented x 3 Laboratory Results Last 24 Hours Test 03/18/17 15:00 03/18/17 19:31 03/19/17 05:05 Urine Osmolality 344 mOms/kg Urine Color YELLOW Urine Appearance CLOUDY Urine pH 5.0 Urine Specific [place] 1.014 Urine Protein NEG Urine Glucose (UA) NEG Urine Ketones NEG Urine Occult Blood 3+ Urine Nitrite NEG Urine Bilirubin NEG Urine Urobilinogen NEG Urine Leukocyte Esterase MODERATE Urine WBC (Auto) >30 /hpf Urine RBC (Auto) 10-30 /hpf Urine Hyaline Casts (Auto) 10-30 /lpf Urine Epithelial Cells (Auto) >30 /lpf Urine Bacteria (Auto) NEG Urine Renal Epithelial Cells 0-5 /lpf Urine Pathogenic Casts 10-20 GRANULAR CASTS /lpf Urine Yeast (Auto) BUD W/ HYPHAE White Blood Count 10.38 K/uL Red Blood Count 3.01 M/uL Hemoglobin 9.0 g/dL Hematocrit 27.2 % Mean Corpuscular Volume 90.4 fL Mean Corpuscular Hemoglobin 29.9 pg Mean Corpuscular Hemoglobin Concent 33.1 g/dl RDW Standard Deviation 57.4 fL RDW Coefficient of Variation 17.4 % Platelet Count 417 K/uL Mean Platelet Volume 9.8 fL Sodium Level 133 mmol/L Potassium Level 3.9 mmol/L Chloride Level 103 mmol/L Carbon Dioxide Level 19 mmol/L Anion Gap 11.0 mmol/L Blood Urea Nitrogen 67 mg/dl Creatinine 1.50 mg/dl Est Creatinine Clear Calc Drug Dose 22.0 ml/min Estimated GFR () 36.4 Estimated GFR (Non- 31.4 BUN/Creatinine Ratio 44.5 Random Glucose 138 mg/dl Calcium Level 8.8 mg/dl Assessment and Plan 86yo female with PMHs of lung cancer / NSCLC, recently treated for pneumonia and pleural effusions. Has bilateral pleural catheters placed in October 2016 and in Dec 2016 most recent admission was on 02/20/17 and discharged 03/01 Dr. Blair performed alteplase/dornase protocol in the past on her. CT of the chest on 02/27 showed significant improvement of the effusions. She was stable for discharge to [facility] and was doing well until 2 days STEM ROLLER she developed severe SOB that got progressively worse. last night staff at [facility] transferred her to [facility] for evaluation. then she was transferred here for care Assessment Acute hypoxic respiratory failure, multifactorial as below VANNESSA (multi factorial, contrast and lasix ) HTN crisis flash pulmonary edema recent klebsiella UTI VALORIE lung cancer - NSCLC -S/P chemotherapy acute COPD exacerbation. 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 Acute on chronic CHF exacerbation likely diastolic in nature Anxiety/depression - cont outpatient meds. gout - no flare at this time. protein calorie malnutrition - moderate - boost BID. 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 Blair consult appreciated Dr. Bear consult appreciated DVT proph - heparin SQ patient is DNR/DNI with active medical management
[2017-03-19] MEDS ORDERED: SOAP SUDS ENEMA PR ONE (13:30)
[2017-03-19] MEDS ORDERED: FUROSEMIDE INJ 20 MG in SYRINGE 0 ML IV ONE (14:00)
--- NOTE | 2017-03-19 18:35 | SURGERY PROGRESS NOTE ---
DATE: 03/19/2017 SUBJECTIVE: Ms. Cedeño was seen today on 03/19/2017. I think she looks quite good actually. She is on 2 liters. She is 95% saturations. She has no fever. Her white count is 10,380. She had an x-ray today which shows some diffuse patchy infiltrates, but quite frankly she does not appear to have much in the way of any pleural fluid. I am quite happy with her. The patient is suffering from ATN. BUN is 67 and her creatinine is 1.50. Dr. Maria is following her for this. I think she actually looks pretty good and I would not offer her anything different today. SHAHIDAD
[2017-03-19] MEDS: AZITHROMYCIN IV 500 MG in DEXTROSE 5% 250ML 250 ML IV SCH (19:09)
[2017-03-19] MEDS: CITALOPRAM 20 MG TAB PO SCH (20:18)
[2017-03-19] MEDS: CEFEPIME IV 2000 MG in DEXTROSE 5% 100ML IV SCH (21:36)
[2017-03-20] VITALS (14 sets, daily range): BP systolic 109–171; BP diastolic 61–79; PULSE 59–93; TEMP 36.3–36.8; O2SAT 91–100
[2017-03-20] MEDS: IPRATROPIUM BROMIDE NEB SOLN 0.02% 2.5 ML VIAL INH SCH ×4 (02:11→19:10)
[2017-03-20] MEDS: LEVALBUTEROL 0.63MG/3 ML NEB INH SCH ×4 (02:11→19:10)
[2017-03-20] MEDS: METHYLPREDNISOLONE IV 40 MG in SYRINGE 0 ML IV SCH (02:14)
[2017-03-20] MEDS: HEPARIN SOD 5000 UNIT/0.5 ML CARP SQ SCH ×3 (05:23→21:46)
[2017-03-20 06:07] LABS: HEMATOCRIT 28.5 % (37-47); MEAN CELL VOLUME 90.2 fL (80-100); MEAN CORPUSCULAR HEMOGLOBIN 29.7 pg (25-34); MEAN PLATELET VOLUME 9.5 fL (7.4-10.4); PLATELET COUNT 409 K/uL (130-400); RED BLOOD COUNT 3.16 M/uL (4.2-5.4); WHITE BLOOD COUNT 10.43 K/uL (4.8-10.8)
[2017-03-20 06:43] LABS: BUN/CREATININE RATIO 44.7 (10-20); CALCIUM 8.9 mg/dl (8.5-10.1); CREATININE 1.4 mg/dl (0.60-1.20); POTASSIUM 4.1 mmol/L (3.5-5.1)
[2017-03-20] MEDS: BUDESONIDE 0.25 MG/2 ML VIAL (PULMICORT) INH SCH ×2 (07:01→19:10)
[2017-03-20] MEDS: SENNA 8.6 MG TAB PO SCH (08:05)
[2017-03-20] MEDS: OMEGA-3 (PURIFIED FISH OIL) 1 GM CAP PO SCH (08:05)
[2017-03-20] MEDS: CYANOCOBALAMIN 500 MCG TAB (VIT B-12) PO SCH (08:05)
[2017-03-20] MEDS: FAMOTIDINE 20 MG TAB PO SCH (08:05)
[2017-03-20] MEDS: METOPROLOL SUCC 50MG EXT REL TAB PO SCH (08:05)
[2017-03-20] MEDS: ASPIRIN 81 MG ECTAB PO SCH (08:06)
[2017-03-20] MEDS: POLYETHYLENE (MIRALAX) 17 GM PACK PO SCH (08:06)
[2017-03-20] MEDS: AMLODIPINE BESYLATE 5 MG TAB PO SCH (08:06)
--- NOTE | 2017-03-20 09:41 | PULMONARY PROGRESS NOTE ---
DATE: 03/20/2017 DATE: 03/20/2017. TIME: 9:05 a.m. SUBJECTIVE: The patient states she had a pretty good night. She is less short of breath than she was 2 days ago. She has a cough after breakfast. She brings up some clear phlegm, but she thinks it may just be saliva. She denies any chest pains. OBJECTIVE: GENERAL: The patient appeared less dyspneic than a couple of days ago. VITAL SIGNS: She is afebrile with a temperature of 36.7. She remains cachectic appearing. She remains fairly weak. HEART: The heart rate is 80 beats per minute. Blood pressure is 171/64. CHEST: Respiratory rate is 20. Auscultation of the chest posteriorly reveals mild rales in both lower lung ramirez. No wheezing was heard. Saturation was 95% on 2 liters. ABDOMEN: Soft and nontender. EXTREMITIES: Her legs are showing trace edema. LABORATORY DATA: White count today is 10.43, hemoglobin 9.4, platelets 409,000. The BUN today is 63 with a creatinine of 1.4. Yesterday, the BUN was 67 with a creatinine of 1.5. Electrolytes show sodium 135, potassium 4.1, chloride 104, bicarb 22. Chest x-ray done yesterday showed persistent diffuse parenchymal infiltrative change with drainage tube on the left. The infiltrates could reflect volume overload. IMPRESSIONS: 1. Lung carcinoma -- nonsmall cell. 2. Emphysema. 3. Loculated pleural effusions, bilateral. 4. Coronary artery disease with possible congestive heart failure. 5. Renal insufficiency. COMMENTS AND RECOMMENDATIONS: The respiratory status is fairly stable. She is feeling somewhat better. I believe her steroids can be changed to oral. I did not find evidence of an echo that I thought was going to be done. This had been suggested also by Dr. Maria. In light of her stability I will see again only if specifically requested. However, please feel free to call if we may help in any way.
[2017-03-20] MEDS: FUROSEMIDE 20 MG TAB PO SCH (11:54)
--- NOTE | 2017-03-20 13:01 | Nephrology Progress Note ---
Nephrology Progress Note Date of Service March 20, 2017. Chief Complaint Follow-up for acute kidney injury Diana Torres was seen and examined in her room this morning. She has been otherwise feeling fine, denies any shortness of breath or chest pain. Has been having decent urine output. Blood pressure stable. Renal function slowly improving, creatinine 1.5 this morning. Review of Systems A complete review of systems was performed. Pertinent positives are noted above. All other systems are negative. Vital Signs Last 8 Hrs Date Time Temp Pulse Resp B/P Pulse Ox O2 Delivery O2 Flow Rate FiO2 03/20/17 12:29 36.5 64 20 152/76 95 Room Air 03/20/17 12:00 Nasal Cannula 2.0 03/20/17 11:32 75 98 03/20/17 08:05 36.7 80 20 171/64 95 Nasal Cannula 2.0 03/20/17 08:00 Nasal Cannula 2.0 03/20/17 07:01 70 18 97 Nasal Cannula 2.0 I & O 24-Hour Column 03/20/17 08:00 Intake Total 587 ml Output Total 1250 ml Balance -663 ml Last Recorded Weight Weight (Kilograms): 51.000 Physical Exam GENERAL: Elderly female, AAA x 3, pleasant, healthy-appearing, not in any distress. NECK: Supple, no JVD. RESPIRATORY: Normal breathing efforts, no accessory muscle use, clear to auscultation bilaterally, no wheezes or rales. CARDIOVASCULAR: S1, S2 normal, rate rhythm regular. EXTREMITY: No lower extremity edema NEURO: speech fluent. PSYCHIATRY: Normal mood and judgment Family History Negative for CKD / ESRD Social History Drug Use: none Marital Status: Housing Status: lives alone Occupation: retired . Retired. Former smoker Laboratory Results Past 24 Hours 03/20/17 05:50 03/20/17 05:50 Test 03/20/17 05:50 Red Blood Count 3.16 M/uL (4.2-5.4) Mean Corpuscular Volume 90.2 fL (80-100) Mean Corpuscular Hemoglobin 29.7 pg (25-34) Mean Corpuscular Hemoglobin Concent 33.0 g/dl (32-36) RDW Standard Deviation 57.0 fL (36.4-46.3) RDW Coefficient of Variation 17.1 % (11.5-14.5) Mean Platelet Volume 9.5 fL (7.4-10.4) Anion Gap 9.0 mmol/L (3-11) Est Creatinine Clear Calc Drug Dose 23.7 ml/min Estimated GFR () 39.6 Estimated GFR (Non- 34.2 BUN/Creatinine Ratio 44.7 (10-20) Calcium Level 8.9 mg/dl (8.5-10.1) Allergies Coded Allergies: Levofloxacin (Verified Allergy, Unknown, HIVES, 01/08/17) Losartan (Verified Allergy, Unknown, HIVES, 01/08/17) Olmesartan (Verified Allergy, Unknown, HIVES, 01/08/17) Pregabalin (Verified Allergy, Unknown, HIVES, 01/08/17) Sulfa Antibiotics (Verified Allergy, Unknown, HIVES, 12/07/15) Tramadol (Verified Allergy, Unknown, HIVES, 12/07/15) Medications Current Inpatient Medications Medications (Trade) Dose Ordered Sig/Maeve Route Start Time Stop Time Status Last Admin Dose Admin Nitroglycerin 0.4 mg 0.4 mg PRN PRN SL 03/15/17 18:30 04/14/17 18:29 Azithromycin/ Dextrose (Zithromax IV/D5 250ml) 255 ml @ 170 mls/hr DAILY@1900 IV 03/15/17 19:00 03/22/17 18:59 03/19/17 19:09 170 MLS/HR Ipratropium [place] (Atrovent 0.02% 0.5MG/2.5ML Neb) 0.5 mg Q6R INH 03/15/17 21:00 04/14/17 20:59 03/20/17 07:01 0.5 MG Budesonide (Pulmicort Respules 0.25MG/ 2ML Neb Soln) 0.25 mg BIDR INH 03/15/17 20:00 04/14/17 19:59 03/20/17 07:01 0.25 MG Levalbuterol (Xopenex 0.63 Mg/ 3 Ml Neb) 0.63 mg Q6R INH 03/15/17 21:00 04/14/17 20:59 03/20/17 07:01 0.63 MG Hydralazine HCl (HydrALAZINE INJ) 20 mg Q8H PRN IV. 03/15/17 19:00 04/14/17 18:59 Acetaminophen (Tylenol Tab) 500 mg Q6H PRN PO 03/16/17 00:00 04/15/17 00:00 03/16/17 08:37 500 MG Amlodipine Besylate (Norvasc Tab) 10 mg DAILY PO 03/15/17 18:46 04/14/17 18:45 03/20/17 08:06 10 MG Aspirin (Ecotrin Tab) 81 mg QAM PO 03/16/17 09:00 04/15/17 08:59 03/20/17 08:06 81 MG Bisacodyl (Dulcolax Supp) 10 mg DAILY PRN [place] 03/15/17 19:00 04/14/17 18:59 Citalopram Hydrobromide (celeXA TAB) 20 mg HS PO 03/15/17 21:00 04/14/17 20:59 03/19/17 20:18 20 MG Cyanocobalamin (Vitamin B-12 Tab) 2,000 mcg DAILY PO 03/16/17 09:00 04/15/17 08:59 03/20/17 08:05 2,000 MCG Diazepam (Valium Tab) 5 mg QID PRN PO 03/15/17 19:00 04/14/17 18:59 Fish Oil ([place]-3 (Purified Fish Oil) Cap) 1 gm DAILY PO 03/16/17 09:00 04/15/17 08:59 03/20/17 08:05 1 GM Magnesium Hydroxide (Milk Of Magnesia Susp) 30 ml DAILY PRN PO 03/15/17 19:00 04/14/17 18:59 Metoprolol Succinate (Toprol Xl Tab) 50 mg DAILY PO 03/15/17 18:46 04/14/17 18:45 03/20/17 08:05 50 MG Oxycodone HCl (Roxicodone Immediate Rel Tab) 5 mg Q4H PRN PO 03/15/17 19:00 03/29/17 18:59 03/19/17 20:18 5 MG Heparin Sodium (Porcine) (Heparin Sq 5000 Unit/0.5ml) 5,000 unit Q8 SQ 03/16/17 06:00 04/15/17 05:59 03/20/17 05:23 5,000 UNIT Famotidine (Pepcid Tab) 20 mg QAM PO 03/17/17 09:00 04/16/17 08:59 03/20/17 08:05 20 MG Cefepime HCl 1 ea 1 ea UD PRN N/A 03/17/17 09:30 04/16/17 09:29 Cefepime HCl/ Dextrose (Maxipime IV/D5 100ml) 112.5 ml @ 225 mls/hr Q24H IV 03/17/17 22:00 03/22/17 21:59 03/19/17 21:36 225 MLS/HR Ipratropium [place] (Atrovent 0.02% 0.5MG/2.5ML Neb) 0.5 mg Q4H PRN INH 03/18/17 09:15 04/17/17 09:14 03/18/17 10:22 0.5 MG Polyethylene (Miralax Powder Packet) 17 gm DAILY PO 03/19/17 09:00 04/18/17 08:59 03/20/17 08:06 17 GM Senna (Senokot Tab) 8.6 mg QAM PO 03/19/17 09:00 04/18/17 08:59 03/20/17 08:05 8.6 MG Hydralazine HCl (Apresoline Tab) 25 mg Q8 PO 03/18/17 22:00 04/17/17 21:59 03/20/17 05:20 25 MG Prednisone (PredniSONE TAB) 40 mg DAILY PO 03/21/17 09:00 04/20/17 08:59 Furosemide (Lasix Tab) 20 mg QAM PO 03/20/17 11:00 04/19/17 10:59 03/20/17 11:54 20 MG Impression (1) Acute kidney injury (2) Chronic kidney disease (3) Congestive heart failure (4) Acute respiratory failure with hypoxia (5) Contrast dye induced nephropathy (6) Anemia (7) Non-small cell carcinoma of lung (8) Pleural effusion Acute on chronic kidney injury is likely reflective of both contrast induced nephropathy and CHF. Urine sediment shows granular casts c/w ATN. Renal US is negative for obstruction. CXR shows persistent pulmonary edema and bilateral pleural effusions. Patient remains mildly hypertensive. Recommendations ACUTE KIDNEY INJURY: -- slowly resolving, creatinine 1.4, other electrolyte, blood pressure and volume status acceptable -- continue to monitor with daily renal panel, however if medically stable she is okay to be discharged with outpatient lab monitoring. -- If discharges plan please repeat renal panel in 2 days after discharge and setup for outpatient follow-up with Dr. Maria in next 2-3 weeks -- volume status seems stable, would hold any further dose of diuretics at this point CHRONIC KIDNEY DISEASE: -- Baseline creatinine is 1.0 -- Renal US report revealed mild asymmetry but no obstruction CHF: -- CXR this am is unchanged. Received Lasix and volume status improved. Suggest removing Chan catheter. -- Await echocardiogram results -- Hydralazine added to medical regimen yesterday to decrease peripheral resistance -- Recommend Cardiology consultation
--- NOTE | 2017-03-20 13:56 | Progress Note ---
Subjective Date of Service: March 20, 2017. Subjective Pt evaluation today including: conversation w/ patient, physical exam, chart review, lab review, review of studies, review of inpatient medication list States still constipated shortness of breath about the same No fevers or chills No acute events overnight Problem List Medical Problems: (1) Dyspnea Status: Acute (2) Hypoxia Status: Acute (3) Pulmonary edema Status: Acute Review of Systems Constitutional: No chills, No fever Respiratory: + shortness of breath, + sputum, No cough, No dyspnea on exertion , No wheezing Cardiac: No chest pain, No orthopnea Abdomen: + constipation, No diarrhea, No nausea, No pain, No vomiting Musculoskeletal: No joint pain, No muscle pain Female : No dysuria, No urinary frequency Objective Vital Signs Date Time Temp Pulse Resp B/P Pulse Ox O2 Delivery O2 Flow Rate FiO2 03/20/17 12:29 36.5 64 20 152/76 95 Room Air 03/20/17 12:00 Nasal Cannula 2.0 03/20/17 11:32 75 98 03/20/17 08:05 36.7 80 20 171/64 95 Nasal Cannula 2.0 03/20/17 08:00 Nasal Cannula 2.0 03/20/17 07:01 70 18 97 Nasal Cannula 2.0 03/20/17 04:00 99 Nasal Cannula 2.0 03/20/17 04:00 36.4 70 20 164/62 99 Nasal Cannula 2.0 03/20/17 02:12 70 18 95 Nasal Cannula 2.0 03/20/17 00:01 Nasal Cannula 2.0 03/19/17 23:10 36.4 71 20 146/56 97 2.0 03/19/17 20:55 73 18 95 Nasal Cannula 2.0 03/19/17 20:00 Nasal Cannula 2.0 03/19/17 18:57 36.4 75 20 145/65 96 Nasal Cannula 2.0 03/19/17 16:00 Nasal Cannula 2.0 03/19/17 15:41 36.4 73 20 157/60 95 Nasal Cannula 2.0 03/19/17 14:23 75 16 95 Nasal Cannula 2.0 Physical Exam General Appearance: WD/WN, no apparent distress Neck: supple, no adenopathy Respiratory/Chest: lungs clear, normal breath sounds Cardiovascular: no edema, no gallop Abdomen: non tender, soft 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iatric: alert, normal mood/affect Laboratory Results Last 24 Hours Test 03/20/17 05:50 White Blood Count 10.43 K/uL Red Blood Count 3.16 M/uL Hemoglobin 9.4 g/dL Hematocrit 28.5 % Mean Corpuscular Volume 90.2 fL Mean Corpuscular Hemoglobin 29.7 pg Mean Corpuscular Hemoglobin Concent 33.0 g/dl RDW Standard Deviation 57.0 fL RDW Coefficient of Variation 17.1 % Platelet Count 409 K/uL Mean Platelet Volume 9.5 fL Sodium Level 135 mmol/L Potassium Level 4.1 mmol/L Chloride Level 104 mmol/L Carbon Dioxide Level 22 mmol/L Anion Gap 9.0 mmol/L Blood Urea Nitrogen 63 mg/dl Creatinine 1.40 mg/dl Est Creatinine Clear Calc Drug Dose 23.7 ml/min Estimated GFR () 39.6 Estimated GFR (Non- 34.2 BUN/Creatinine Ratio 44.7 Random Glucose 124 mg/dl Calcium Level 8.9 mg/dl Assessment and Plan 86yo female with PMHs of lung cancer / NSCLC, recently treated for pneumonia and pleural effusions. Has bilateral pleural catheters placed in October 2016 and in Dec 2016 most recent admission was on 02/20/17 and discharged 03/01 Dr. Blair performed alteplase/dornase protocol in the past on her. CT of the chest on 02/27 showed significant improvement of the effusions. She was stable for discharge to [facility] and was doing well until 2 days [employer] she developed severe SOB that got progressively worse. last night staff at [facility] transferred her to [facility] for evaluation. then she was transferred here for care Assessment Acute hypoxic respiratory failure, multifactorial as below VANNESSA (multi factorial, contrast and lasix ) HTN crisis flash pulmonary edema recent klebsiella UTI VALORIE lung cancer - NSCLC -S/P chemotherapy acute COPD exacerbation. 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 Acute on chronic CHF exacerbation likely diastolic in nature Anxiety/depression - cont outpatient meds. gout - no flare at this time. protein calorie malnutrition - moderate - boost BID. anemia - likely of chronic diseases abdominal discomfort 2nd to use of abdominal muscle in breathing Plan: S/P institution of the MIST-2 protocol x 3, no further plans for anymore tx per thoracic surgery currently off BIPAP lasix PRN sob or overt edema ECHO to be completed renal us determined no hydronephrosis consult tobacco cutter S/P CTA chest ruled out PE mucomyst oral austin I/Os NTG patch and SL, if needed NTG drip Hydralazine IV prn systolic > 180 O2 supplement Diazepam for anxiety consult pulmnologist appreciated continue cefepime/Azithro DC vanco lactinex for c dif prophylaxis follow up sputum Cx/ blood Cx/ urine legionella/strept pepcid IV for GI prophylaxis Dr. Blair consult appreciated Dr. Bear consult appreciated DVT proph - heparin SQ patient is DNR/DNI with active medical management
[2017-03-20] MEDS ORDERED: MILK AND MOLASSES ENEMA PR ONE (14:00)
--- NOTE | 2017-03-20 15:54 | ECHOCARDIOGRAM REPORT ---
*NOTICE TO RECEIVING CONSTITUTION PARTY AGENCY This information is strictly Confidential and protected under [place] law. [place] law prohibits you from making any further disclosure of this information unless further disclosure is expressly permitted by the written consent of the person to whom it pertains or is authorized by law. A general authorization for the release of medical or other information is not sufficient for this purpose. Hospital accepts no responsibility if the information is made available to any other person, INCLUDING THE PATIENT. Interpretation Summary * Name: MARIALUISA NEWTON Study Date: 03/20/2017 06:30 AM BP: 171/64 mmHg * Patient Location: C.2T\S\S230\S\1 HR: 80 * : 1930 (M/d/yyyy) Gender: Female Height: 63 in * Age: 86 yrs Ethnicity: CA Weight: 105 lb * Ordering Physician: Toby Maria * Referring Physician: Cy Shay * Performed By: Lucia Kohler RDCS * * Reason For Study: CHF * BSA: 1.5 m2 * Patient just had lungs drained, patch over Apical window, so they are a little off axis * -- Conclusions -- * There is borderline concentric left ventricular hypertrophy. * Left ventricular systolic function is normal. * The left atrium is moderately dilated. * Moderate aortic regurgitation. * There is moderate to severe mitral regurgitation. * Right ventricular systolic pressure is elevated at 40-50mmHg. * The inferior vena cava is mildly dilated. Procedure Details * A complete two-dimensional transthoracic echocardiogram was performed (2D, M-mode, Doppler and color flow Doppler). Left Ventricle * The left ventricle is normal in size. * There is borderline concentric left ventricular hypertrophy. * Ejection Fraction = 50-55%. * Left ventricular systolic function is normal. Right Ventricle * The right ventricle is normal in size and function. Atria * The left atrium is moderately dilated. * Right atrial size is normal. Mitral Valve * The mitral valve anatomy is normal. * There is moderate to severe mitral regurgitation. Tricuspid Valve * The tricuspid valve is not well visualized, but is grossly normal. * There is mild tricuspid regurgitation. * Right ventricular systolic pressure is elevated at 40-50mmHg. Aortic Valve * The aortic valve is trileaflet. * No hemodynamically significant valvular aortic stenosis. * Moderate aortic regurgitation. * There is an eccentric jet of aortic insufficiency directed against the anterior mitral leaflet. Great Vessels * The aortic root is normal size. Pericardium/Pleural * There is no pericardial effusion. Great Vessels * The inferior vena cava is mildly dilated. MMode 2D Measurements and Calculations IVSd 1.2 cm IVSs 1.7 cm LVIDd 4.6 cm LVIDs 3.5 cm LVPWd 1.2 cm LVPWs 1.3 cm IVS/LVPW 1.1 FS 25.3 % EDV(Teich) 99.2 ml ESV(Teich) 49.6 ml EF(Teich) 50.0 % EDV(cubed) 99.7 ml ESV(cubed) 41.6 ml EF(cubed) 58.3 % % IVS thick 40.3 % % LVPW thick 16.4 % LV mass(C)d 205.9 grams LV mass(C)dI 140.0 grams/m\S\2 LV mass(C)s 198.4 grams LV mass(C)sI 134.9 grams/m\S\2 SV(Teich) 49.6 ml SI(Teich) 33.7 ml/m\S\2 SV(cubed) 58.1 ml SI(cubed) 39.5 ml/m\S\2 Ao root diam 2.8 cm Ao root area 6.3 cm\S\2 LA dimension 4.0 cm LA/Ao 1.4 LVAd ap4 25.8 cm\S\2 LVLd ap4 7.4 cm EDV(MOD-sp4) 73.8 ml EDV(sp4-el) 76.0 ml LVAs ap4 16.3 cm\S\2 LVLs ap4 6.6 cm ESV(MOD-sp4) 34.9 ml ESV(sp4-el) 34.3 ml EF(MOD-sp4) 52.7 % EF(sp4-el) 54.9 % LVAd ap2 31.5 cm\S\2 LVLd ap2 8.2 cm EDV(MOD-sp2) 103.4 ml EDV(sp2-el) 102.9 ml LVAs ap2 21.3 cm\S\2 LVLs ap2 7.5 cm ESV(MOD-sp2) 55.9 ml ESV(sp2-el) 51.3 ml EF(MOD-sp2) 46.0 % EF(sp2-el) 50.1 % LVLd %diff 9.3 % EDV(MOD-bp) 91.2 ml LVLs %diff 12.6 % ESV(MOD-bp) 45.1 ml EF(MOD-bp) 50.5 % SV(MOD-sp4) 38.9 ml SI(MOD-sp4) 26.4 ml/m\S\2 SV(MOD-sp2) 47.5 ml SI(MOD-sp2) 32.3 ml/m\S\2 SV(MOD-bp) 46.1 ml SI(MOD-bp) 31.3 ml/m\S\2 SV(sp4-el) 41.7 ml SI(sp4-el) 28.4 ml/m\S\2 SV(sp2-el) 51.6 ml SI(sp2-el) 35.1 ml/m\S\2 Doppler Measurements and Calculations MV E max carola 115.0 cm/sec MV dec time 0.19 sec Ao V2 max 103.9 cm/sec Ao max PG 4.3 mmHg Ao max PG (full) 2.7 mmHg AI max carola 242.5 cm/sec AI max PG 23.5 mmHg AI dec slope 224.5 cm/sec\S\2 AI P1/2t 316.4 msec LV V1 max PG 1.6 mmHg LV V1 max 64.0 cm/sec MR max carola 501.7 cm/sec MR max PG 100.7 mmHg TR max carola 319.5 cm/sec
[2017-03-20] MEDS: AZITHROMYCIN IV 500 MG in DEXTROSE 5% 250ML 250 ML IV SCH (19:31)
[2017-03-20] MEDS: OXYCODONE HCL IR 5 MG TAB (IMMEDIATE RELEASE) PO PRN (19:52)
[2017-03-20] MEDS: CEFEPIME IV 2000 MG in DEXTROSE 5% 100ML IV SCH (21:43)
[2017-03-20] MEDS: CITALOPRAM 20 MG TAB PO SCH (21:44)
[2017-03-21] VITALS (14 sets, daily range): BP systolic 132–160; BP diastolic 58–74; PULSE 64–80; TEMP 36.4–36.8; O2SAT 94–100
[2017-03-21] MEDS: LEVALBUTEROL 0.63MG/3 ML NEB INH SCH ×4 (02:27→18:57)
[2017-03-21] MEDS: IPRATROPIUM BROMIDE NEB SOLN 0.02% 2.5 ML VIAL INH SCH ×4 (02:27→18:57)
[2017-03-21] MEDS: HEPARIN SOD 5000 UNIT/0.5 ML CARP SQ SCH ×3 (05:54→20:51)
[2017-03-21] MEDS: OXYCODONE HCL IR 5 MG TAB (IMMEDIATE RELEASE) PO PRN ×3 (05:57→15:07)
[2017-03-21 06:09] LABS: BUN/CREATININE RATIO 44.5 (10-20); CALCIUM 8.3 mg/dl (8.5-10.1); CREATININE 1.3 mg/dl (0.60-1.20); MAGNESIUM 2.4 mg/dl (1.8-2.4); POTASSIUM 4.5 mmol/L (3.5-5.1)
[2017-03-21] MEDS: BUDESONIDE 0.25 MG/2 ML VIAL (PULMICORT) INH SCH ×2 (06:54→18:57)
[2017-03-21] MEDS: AMLODIPINE BESYLATE 5 MG TAB PO SCH (07:52)
[2017-03-21] MEDS: ASPIRIN 81 MG ECTAB PO SCH (07:52)
[2017-03-21] MEDS: OMEGA-3 (PURIFIED FISH OIL) 1 GM CAP PO SCH (07:52)
[2017-03-21] MEDS: FAMOTIDINE 20 MG TAB PO SCH (07:52)
[2017-03-21] MEDS: POLYETHYLENE (MIRALAX) 17 GM PACK PO SCH (07:53)
[2017-03-21] MEDS: CYANOCOBALAMIN 500 MCG TAB (VIT B-12) PO SCH (07:53)
[2017-03-21] MEDS: FUROSEMIDE 20 MG TAB PO SCH (07:54)
[2017-03-21] MEDS: METOPROLOL SUCC 50MG EXT REL TAB PO SCH (07:54)
[2017-03-21] MEDS: SENNA 8.6 MG TAB PO SCH (07:54)
--- NOTE | 2017-03-21 08:24 | DIAGNOSTIC IMAGING REPORT ---
CHEST ONE VIEW PORTABLE CLINICAL HISTORY: Pleural effusion. Lung cancer. COMPARISON STUDY: Chest radiograph March 19, 2017. FINDINGS: Bilateral pleural catheters are in place. There is no pneumothorax. Small bilateral pleural effusions are unchanged. Emphysema is noted. Cardiomegaly is unchanged. The appearance of the chest is unchanged with mild bilateral opacities. IMPRESSION: No change in small bilateral pleural effusions with bilateral pleural catheters in place. Electronically signed by: Jean Mcdonald M.D. 03/21/2017 8:22 AM Dictated Date/Time: 03/21/2017 8:20 AM
--- NOTE | 2017-03-21 09:59 | Nephrology Progress Note ---
Nephrology Progress Note Date of Service March 21, 2017. Chief Complaint Follow-up for acute kidney injury Diana Torres was seen and examined in her room this morning. She has been otherwise feeling fine, denies any shortness of breath or chest pain. Has been having decent urine output. Blood pressure slightly elevated. Renal function slowly improving, creatinine 1.3 this morning. Review of Systems A complete review of systems was performed. Pertinent positives are noted above. All other systems are negative. Vital Signs Last 8 Hrs Date Time Temp Pulse Resp B/P Pulse Ox O2 Delivery O2 Flow Rate FiO2 03/21/17 07:00 36.6 80 18 160/68 98 Nasal Cannula 2.0 03/21/17 06:55 64 16 98 Nasal Cannula 2.0 03/21/17 04:03 36.7 73 18 132/58 97 Nasal Cannula 2.0 03/21/17 04:00 98 Nasal Cannula 2.0 03/21/17 02:27 64 14 97 Nasal Cannula 2.0 I & O 24-Hour Column 03/21/17 08:00 Intake Total 1080 ml Output Total 1450 ml Balance -370 ml Last Recorded Weight Weight (Kilograms): 60.400 Physical Exam GENERAL: Elderly female, AAA x 3, pleasant, healthy-appearing, not in any distress. NECK: Supple, no JVD. RESPIRATORY: Normal breathing efforts, no accessory muscle use, Bibasilar crackles. CARDIOVASCULAR: S1, S2 normal, rate rhythm regular. EXTREMITY: No lower extremity edema NEURO: speech fluent. PSYCHIATRY: Normal mood and judgment Family History Negative for CKD / ESRD Social History Drug Use: none Marital Status: Housing Status: lives alone Occupation: retired . Retired. Former smoker Laboratory Results Past 24 Hours 03/21/17 05:13 Test 03/21/17 05:13 Anion Gap 7.0 mmol/L (3-11) Est Creatinine Clear Calc Drug Dose 26.2 ml/min Estimated GFR () 43.3 Estimated GFR (Non- 37.4 BUN/Creatinine Ratio 44.5 (10-20) Calcium Level 8.3 mg/dl (8.5-10.1) Magnesium Level 2.4 mg/dl (1.8-2.4) Allergies Coded Allergies: Levofloxacin (Verified Allergy, Unknown, HIVES, 01/08/17) Losartan (Verified Allergy, Unknown, HIVES, 01/08/17) Olmesartan (Verified Allergy, Unknown, HIVES, 01/08/17) Pregabalin (Verified Allergy, Unknown, HIVES, 01/08/17) Sulfa Antibiotics (Verified Allergy, Unknown, HIVES, 12/07/15) Tramadol (Verified Allergy, Unknown, HIVES, 12/07/15) Medications Current Inpatient Medications Medications (Trade) Dose Ordered Sig/Maeve Route Start Time Stop Time Status Last Admin Dose Admin Nitroglycerin 0.4 mg 0.4 mg PRN PRN SL 03/15/17 18:30 04/14/17 18:29 Azithromycin/ Dextrose (Zithromax IV/D5 250ml) 255 ml @ 170 mls/hr DAILY@1900 IV 03/15/17 19:00 03/22/17 18:59 03/20/17 19:31 170 MLS/HR Ipratropium [place] (Atrovent 0.02% 0.5MG/2.5ML Neb) 0.5 mg Q6R INH 03/15/17 21:00 04/14/17 20:59 03/21/17 06:54 0.5 MG Budesonide (Pulmicort Respules 0.25MG/ 2ML Neb Soln) 0.25 mg BIDR INH 03/15/17 20:00 04/14/17 19:59 03/21/17 06:54 0.25 MG Levalbuterol (Xopenex 0.63 Mg/ 3 Ml Neb) 0.63 mg Q6R INH 03/15/17 21:00 04/14/17 20:59 03/21/17 06:54 0.63 MG Hydralazine HCl (HydrALAZINE INJ) 20 mg Q8H PRN IV. 03/15/17 19:00 04/14/17 18:59 Acetaminophen (Tylenol Tab) 500 mg Q6H PRN PO 03/16/17 00:00 04/15/17 00:00 03/16/17 08:37 500 MG Amlodipine Besylate (Norvasc Tab) 10 mg DAILY PO 03/15/17 18:46 04/14/17 18:45 03/21/17 07:52 10 MG Aspirin (Ecotrin Tab) 81 mg QAM PO 03/16/17 09:00 04/15/17 08:59 03/21/17 07:52 81 MG Bisacodyl (Dulcolax Supp) 10 mg DAILY PRN NE 03/15/17 19:00 04/14/17 18:59 Citalopram Hydrobromide (celeXA TAB) 20 mg HS PO 03/15/17 21:00 04/14/17 20:59 03/20/17 21:44 20 MG Cyanocobalamin (Vitamin B-12 Tab) 2,000 mcg DAILY PO 03/16/17 09:00 04/15/17 08:59 03/21/17 07:53 2,000 MCG Diazepam (Valium Tab) 5 mg QID PRN PO 03/15/17 19:00 04/14/17 18:59 Fish Oil (Evans-3 (Purified Fish Oil) Cap) 1 gm DAILY PO 03/16/17 09:00 04/15/17 08:59 03/21/17 07:52 1 GM Magnesium Hydroxide (Milk Of Magnesia Susp) 30 ml DAILY PRN PO 03/15/17 19:00 04/14/17 18:59 Metoprolol Succinate (Toprol Xl Tab) 50 mg DAILY PO 03/15/17 18:46 04/14/17 18:45 03/21/17 07:54 50 MG Oxycodone HCl (Roxicodone Immediate Rel Tab) 5 mg Q4H PRN PO 03/15/17 19:00 03/29/17 18:59 03/21/17 06:37 5 MG Heparin Sodium (Porcine) (Heparin Sq 5000 Unit/0.5ml) 5,000 unit Q8 SQ 03/16/17 06:00 04/15/17 05:59 03/21/17 05:54 5,000 UNIT Famotidine (Pepcid Tab) 20 mg QAM PO 03/17/17 09:00 04/16/17 08:59 03/21/17 07:52 20 MG Cefepime HCl 1 ea 1 ea UD PRN N/A 03/17/17 09:30 04/16/17 09:29 Cefepime HCl/ Dextrose (Maxipime IV/D5 100ml) 112.5 ml @ 225 mls/hr Q24H IV 03/17/17 22:00 03/22/17 21:59 03/20/17 21:43 225 MLS/HR Ipratropium [place] (Atrovent 0.02% 0.5MG/2.5ML Neb) 0.5 mg Q4H PRN INH 03/18/17 09:15 04/17/17 09:14 03/18/17 10:22 0.5 MG Polyethylene (Miralax Powder Packet) 17 gm DAILY PO 03/19/17 09:00 04/18/17 08:59 03/21/17 07:53 17 GM Senna (Senokot Tab) 8.6 mg QAM PO 03/19/17 09:00 04/18/17 08:59 03/21/17 07:54 8.6 MG Hydralazine HCl (Apresoline Tab) 25 mg Q8 PO 03/18/17 22:00 04/17/17 21:59 03/21/17 07:53 25 MG Prednisone (PredniSONE TAB) 40 mg DAILY PO 03/21/17 09:00 04/20/17 08:59 03/21/17 07:54 40 MG Furosemide (Lasix Tab) 20 mg QAM PO 03/20/17 11:00 04/19/17 10:59 03/21/17 07:54 20 MG Impression (1) Acute kidney injury (2) Chronic kidney disease (3) Congestive heart failure (4) Acute respiratory failure with hypoxia (5) Contrast dye induced nephropathy (6) Anemia (7) Non-small cell carcinoma of lung (8) Pleural effusion Acute on chronic kidney injury is likely reflective of both contrast induced nephropathy and CHF. Urine sediment shows granular casts c/w ATN. Renal US is negative for obstruction. CXR shows persistent pulmonary edema and bilateral pleural effusions. Patient remains mildly hypertensive. Recommendations ACUTE KIDNEY INJURY: -- slowly resolving, creatinine 1.3, other electrolyte, and volume status acceptable (Baseline creatinine is 1.0) -- continue to monitor with daily renal panel, however she is okay to be discharged with outpatient lab monitoring. -- If discharges plan please repeat renal panel in 2 days after discharge and setup for outpatient follow-up with Dr. Maria in next 2-3 weeks -- volume status seems stable, would hold any further dose of diuretics at this point, use lasix 20 mg as needed --Suggest removing Chan catheter.
--- NOTE | 2017-03-21 10:35 | SURGERY PROGRESS NOTE ---
DATE: 03/21/2017 Ms. Cedeño had an x-ray checked today and I think it looks very good. I see very little in the way of fluid on either side. She does have some mild opacities; however, she is on room air this morning with saturations at 92%. She is 98% on 2 liters. Her PleurX catheter drained 200 mL from the left and only 25 from the right. I would continue her PleurX catheters for the time being.
--- NOTE | 2017-03-21 13:51 | Progress Note ---
Subjective Date of Service: March 21, 2017. Subjective Pt evaluation today including: conversation w/ patient, physical exam, chart review, lab review, review of studies, review of inpatient medication list Problem List Medical Problems: (1) Dyspnea Status: Acute (2) Hypoxia Status: Acute (3) Pulmonary edema Status: Acute Review of Systems Constitutional: No chills, No fever Respiratory: No cough, No dyspnea on exertion, No shortness of breath, No sputum, No wheezing Cardiac: No PND, No chest pain, No orthopnea Abdomen: No constipation, No diarrhea, No nausea, No pain, No vomiting Musculoskeletal: No joint pain, No muscle pain Female : No dysuria, No urinary frequency Objective Vital Signs Date Time Temp Pulse Resp B/P Pulse Ox O2 Delivery O2 Flow Rate FiO2 03/21/17 12:01 Nasal Cannula 2.0 03/21/17 11:30 36.8 77 20 160/64 94 Nasal Cannula 2.0 03/21/17 08:00 98 Nasal Cannula 2.0 03/21/17 07:00 36.6 80 18 160/68 98 Nasal Cannula 2.0 03/21/17 06:55 64 16 98 Nasal Cannula 2.0 03/21/17 04:03 36.7 73 18 132/58 97 Nasal Cannula 2.0 03/21/17 04:00 98 Nasal Cannula 2.0 03/21/17 02:27 64 14 97 Nasal Cannula 2.0 03/21/17 00:00 36.8 75 18 157/64 98 Nasal Cannula 2.0 03/20/17 23:59 98 Nasal Cannula 2.0 03/20/17 20:00 98 Nasal Cannula 2.0 03/20/17 19:15 36.3 59 16 151/67 98 Nasal Cannula 2.0 03/20/17 19:10 60 18 98 Nasal Cannula 2.0 03/20/17 16:21 36.5 70 16 154/61 100 Nasal Cannula 2.0 03/20/17 16:00 Nasal Cannula 2.0 03/20/17 14:00 70 18 98 Nasal Cannula 2.0 Physical Exam General Appearance: WD/WN, no apparent distress, + thin Neck: supple, no adenopathy Respiratory/Chest: lungs clear, + decreased breath sounds Cardiovascular: no edema, no gallop Abdomen: non tender, soft 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iatric: alert, oriented x 3 Laboratory Results Last 24 Hours Test 03/21/17 05:13 Sodium Level 136 mmol/L Potassium Level 4.5 mmol/L Chloride Level 104 mmol/L Carbon Dioxide Level 25 mmol/L Anion Gap 7.0 mmol/L Blood Urea Nitrogen 58 mg/dl Creatinine 1.30 mg/dl Est Creatinine Clear Calc Drug Dose 26.2 ml/min Estimated GFR () 43.3 Estimated GFR (Non- 37.4 BUN/Creatinine Ratio 44.5 Random Glucose 97 mg/dl Calcium Level 8.3 mg/dl Magnesium Level 2.4 mg/dl Assessment and Plan 86yo female with PMHs of lung cancer / NSCLC, recently treated for pneumonia and pleural effusions. Has bilateral pleural catheters placed in October 2016 and in Dec 2016 most recent admission was on 02/20/17 and discharged 03/01 Dr. Blair performed alteplase/dornase protocol in the past on her. CT of the chest on 02/27 showed significant improvement of the effusions. 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 last night staff at [facility] transferred her to [facility] for evaluation. then she was transferred here for care Assessment Acute hypoxic respiratory failure, multifactorial as below VANNESSA (multi factorial, contrast and lasix ) HTN crisis flash pulmonary edema recent klebsiella UTI VALORIE lung cancer - NSCLC -S/P chemotherapy acute COPD exacerbation. 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 2:40 am today. Acute on chronic CHF exacerbation likely diastolic in nature Anxiety/depression - cont outpatient meds. gout - no flare at this time. protein calorie malnutrition - moderate - boost BID. anemia - likely of chronic diseases abdominal discomfort 2nd to use of abdominal muscle in breathing Plan: S/P institution of the MIST-2 protocol x 3, no further plans for anymore tx per thoracic surgery currently off BIPAP lasix PRN sob or overt edema ECHO - Moderate aortic regurgitation. There is moderate to severe mitral regurgitation EF 50 - 55%. 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 Blair consult appreciated Dr. Bear consult appreciated DVT proph - heparin SQ patient is DNR/DNI with active medical management
[2017-03-21] MEDS: AZITHROMYCIN IV 500 MG in DEXTROSE 5% 250ML 250 ML IV SCH (19:21)
[2017-03-21] MEDS: CEFEPIME IV 2000 MG in DEXTROSE 5% 100ML IV SCH (20:49)
[2017-03-21] MEDS: CITALOPRAM 20 MG TAB PO SCH (20:50)
[2017-03-22] VITALS (11 sets, daily range): BP systolic 142–180; BP diastolic 56–70; PULSE 67–79; TEMP 36.6–37; O2SAT 93–96
[2017-03-22] MEDS: IPRATROPIUM BROMIDE NEB SOLN 0.02% 2.5 ML VIAL INH SCH ×4 (02:05→20:08)
[2017-03-22] MEDS: LEVALBUTEROL 0.63MG/3 ML NEB INH SCH ×4 (02:05→20:08)
[2017-03-22] MEDS: OXYCODONE HCL IR 5 MG TAB (IMMEDIATE RELEASE) PO PRN ×3 (02:15→18:13)
[2017-03-22] MEDS: HEPARIN SOD 5000 UNIT/0.5 ML CARP SQ SCH ×3 (06:52→21:52)
[2017-03-22 07:13] LABS: BUN/CREATININE RATIO 48.9 (10-20); CALCIUM 8.7 mg/dl (8.5-10.1); POTASSIUM 4.2 mmol/L (3.5-5.1)
[2017-03-22] MEDS: BUDESONIDE 0.25 MG/2 ML VIAL (PULMICORT) INH SCH ×2 (07:15→20:08)
[2017-03-22] MEDS: OMEGA-3 (PURIFIED FISH OIL) 1 GM CAP PO SCH (08:19)
[2017-03-22] MEDS: FAMOTIDINE 20 MG TAB PO SCH (08:20)
[2017-03-22] MEDS: SENNA 8.6 MG TAB PO SCH (08:20)
[2017-03-22] MEDS: METOPROLOL SUCC 50MG EXT REL TAB PO SCH (08:21)
[2017-03-22] MEDS: ASPIRIN 81 MG ECTAB PO SCH (08:21)
[2017-03-22] MEDS: CYANOCOBALAMIN 500 MCG TAB (VIT B-12) PO SCH (08:21)
[2017-03-22] MEDS: POLYETHYLENE (MIRALAX) 17 GM PACK PO SCH (08:22)
[2017-03-22] MEDS: AMLODIPINE BESYLATE 5 MG TAB PO SCH (08:22)
[2017-03-22] MEDS: FUROSEMIDE 20 MG TAB PO SCH (08:55)
--- NOTE | 2017-03-22 11:41 | Nephrology Progress Note ---
Nephrology Progress Note Date of Service March 22, 2017. Chief Complaint Follow-up for acute kidney injury Diana Torres was seen and examined in her room this morning. She has been otherwise feeling fine, denies any shortness of breath or chest pain. Has been having decent urine output. Blood pressure slightly elevated. Renal function improved , creatinine 1.0 this morning. Review of Systems A complete review of systems was performed. Pertinent positives are noted above. All other systems are negative. Vital Signs Last 8 Hrs Date Time Temp Pulse Resp B/P Pulse Ox O2 Delivery O2 Flow Rate FiO2 03/22/17 08:35 36.8 76 20 180/70 95 Room Air 03/22/17 07:15 72 16 95 Room Air 03/22/17 04:15 36.6 74 18 142/63 95 Room Air 03/22/17 04:00 Room Air 03/22/17 02:05 67 16 93 Room Air I & O 24-Hour Column 03/22/17 08:00 Intake Total 1196 ml Output Total 1250 ml Balance -54 ml Last Recorded Weight Weight (Kilograms): 49.500 Physical Exam GENERAL: Elderly female, AAA x 3, pleasant, healthy-appearing, not in any distress. NECK: Supple, no JVD. RESPIRATORY: Normal breathing efforts, no accessory muscle use, Bibasilar crackles. CARDIOVASCULAR: S1, S2 normal, rate rhythm regular. EXTREMITY: No lower extremity edema NEURO: speech fluent. PSYCHIATRY: Normal mood and judgment Family History Negative for CKD / ESRD Social History Drug Use: none Marital Status: Housing Status: lives alone Occupation: retired . Retired. Former smoker Laboratory Results Past 24 Hours 03/22/17 05:55 Test 03/22/17 05:55 Anion Gap 8.0 mmol/L (3-11) Est Creatinine Clear Calc Drug Dose 32.1 ml/min Estimated GFR () 59.5 Estimated GFR (Non- 51.3 BUN/Creatinine Ratio 48.9 (10-20) Calcium Level 8.7 mg/dl (8.5-10.1) Allergies Coded Allergies: Levofloxacin (Verified Allergy, Unknown, HIVES, 01/08/17) Losartan (Verified Allergy, Unknown, HIVES, 01/08/17) Olmesartan (Verified Allergy, Unknown, HIVES, 01/08/17) Pregabalin (Verified Allergy, Unknown, HIVES, 01/08/17) Sulfa Antibiotics (Verified Allergy, Unknown, HIVES, 12/07/15) Tramadol (Verified Allergy, Unknown, HIVES, 12/07/15) Medications Current Inpatient Medications Medications (Trade) Dose Ordered Sig/Maeve Route Start Time Stop Time Status Last Admin Dose Admin Nitroglycerin 0.4 mg 0.4 mg PRN PRN SL 03/15/17 18:30 04/14/17 18:29 Azithromycin/ Dextrose (Zithromax IV/D5 250ml) 255 ml @ 170 mls/hr DAILY@1900 IV 03/15/17 19:00 03/22/17 18:59 03/21/17 19:21 170 MLS/HR Ipratropium [place] (Atrovent 0.02% 0.5MG/2.5ML Neb) 0.5 mg Q6R INH 03/15/17 21:00 04/14/17 20:59 03/22/17 07:15 0.5 MG Budesonide (Pulmicort Respules 0.25MG/ 2ML Neb Soln) 0.25 mg BIDR INH 03/15/17 20:00 04/14/17 19:59 03/22/17 07:15 0.25 MG Levalbuterol (Xopenex 0.63 Mg/ 3 Ml Neb) 0.63 mg Q6R INH 03/15/17 21:00 04/14/17 20:59 03/22/17 07:15 0.63 MG Hydralazine HCl (HydrALAZINE INJ) 20 mg Q8H PRN IV. 03/15/17 19:00 04/14/17 18:59 Acetaminophen (Tylenol Tab) 500 mg Q6H PRN PO 03/16/17 00:00 04/15/17 00:00 03/16/17 08:37 500 MG Amlodipine Besylate (Norvasc Tab) 10 mg DAILY PO 03/15/17 18:46 04/14/17 18:45 03/22/17 08:22 10 MG Aspirin (Ecotrin Tab) 81 mg QAM PO 03/16/17 09:00 04/15/17 08:59 03/22/17 08:21 81 MG Bisacodyl (Dulcolax Supp) 10 mg DAILY PRN [place] 03/15/17 19:00 04/14/17 18:59 Citalopram Hydrobromide (celeXA TAB) 20 mg HS PO 03/15/17 21:00 04/14/17 20:59 03/21/17 20:50 20 MG Cyanocobalamin (Vitamin B-12 Tab) 2,000 mcg DAILY PO 03/16/17 09:00 04/15/17 08:59 03/22/17 08:21 2,000 MCG Diazepam (Valium Tab) 5 mg QID PRN PO 03/15/17 19:00 04/14/17 18:59 Fish Oil ([place]-3 (Purified Fish Oil) Cap) 1 gm DAILY PO 03/16/17 09:00 04/15/17 08:59 03/22/17 08:19 1 GM Magnesium Hydroxide (Milk Of Magnesia Susp) 30 ml DAILY PRN PO 03/15/17 19:00 04/14/17 18:59 Metoprolol Succinate (Toprol Xl Tab) 50 mg DAILY PO 03/15/17 18:46 04/14/17 18:45 03/22/17 08:21 50 MG Oxycodone HCl (Roxicodone Immediate Rel Tab) 5 mg Q4H PRN PO 03/15/17 19:00 03/29/17 18:59 03/22/17 02:15 5 MG Heparin Sodium (Porcine) (Heparin Sq 5000 Unit/0.5ml) 5,000 unit Q8 SQ 03/16/17 06:00 04/15/17 05:59 03/22/17 06:52 5,000 UNIT Famotidine (Pepcid Tab) 20 mg QAM PO 03/17/17 09:00 04/16/17 08:59 03/22/17 08:20 20 MG Cefepime HCl 1 ea 1 ea UD PRN N/A 03/17/17 09:30 04/16/17 09:29 Cefepime HCl/ Dextrose (Maxipime IV/D5 100ml) 112.5 ml @ 225 mls/hr Q24H IV 03/17/17 22:00 03/22/17 21:59 03/21/17 20:49 225 MLS/HR Ipratropium [place] (Atrovent 0.02% 0.5MG/2.5ML Neb) 0.5 mg Q4H PRN INH 03/18/17 09:15 04/17/17 09:14 03/18/17 10:22 0.5 MG Polyethylene (Miralax Powder Packet) 17 gm DAILY PO 03/19/17 09:00 04/18/17 08:59 03/22/17 08:22 17 GM Senna (Senokot Tab) 8.6 mg QAM PO 03/19/17 09:00 04/18/17 08:59 03/22/17 08:20 8.6 MG Hydralazine HCl (Apresoline Tab) 25 mg Q8 PO 03/18/17 22:00 04/17/17 21:59 03/22/17 06:47 25 MG Prednisone (PredniSONE TAB) 40 mg DAILY PO 03/21/17 09:00 04/20/17 08:59 03/22/17 08:21 40 MG Furosemide (Lasix Tab) 20 mg QAM PO 03/20/17 11:00 04/19/17 10:59 03/22/17 08:55 20 MG Impression (1) Acute kidney injury (2) Chronic kidney disease (3) Congestive heart failure (4) Acute respiratory failure with hypoxia (5) Contrast dye induced nephropathy (6) Anemia (7) Non-small cell carcinoma of lung (8) Pleural effusion Acute on chronic kidney injury is likely reflective of both contrast induced nephropathy and CHF. Urine sediment shows granular casts c/w ATN. Renal US is negative for obstruction. CXR shows persistent pulmonary edema and bilateral pleural effusions. Patient remains mildly hypertensive. Recommendations ACUTE KIDNEY INJURY: -- resolved creatinine 1.0, other electrolyte, and volume status acceptable ( Baseline creatinine is 1.0) --suggest increasing hydralazine to 50 t.i.d. --Suggest removing Chan catheter. Will sign off. for
--- NOTE | 2017-03-22 12:46 | SURGERY PROGRESS NOTE ---
DATE: 03/22/2017 SUBJECTIVE: Melissa seen today on 03/22/2017. She is on room air. She looks better to me. Her lungs sound better. I was quite happy with her x-ray yesterday. She is not draining very much at 100 on the right and 150 on the left today. However, I think that I would continue the PleurX catheters for the time being.
--- NOTE | 2017-03-22 13:40 | Progress Note ---
Subjective Date of Service: March 22, 2017. Subjective Pt evaluation today including: conversation w/ patient, physical exam, chart review, lab review, review of studies, review of inpatient medication list Pt resting comfortably in bed No shortness of breath or cough States constipation resolved No acute events overnight Problem List Medical Problems: (1) Dyspnea Status: Acute (2) Hypoxia Status: Acute (3) Pulmonary edema Status: Acute Review of Systems Constitutional: No chills, No fever Respiratory: No cough, No dyspnea on exertion, No shortness of breath, No sputum, No wheezing Cardiac: No chest pain, No orthopnea Abdomen: No constipation, No diarrhea, No nausea, No pain, No vomiting Musculoskeletal: No joint pain, No muscle pain Female : No dysuria, No urinary frequency Objective Vital Signs Date Time Temp Pulse Resp B/P Pulse Ox O2 Delivery O2 Flow Rate FiO2 03/22/17 12:15 37.0 79 20 142/56 94 Room Air 03/22/17 12:00 Room Air 03/22/17 08:35 36.8 76 20 180/70 95 Room Air 03/22/17 08:00 Room Air 03/22/17 07:15 72 16 95 Room Air 03/22/17 04:15 36.6 74 18 142/63 95 Room Air 03/22/17 04:00 Room Air 03/22/17 02:05 67 16 93 Room Air 03/22/17 00:02 36.6 72 20 156/66 95 Room Air 03/22/17 00:00 Room Air 03/21/17 20:00 100 Room Air 03/21/17 19:07 36.8 71 18 148/71 100 Room Air 03/21/17 18:57 69 16 96 Room Air 03/21/17 15:36 96 Nasal Cannula 2.0 03/21/17 15:07 36.4 75 16 153/74 96 Room Air 03/21/17 13:58 74 16 95 Room Air Physical Exam General Appearance: WD/WN, no apparent distress Neck: supple, no adenopathy Respiratory/Chest: lungs clear, + decreased breath sounds Cardiovascular: no edema, no gallop Abdomen: non tender, soft 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iatric: alert, normal mood/affect Skin: warm/dry, no rash Laboratory Results Last 24 Hours Test 03/22/17 05:55 Sodium Level 134 mmol/L Potassium Level 4.2 mmol/L Chloride Level 103 mmol/L Carbon Dioxide Level 23 mmol/L Anion Gap 8.0 mmol/L Blood Urea Nitrogen 49 mg/dl Creatinine 1.00 mg/dl Est Creatinine Clear Calc Drug Dose 32.1 ml/min Estimated GFR () 59.5 Estimated GFR (Non- 51.3 BUN/Creatinine Ratio 48.9 Random Glucose 97 mg/dl Calcium Level 8.7 mg/dl Assessment and Plan 86yo female with PMHx of lung cancer/NSCLC, recently treated for pneumonia and pleural effusions. Has bilateral pleural catheters placed in October 2016 and in Dec 2016 most recent admission was on 02/20/17 and discharged 03/01 Dr. Blair performed alteplase/dornase protocol in the past on her. CT of the chest on 02/27 showed significant improvement of the effusions. 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 last night staff at [facility] transferred her to [facility] for evaluation. then she was transferred here for care Assessment Acute hypoxic respiratory failure, multifactorial as below VANNESSA (multi factorial, contrast and lasix ) HTN crisis flash pulmonary edema recent klebsiella UTI VALORIE lung cancer - NSCLC -S/P chemotherapy acute COPD exacerbation. 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 gout - no flare at this time. protein calorie malnutrition - moderate - boost BID. anemia - likely of chronic diseases abdominal discomfort 2nd to use of abdominal muscle in breathing Plan: S/P institution of the MIST-2 protocol x 3, no further plans for anymore tx per thoracic surgery Very little output per left and right pleurX, cont conservative measures currently off BIPAP lasix PRN sob or overt edema ECHO - Moderate aortic regurgitation. There is moderate to severe mitral regurgitation EF 50 - 55%. renal us determined no hydronephrosis consult tractor operator battery, close to baseline S/P CTA chest ruled out PE mucomyst oral [place] I/Os NTG patch and SL, if needed NTG drip Hydralazine IV prn systolic > 180 O2 supplement Diazepam for anxiety consult pulmnologist appreciated continue cefepime/Azithro DC vanco lactinex for c dif prophylaxis follow up sputum Cx/ blood Cx/ urine legionella/strept pepcid IV for GI prophylaxis Dr. Blair consult appreciated Dr. Bear consult appreciated DVT proph - heparin SQ patient is DNR/DNI with active medical management
[2017-03-22] MEDS: CITALOPRAM 20 MG TAB PO SCH (21:30)
[2017-03-23] VITALS (10 sets, daily range): BP systolic 132–185; BP diastolic 57–86; PULSE 69–84; TEMP 36.4–36.8; O2SAT 93–100
[2017-03-23] MEDS: IPRATROPIUM BROMIDE NEB SOLN 0.02% 2.5 ML VIAL INH SCH ×3 (02:07→14:42)
[2017-03-23] MEDS: LEVALBUTEROL 0.63MG/3 ML NEB INH SCH ×3 (02:07→14:42)
[2017-03-23] MEDS: HEPARIN SOD 5000 UNIT/0.5 ML CARP SQ SCH ×2 (06:19→14:00)
[2017-03-23] MEDS: OXYCODONE HCL IR 5 MG TAB (IMMEDIATE RELEASE) PO PRN ×2 (06:21→13:47)
[2017-03-23] MEDS: BUDESONIDE 0.25 MG/2 ML VIAL (PULMICORT) INH SCH (07:04)
[2017-03-23] MEDS: CYANOCOBALAMIN 500 MCG TAB (VIT B-12) PO SCH (07:37)
[2017-03-23] MEDS: METOPROLOL SUCC 50MG EXT REL TAB PO SCH (07:37)
[2017-03-23] MEDS: SENNA 8.6 MG TAB PO SCH (07:37)
[2017-03-23] MEDS: AMLODIPINE BESYLATE 5 MG TAB PO SCH (07:37)
[2017-03-23] MEDS: OMEGA-3 (PURIFIED FISH OIL) 1 GM CAP PO SCH (07:37)
[2017-03-23] MEDS: FUROSEMIDE 20 MG TAB PO SCH (07:38)
[2017-03-23] MEDS: ASPIRIN 81 MG ECTAB PO SCH (07:38)
[2017-03-23] MEDS: FAMOTIDINE 20 MG TAB PO SCH (07:38)
[2017-03-23] MEDS: POLYETHYLENE (MIRALAX) 17 GM PACK PO SCH (07:41)
[2017-03-23 09:01] LABS: COMPLETE YES; EOS % 0.5 %; HEMATOCRIT 31.9 % (37-47); IG% 1.2 %; LYMPH % 11.1 %; LYMPH ABS # 1.11 K/uL (1.2-3.4); MEAN CELL VOLUME 90.6 fL (80-100); MEAN CORPUSCULAR HEMOGLOBIN 30.1 pg (25-34); MEAN CORPUSCULAR HGB CONC 33.2 g/dl (32-36); MEAN PLATELET VOLUME 10.2 fL (7.4-10.4); MONO % 11.9 %; NEUT % 75.3 %; PLATELET COUNT 480 K/uL (130-400); RED BLOOD COUNT 3.52 M/uL (4.2-5.4); WHITE BLOOD COUNT 10.01 K/uL (4.8-10.8)
[2017-03-23 09:30] LABS: BUN/CREATININE RATIO 44.2 (10-20); CALCIUM 9.1 mg/dl (8.5-10.1); CREATININE 0.96 mg/dl (0.60-1.20)
[2017-03-23] MEDS ORDERED: OXYC1TAB3 PO (12:15)
[2017-03-23] MEDS ORDERED: LSX20 PO (12:15)
[2017-03-23] MEDS ORDERED: METH4PAK PO (12:15)
[2017-03-23] MEDS ORDERED: APR25 PO (12:15)
--- NOTE | 2017-03-23 15:19 | Discharge Instructions ---
Discharge Instructions Date of Service March 23, 2017. Admission Reason for Admission: Pleural Effusion, Lung Cancer Discharge Discharge Diagnosis / Problem: Lung cancer, pleural effusion Discharge Goals Goal(s): Decrease discomfort, Improve function, Increase independence, Improve disease control, Learn about illness, Diagnostic testing, Therapeutic intervention Activity Recommendations Activity Limitations: resume your previous activity Exercise/Sports Limitations: none Shower/Bathe: no limitations . Instructions / Follow-Up Instructions / Follow-Up Patient to be discharged back to [facility] Please admitted with bilateral pleural effusions with [address] Please continue to drain once daily until further instructions from thoracic surgery Please follow up with Dr puente as scheduled Please note increase in hydralazine dosage for uncontrolled blood pressure. Also note torsemide medication stopped and patient now started on lasix once daily Please follow up with Dr Vivek Mayer in 1-2 weeks If worsening shortness of breath, chest pain, fevers or chills please report to ER Current Hospital Diet Patient's current hospital diet: AHA Diet (Heart Healthy), Low Sodium Diet (2gm Na) Discharge Diet Recommended Diet: AHA Diet (Heart Healthy), Low Sodium Diet (2gm Na) Pending Studies Studies pending at discharge: no Medical Emergencies . Who to Call and When: Medical Emergencies: If at any time you feel your situation is an emergency, please call 911 immediately. . Non-Emergent Contact Non-Emergency issues call your: Primary Care Provider Call Non-Emergent contact if: your pain is worsening . . "Provider Documentation" section prepared by Ede Newell. . VTE Core Measure Inpt VTE Proph given/why not?: Unfractionated heparin SQ
--- NOTE | 2017-03-23 16:42 | Discharge Summary ---
Discharge Summary Date of Service March 23, 2017. Discharge Summary Admission Date: March 15, 2017 at 16:58 Discharge Date: March 23, 2017 [facility] Principal Diagnosis: Pleural effusion Immunizations: Have You Had Influenza Vaccine: Unknown Consultations: Pulmonary Thoracic surgery Nephrology Medication Reconciliation New Medications: Methylprednisolone (Medrol Dosepak) 4 Mg Puneet 0 PO DAILY, #1 PKT Furosemide (Furosemide) 20 Mg Tab 20 MG PO QAM, #30 TAB Hydralazine Hcl (Apresoline) 25 Mg Tab 50 MG PO Q8, #90 TAB Changed Medications: Oxycodone Ir (Roxicodone Ir) 5 Mg Tab 1 TAB PO Q4H PRN for Severe Pain, #30 TAB (Changed from: 1-2 TAB; 12; Removed Instructions) Continued Medications: Acetaminophen (Tylenol) 500 Mg Tab 500 MG PO Q6, TAB Amlodipine (Norvasc) 10 Mg Tab 10 MG PO DAILY, TAB Ascorbic Acid (Vitamin C) 1,000 Mg Tab 500 MG PO DAILY Aspirin (Aspirin Ec) 81 Mg Tab 81 MG PO QAM Bisacodyl (Bisac-Evac) 10 Mg Supp 10 MG RE DAILY PRN for Constipation IF MOM NOT EFFECTIVE Cholecalciferol (Vitamin D) 2,000 Unit Tab 2000 UNITS PO QAM Citalopram Hydrobromide (Celexa) 20 Mg Tab 20 MG PO HS, TAB Cyanocobalamin (Vitamin B-12) 1,000 Mcg Tab 2000 MCG PO DAILY, TAB Diazepam (Valium) 5 Mg Tab 5 MG PO QID PRN for Anxiety, TAB Diphenhydramine Hcl (Benadryl Allergy) 25 Mg Tab 25 MG PO Q6 PRN for Itching Docusate Sodium (Dok) 100 Mg Tab 100 MG PO BID Famotidine (Pepcid) 20 Mg Tab 20 MG PO DAILY, TAB Fish Oil (Arnold-3) 1 Ea Cap 1000 MG PO DAILY Hydrocortisone (Topical) (Hydrocortisone) 1 % Lot 1 APPLN TOP BID PRN for Itching Ipratropium Struthers (Ipratropium Struthers) 0.5 Mg/2.5 Ml Nebu 1 VIAL NEB QID for 30 Days, #300 ML 5 Refills Magnesium Hydroxide (Milk Of Magnesia) 30 Ml Susp 30 ML PO DAILY PRN for Constipation, ML NEEDED FOR NO BOWEL MOVEMENT IN 3 DAYS Metoprolol Succ (Toprol Xl) (Toprol-Xl) 50 Mg Tabcr 50 MG PO DAILY Multiple Vitamin (Daily Hortencia) 1 Tab Tab 1 TAB PO DAILY Pentoxifylline (Pentoxifylline ER) 400 Mg Tabcr 400 MG PO BID Spironolactone (Aldactone) 25 Mg Tab 25 MG PO QAM, TAB Timolol Maleate (Ophth) (Timoptic 0.25% Oph) 0.25 % Anna Marie 1 DROP OP AMPM, BTL Umeclidinium-Vilanterol (Anoro Ellipta 62.5-25 Mcg/INH) 1 Aer Aer 1 PUFF INH DAILY Discontinued Medications: Hydralazine Hcl (Apresoline) 10 Mg Tab 20 MG PO TID 2 TABLET DOSE Oxycodone Hcl (Oxycodone Hcl) 5 Mg Cap 1 CAP PO QID for 30 Days, #120 CAP Torsemide (Demadex) 20 Mg Tab 20 MG PO DAILY, TAB Discharge Exam Review of Systems: Constitutional: No chills, No fever Respiratory: No cough, No dyspnea on exertion, No shortness of breath, No sputum, No wheezing Cardiovascular: No chest pain, No orthopnea Abdomen: No diarrhea, No nausea, No pain, No vomiting Musculoskeletal: No joint pain, No muscle pain Genitourinary - Female: No dysuria, No urinary frequency, No urinary urgency Neurologic: No paralysis, No weakness Physical Exam: General Appearance: WD/WN, no apparent distress Eyes: PERRL, EOMI Neck: supple, no adenopathy Respiratory/Chest: lungs clear, normal breath sounds Cardiovascular: no edema, no gallop Abdomen / GI: non tender, soft 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iatric: alert, oriented x 3 Hospital Course 86yo female with PMHx of lung cancer/NSCLC, recently treated for pneumonia and pleural effusions. Has bilateral pleural catheters placed in October 2016 and in Dec 2016 most recent admission was on 02/20/17 and discharged 03/01 Dr. Blair performed alteplase/dornase protocol in the past on her. CT of the chest on 02/27 showed significant improvement of the effusions. 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 last night staff at [facility] transferred her to [facility] for evaluation. then she was transferred here for care Assessment Acute hypoxic respiratory failure, multifactorial as below VANNESSA (multi factorial, contrast and lasix ) HTN crisis flash pulmonary edema recent klebsiella UTI VALORIE lung cancer - NSCLC -S/P chemotherapy acute COPD exacerbation. 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 gout - no flare at this time. protein calorie malnutrition - moderate - boost BID. anemia - likely of chronic diseases abdominal discomfort 2nd to use of abdominal muscle in breathing Plan: S/P institution of the MIST-2 protocol x 3, no further plans for anymore tx per thoracic surgery Very little output per left and right pleurX, cont conservative measures currently off BIPAP lasix PRN sob or overt edema ECHO - Moderate aortic regurgitation. There is moderate to severe mitral regurgitation EF 50 - 55%. renal us determined no hydronephrosis consult foot specialist, close to baseline S/P CTA chest ruled out PE mucomyst oral Hydralazine IV prn systolic > 180 O2 supplement Diazepam for anxiety consult pulmnologist appreciated finished course of cefepime/Azithro DC vanco lactinex for c dif prophylaxis follow up sputum Cx/ blood Cx/ urine legionella/strept pepcid IV for GI prophylaxis Dr. Blair consult appreciated, pt to be discharged back to SNF, with f/u and pleurX cath x 2 to be drained daily until f/u with Dr. Rossy Bear consult appreciated DVT proph - heparin SQ patient is DNR/DNI with active medical management Total Time Spent: Greater than 30 minutes This includes examination of the patient, discharge planning, medication reconciliation, and communication with other providers. Discharge Instructions Please refer to the electronic Patient Visit Report (Discharge Instructions) for additional information. Additional Copies To Vivek Mayer M.D.
--- NOTE | 2017-03-23 16:54 | SURGERY PROGRESS NOTE ---
DATE: 03/23/2017 DATE: 03/23/2017. Ms. Cedeño was seen today on 03/23/2017. Her PleurX catheters have drained very little, it is 75 on the right side and 25 on the left. Her labs look quite stable. She is going to be discharged today. We will continue daily drainage. I will see her back in the office in 2 weeks with an x-ray.
[2017-04-14] MEDS ORDERED: FRS/40 PO (10:48)
[2017-04-14] MEDS ORDERED: POTA10CA28 PO (10:52)
[2017-04-14] MEDS ORDERED: SENN-61 PO (10:54)
[2017-04-14] MEDS ORDERED: OXYC20TA50 PO (10:57)
[2017-04-14] MEDS ORDERED: ACET325T95 PO (10:58)
== END 2017-03-23 16:18 | DRG 291 ==
LOC: C.2T 16:58
PROVIDERS: ADMIT Hospitalist; ATTEND Hospitalist
PROC: 3E0L3GC Introduction of Other Therapeutic Substance into Pleural Cavity, Percutaneous Approach (ICD-10-PCS; principal; 2017-03-17)
DX: I13.0 Hypertensive heart and chronic kidney disease with heart failure and stage 1 through stage 4 chronic kidney disease, or unspecified chronic kidney disease (principal); J96.01 Acute respiratory failure with hypoxia; C34.12 Malignant neoplasm of upper lobe, left bronchus or lung; J91.8 Pleural effusion in other conditions classified elsewhere; I16.9 Hypertensive crisis, unspecified; J44.1 Chronic obstructive pulmonary disease with (acute) exacerbation; N18.4 Chronic kidney disease, stage 4 (severe); E44.0 Moderate protein-calorie malnutrition; I50.33 Acute on chronic diastolic (congestive) heart failure; N17.9 Acute kidney failure, unspecified; T50.1X5A Adverse effect of loop [high-ceiling] diuretics, initial encounter; T50.8X5A Adverse effect of diagnostic agents, initial encounter; M1A.9XX0 Chronic gout, unspecified, without tophus (tophi); D53.9 Nutritional anemia, unspecified; I25.10 Atherosclerotic heart disease of native coronary artery without angina pectoris; N14.2 Nephropathy induced by unspecified drug, medicament or biological substance; Z87.440 Personal history of urinary (tract) infections; F32.9 Major depressive disorder, single episode, unspecified; K59.00 Constipation, unspecified; Z87.891 Personal history of nicotine dependence; Y92.009 Unspecified place in unspecified non-institutional (private) residence as the place of occurrence of the external cause; Y92.239 Unspecified place in hospital as the place of occurrence of the external cause

== ENCOUNTER → 2017-04-12 | Outpatient (CLI) | payer OTHER ==
[~2017-04-12] MED LIST changes: +ACET325T95 PO; +APR25 PO; -CIPR-255 PO; -CRAN500C2 PO; +FRS/40 PO; -HYDR-4715 PO; -IRBE-39 PO; +LSX20 PO; -MELA1TAB22 PO; +ONDA4TAB46 PO; +OXGN; -OXYC1CAP5 PO; +OXYC20TA50 PO; +POTA10CA28 PO; +SENN-61 PO; -TORS20TA2 PO
--- NOTE | 2017-04-12 09:53 | DIAGNOSTIC IMAGING REPORT ---
CHEST 2 VIEWS ROUTINE CLINICAL HISTORY: J90 Pleural [id number] SHORTNESS OF BREATH COMPARISON STUDY: 03/21/2017 FINDINGS: The heart remains borderline enlarged. Bilateral pleural drainage catheters are again visualized. Small bilateral pleural effusions remain stable. There are improving bilateral interstitial opacities.[ There is no significant pneumothorax. IMPRESSION: 1. Bilateral pleural drainage catheters remain in place. There are improving bilateral interstitial opacities. Electronically signed by: Chris Carlos M.D. 04/12/2017 9:52 AM Dictated Date/Time: 04/12/2017 9:50 AM
== END | disposition home or self-care (01) ==
LOC: C.RAD1850 09:26
PROVIDERS: ATTEND Surgery
DX: J90 Pleural effusion, not elsewhere classified (principal)

== ENCOUNTER 2017-04-21 13:08 | Day surgery (SDC) | payer OTHER ==
[~2017-04-21] VITALS: Ht 160 cm; Wt 40.5 kg
[~2017-04-21 13:08] MED LIST changes: -ACET-1256 PO; -LSX20 PO; -ONDA4TAB46 PO; -OXGN; -OXYC1TAB3 PO; +[UNRECOGNIZED DRUG - MIXTURE] INSTIL SCH
[2017-04-21 13:26] VITALS: BP 156/72; PULSE 94; TEMP 36.8; O2SAT 100; Ht 160 cm; Wt 40.5 kg
--- NOTE | 2017-04-21 13:43 | DIAGNOSTIC IMAGING REPORT ---
CHEST ONE VIEW PORTABLE CLINICAL HISTORY: For pleurodesis. Non-small cell lung cancer. COMPARISON STUDY: Chest radiograph April 12, 2017. FINDINGS: Moderate cardiomegaly is noted. There is no pneumothorax. Interstitial thickening suggests mild pleural edema. A right basilar pleural catheter remains in place. There are small bilateral pleural effusions. Irregular left upper lobe opacity is again noted. A vertebral augmentation with the lumbar spine is noted. There are multiple compression fractures. Subchondral lucency and sclerosis within the right humeral head is noted. IMPRESSION: 1. Small bilateral pleural effusions with right basilar pleural catheter in place. 2. Interstitial thickening suggestive of pulmonary edema. 3. Redemonstration of the irregular left upper lobe opacity, better depicted on prior chest CT. Electronically signed by: Jean Mcdonald M.D. 04/21/2017 1:42 PM Dictated Date/Time: 04/21/2017 1:36 PM
[2017-04-21] MEDS ORDERED: OXYC1TAB3 PO (13:52)
[2017-04-21] MEDS ORDERED: ONDA4TAB46 PO (13:52)
[2017-04-21] MEDS ORDERED: OXGN (13:52)
[2017-04-21 14:18] VITALS: BP 146/74; PULSE 95; TEMP 36.7; O2SAT 100
--- NOTE | 2017-04-21 14:18 | Discharge Instructions ---
Discharge Instructions Date of Service Apr 21, 2017. Visit Reason for Visit: Pleural Effusion Discharge Discharge Diagnosis / Problem: Pleural Effusion Discharge Goals Goal(s): Increase independence Activity Recommendations Activity Limitations: resume your previous activity Anesthesia . Post Anesthesia Instructions: If you have had General Anesthesia or IV Sedation: * Do not drive today. * Resume driving when surgeon permits. * Do not make important decisions or sign legal documents today. * Call surgeon for: 1. Temperature elevations greater than 101 degrees F. 2. Uncontrollable pain. 3. Excessive bleeding. 4. Persistent nausea and vomiting. 5. Medication intolerance (nausea, vomiting or rash). * For nausea and vomiting use only clear liquids such as: tea, soda, bouillon until nausea subsides, then gradually increase diet as tolerated. * If you have any concerns or questions, call your surgeon's office. If physician is unavailable and it is an emergency, call 911 or go to the nearest emergency room. . Instructions / Follow-Up Instructions / Follow-Up 1. Drain right sided pleurx at 4:00 pm (1600 on 04/21/17) 2. Drain right sided pleurx at 7:00 am (0700) on 04/22/17. Call Dr. Blair's office at 8:15 am (0815) with amount. If greater than 100 cc obtained appointment may be cancelled. 3. Keep your scheduled appointment with Dr. Blair on 04/22/17 @ 11:30 am. Diet Recommendations Recommended Home Diet: resume previous diet Pending Studies Studies pending at discharge: no Medical Emergencies . Who to Call and When: Medical Emergencies: If at any time you feel your situation is an emergency, please call 911 immediately. . Non-Emergent Contact Non-Emergency issues call your: Primary Care Provider, Surgeon Call Non-Emergent contact if: you have a fever, your pain is not controlled . . "Provider Documentation" section prepared by Boris Hu. .
--- NOTE | 2017-04-21 16:28 | Progress Note ---
Progress Note Date of Service Apr 21, 2017. Progress Note 40 IU of bleomycin with 50 cc sterile water placed in right pleurex. New dressing applied. Pt. tolerated well. Pt. instructed to drain pleurex at 1600 today and again at 0700 tomorrow. She will follow up in office tomorrow at 1130
[2017-04-22] MEDS ORDERED: [UNRECOGNIZED DRUG - MIXTURE] INSTIL SCH (10:00)
--- NOTE | 2017-04-27 14:08 | OPERATIVE REPORT ---
DATE OF OPERATION: 04/21/2017 PROCEDURE: Chemical sclerosis of left pleural cavity via PleurX catheter with bleomycin. SURGEON: Dr. Blair. LAND DEVELOPMENT PROJECT MANAGER: TRIPP Alcala DESCRIPTION OF PROCEDURE: 40 international units of bleomycin was mixed with 50 mL of sterile saline. After sterilely prepping the end of the PleurX catheter was injected without difficulty using an Angiocath and a syringe. We then recapped this after cleaning the end very nicely. She tolerated it well. She will be drained by home health in couple of hours and then we will see her back in the office tomorrow. I attest to the content of the Intraoperative Record and any orders documented therein. Any exception s are noted below.
== END 2017-04-21 14:40 | disposition home or self-care (01) ==
LOC: C.ACU 13:08
PROVIDERS: ATTEND Surgery
DX: J90 Pleural effusion, not elsewhere classified (principal); C34.12 Malignant neoplasm of upper lobe, left bronchus or lung; I25.10 Atherosclerotic heart disease of native coronary artery without angina pectoris; J44.9 Chronic obstructive pulmonary disease, unspecified; G72.81 Critical illness myopathy; F41.9 Anxiety disorder, unspecified; I50.22 Chronic systolic (congestive) heart failure; Z79.82 Long term (current) use of aspirin; Z79.84 Long term (current) use of oral hypoglycemic drugs; Z79.899 Other long term (current) drug therapy